=== PATIENT | female | born 1940 | race Caucasian/White ===

== ENCOUNTER 2024-01-09 08:17 | Outpatient (CLI) | payer MEDICARE, SELFPAY ==
--- NOTE | ~2024-01-09 | MR_ITS ---
EXAMINATION: MR lumbar spine wo con DATE: 01/09/2024 08:43 INDICATION: Low back pain TECHNIQUE: Magnetic resonance imaging (MRI) of the lumbar spine was performed without intravenous con trast. Sequences included sagittal T2-weighted FSE, sagittal T2-weighted FS FSE, sagittal T1-weighted FSE, and axial T2-weighted FSE. COMPARISON: None FINDINGS: Minimal lumbar dextrocurvature. 3 mm anterolisthesis L4 on L5 and 1.5 mm anterolisthesis L3 on L4. Ve rtebral body heights are normal. Osteoarthritis related in subarticular edema-like signal change at a few of the lower lumbar facet joints. Otherwise normal marrow signal. Mild disc height loss at L2-L4 L5. Annular fissures at L3-L4 and L4-L5. The conus medullaris terminates at L1-L2. There is normal s ignal in the caudal spinal cord. Paravertebral soft tissues are unremarkable. The following disc leve ls are specifically discussed: T12-L1: Negligible central disc protrusion. There is moderate left and severe right facet joint osteo arthritis. There is no neural foraminal stenosis. There is no central canal stenosis. L1-L2: Disc is bulging. There is moderate bilateral facet joint osteoarthritis. There is mild bilater al neural foraminal stenosis. There is mild central canal stenosis. L2-L3: Disc is bulging. There is hypertrophy of the ligamentum flavum. There is moderate left and se kaur right facet joint osteoarthritis. There is old right and mild to moderate left neural foraminal stenosis. There is moderate central canal stenosis. L3-L4: Disc is bulging, more prominently on the left. There is hypertrophy of the ligamentum flavum. There is severe bilateral facet joint osteoarthritis. There is moderate bilateral, left greater than right neural foraminal stenosis. There is severe central canal stenosis measuring 6 mm AP in the mid sagittal plane and with effacement of the CSF signal surrounding the centrally clustered nerve roots. L4-L5: Disc is mildly bulging. There is severe bilateral facet joint osteoarthritis. There is mild to moderate bilateral neural foraminal stenosis. There is mild central canal stenosis including narrowi ng of the left and right lateral recesses. L5-S1: Disc is mildly bulging. There is severe bilateral facet joint osteoarthritis. There is bilater al neural foraminal stenosis. There is minimal central canal stenosis with mild narrowing of the left lateral recess. IMPRESSION: 1. Mild lumbar spondylosis with multilevel moderate to severe facet osteoarthritis is notable for sev ere central canal stenosis at L3-L4. Reviewed, dictated and finalized at location B. IMPRESSION: 1. Mild lumbar spondylosis with multilevel moderate to severe facet osteoarthri tis is notable for severe central canal stenosis at L3-L4.
== END 2024-01-09 08:18 | disposition home or self-care (01) ==
LOC: ANHIMG 08:20
PROVIDERS: PCP Internal Medicine; Visit Provider Orthopaedic Surgery
DX: M43.06 Spondylolysis, lumbar region (principal); M48.061 Spinal stenosis, lumbar region without neurogenic claudication
CPT/HCPCS: 72148

== ENCOUNTER 2024-03-04 10:14 | Outpatient (CLI) | payer MEDICARE, SELFPAY ==
--- NOTE | 2024-03-04 10:24 | ECG_ITS ---
Test Date: 2024-03-04 10:29:30 Measurements Intervals [place] Rate: 85 P: 55 [place]: 166 QRS: -32 QRSD: 135 T: 75 QT: 364 QTc: 434 Interpretive Statements SINUS RHYTHM LEFT AXIS DEVIATION LEFT BUNDLE BRANCH BLOCK BASELINE ARTIFACT- I, II, III, AVR, AVL, AVF ABNORMAL ECG No previous ECG available for comparison Electronically Signed On 03-04-2024 10:36:46 [employer] WORK[employer] by Mark Mendoza D.O.
[2024-03-04 10:50] LABS: Hematocrit 35.9 % (37.0-47.0); Hemoglobin 11.2 g/dL (12.0-15.0); Mean Corpuscular HGB Conc 31.2 g/dl (32-36); Mean Corpuscular Hemoglobin 32.4 pg (26-34); Mean Corpuscular Volume 103.8 fl (80-100); Mean Platelet Volume 9.5 fl (7.4-10.4); Platelet Count Result 224 k/mm3 (150-375); Red Blood Count 3.46 M/mm3 (4.2-5.4); Red Cell Distribution Width 12.9 % (11.5-14.5); White Blood Count 5.9 K/mm3 (4.5-10.0)
[2024-03-04 10:58] LABS: INR 0.9; Prothrombin Time 12.3 Seconds (11.1-14.7)
[2024-03-04 10:59] LABS: Partial Thromboplastin Time 36.9 Seconds (22.3-36.8)
[2024-03-04 11:10] LABS: Anion Gap 10 mmol/L (4-12); Blood Urea Nitrogen 21 mg/dL (7-17); Calcium 9.8 mg/dL (8.4-10.2); Carbon Dioxide 26 mmol/L (22-30); Chloride 105 mmol/L (98-107); Estimated Glomerular Filt Rate 39; Glucose 92 mg/dL (65-110); Potassium 4.5 mmol/L (3.4-5.0); Sodium 141 mmol/L (137-145)
[2024-03-04 11:19] LABS: Add Urine Microscopic? NO; Appearance Urine Clear (Clear); Bacteria Urine None Seen /hpf; Bilirubin Urine Negative (Negative); Blood Urine Non-Hemolyzed Trace (Negative); Color Urine Yellow (Yellow); Glucose Urine UA Negative (Negative); Hyaline Casts Urine Present /lpf; Ketones Urine Trace mg/dL (Negative); Leukocyte Esterase Ur Negative LEU/UL (Negative); Need Manual Microscopic Reviewed; Nitrate Urine Negative (Negative); Protein Urine Negative (Negative); Specific Grav Ur 1.033 (1.001-1.035); Squamous Epithelial Cell Urine None Seen /hpf (Few); Urobilinogen Urine 0.2 mg/dL (<2.0); WBC Urine 0-5 /hpf (0-3)
== END 2024-03-04 10:15 | disposition home or self-care (01) ==
LOC: ANHSURGERY 10:19
PROVIDERS: PCP Internal Medicine; Visit Provider Neurological Surgery
DX: Z01.818 Encounter for other preprocedural examination (principal); R94.31 Abnormal electrocardiogram [ECG] [EKG]; M48.062 Spinal stenosis, lumbar region with neurogenic claudication; I10 Essential (primary) hypertension
CPT/HCPCS: 36415; 80048; 81003; 85027; 85610; 85730; 93005

== ENCOUNTER 2024-05-28 11:52 | Outpatient (CLI) | payer MEDICARE, SELFPAY ==
--- OUTSIDE RECORDS SUMMARY | 2024-05-28 03:01 | XMS_ITS ---
Author Organization [facility] Address [address] [place] [address] Care Team Providers Care House Calls Nurse Name Role Phone Rm Sinclair Unavailable [phone] MEDICATIONS Medication SIG (Take, Route, Frequency, Duration) Notes Start Date End Date Status Ergocalciferol 1.25 MG (87389 UT) 1 capsule Orally Once a week for 90 day(s) 11/06/2023 2024 Active Vitamin D (Ergocalciferol) 1.25 MG (97651 UT) TAKE 1 CAPSULE BY MOUTH 1 TIME A MONTH for 90 Active Omeprazole 40 MG 1 capsule 30 minutes before morning meal Orally Once a day Active Calcitriol 0.25 MCG TAKE 1 CASULE BY AYAZ TH EVERY OTHER DAY for 180 Active Lisinopril 10 MG 1 tablet Orally Once a day Active Citalopram Hydrobromide 20 MG 1 tablet Orally Once a day Active Atorvastatin Calcium 10 MG 1 tablet Oral ly Once a day Active Calcium 600 MG 1 tablet with meals Orally Twice a day Active Diclofenac Sodium 75 MG 1 tablet as need ed Orally Twice a day Active amLODIPine Besylate 10 MG 1 tablet Orall y Once a day Active Encounters Encounter Location Date Provider Diagnosis [facility] [address] [facility] [address] [place] [address] 12/14/2023 Rm Sinclair Chronic kidney disease, stage 3a N18.31 ; Essential hypertension I10 ; Anemia, unspecified D64.9 ; Anxiety disorder, unspecified F41.9 and Gastro-esophageal reflux disease with esophagitis, without bleeding K21.00 ASSESSMENTS Encounter Date Diagnosis Assessment Notes Treatment Notes Treatment Clinical Notes Section Notes 12/14/2023 Chronic kidney disease, stage 3a (ICD-10 - N18.31) 12/14/2023 Essential hypertension (ICD-10 - I10) 12/14/2023 Anemia, unspecified (ICD-10 - D64.9) 12/14/2023 Anxiety disorder, unspecified (ICD-10 - F41.9) 12/14/2023 Gastro-esophageal reflux disease with esophagitis, without bleeding (ICD-10 - K21.00) PLAN OF TREATMENT Next Appt Details Provider Name:Rm Sinclair , 06/11/2024 02:00:00 PM, [address], [facility] [address], [place], [address], Progress Notes * LUKAS CAPPSDOB: [birth year] (83 yo F)Acc No.[id number]:12/14/2023 Progress Notes Patient:??LUKAS CAPPS Provider:??MD ELIZABETH, F.A.C.P, F.A.S .N. :1940?Age:83 Y?Sex:Fe male Date:12/14/2023 Address:[facility] [place] [address] Subjective: * Chief Complaints: * ? * Medical History:?? * Medications:??Taking Calcium 600 MG Tablet 1 tablet with meals Orally Twice a day , Taking Citalopram Hydrobromide 20 MG Tablet 1 tablet Orally Once a day , Taking Atorvastatin Calcium 10 MG Tablet 1 tablet Orally Once a day , Taking Diclofenac Sodium 75 MG Tablet Delayed Release 1 tablet as needed Orally Twice a day , Taking amLODIPine Besylate 10 MG Tablet 1 tablet Orally Once a day , Taking Lisinopril 10 MG Tablet 1 tablet Orally Once a day , Taking Omeprazole 40 MG Capsule Delayed Release 1 capsule 30 minutes before morning meal Orally Once a day , Taking Calcitriol 0.25 MCG Capsule TAKE 1 CASULE BY MOUTH EVERY OTHER DAY , Taking Ergocalciferol 1.25 MG (68960 UT) Capsule 1 capsule Orally Once a week , stop date 2024, Taking Vitamin D (Ergocalciferol) 1.25 MG (89510 UT) Capsule TAKE 1 CAPSULE BY MOUTH 1 TIME A MONTH Objective: Assessment: * Assessment: 1.??Chronic kidney disease, stage 3a - N18.31 (Primary)??2.??Essential hypertension - I10??3.??Anemia, unspecified - D64.9??4.??Anxiety disorder, unspecified - F41.9??5.??Gastro-esophageal reflux disease with esophagitis, without bleeding - K21.00?? Plan: * Treatment: * Billing Information: * Visit Code:?? [id number] Office Visit, Est Pt., Level 4. * Procedure Codes:?? * IC MAN Sign off status: Pending * Provider:??MD ELIZABETH, F.A.C.P, F.A.S .N. Date:??12/14/2023
--- OUTSIDE RECORDS SUMMARY | 2024-05-28 03:01 | XMS_ITS | Patient Health Summary ---
Author Organization [facility] Address [address] [place] [address] Care Team Providers Care Cattle Examiner Name Role Phone Rm Sinclair MD Unavailable [phone] Note from [facility],non-owned Affiliates and Associated Physician Practices is amultiple site organization consisting of ambulatory clinics and hospital sitesin [place], [place], [place] and [place]. This disclosure is being madepursuant to the Care Everywhere program and may not contain all information available regarding this patient. Last updated 18.[facility] Allergies No known active allergies Medications * Be aware that medications may not be up to date on this document. Alwaysverify current medications with the patient. * amLODIPine (Norvasc) 10 MG tablet Take 1 (one) tablet by mouth once daily * lisinopril (Prinivil; Zestril) 10 MG tablet Take 1 (one) tablet by mouth once daily * atorvastatin (Lipitor) 10 MG tablet Take 1 (one) tablet by mouth at bedtime * citalopram (CeleXA) 20 MG tablet Take 1 (one) tablet by mouth at bedtime * calcitriol (Rocaltrol) 0.25 MCG capsule Take 1 (one) capsule by mouth every 2 days * vitamin D, ergocalciferol, (Drisdol) 1.25 MG (19553 UT) capsule Take 1 (one) capsule by mouth every 30 days * acetaminophen (Tylenol) 500 MG tablet Take 1 (one) tablet by mouth every 4 hours as needed for Fever or Pain Maximum allowable Acetaminophen amount = 4 Grams (4000 mg) / 24 hours. * omeprazole (PriLOSEC) 40 MG capsule omeprazole 40 mg cpdr Social History Tobacco Use Types Packs/Day Years Used Date Smoking Tobacco: Never Smokeless Tobacco: Never Tobacco Cessation:Counseling Given: Not Answered Alcohol Use Standard Drinks/Week Comments Never 0 (1 standard drink = 0.6 oz pur e alcohol) Sex and Gender Information Value Date Recorded Sex Assigned at Not on file Gender Identity Not on file Sexual Orientation Not on file Last Filed Vital Signs Vital Sign Reading Time Taken Comments Blood Pressure 154/71 05/03/2022 1:25 PM MUSHROOM FARMER Pulse 80 05/03/2022 1:25 PM MUSHROOM FARMER Temperature 36.5 ??C (97.7 ??F) 05/03/2022 1:06 PM CS T Respiratory Rate 16 05/03/2022 1:25 PM MUSHROOM FARMER Oxygen Saturation 98% 05/03/2022 1:25 PM MUSHROOM FARMER Inhaled Oxygen Concentration - - Weight 54 kg (119 lb) 05/03/2022 9:55 AM MUSHROOM FARMER Height 157.5 cm (5' 2 ) 05/03/2022 9:55 AM MUSHROOM FARMER Body Mass Index 21.77 05/03/2022 9:55 AM MUSHROOM FARMER Medical Devices Explanted Type Area Trade Economist Device Identifier Shelf Expiration Date Model / Serial / Lot Stent Biliary 10fr 7cm Cntr Bnd [facility] Rap - [id number] Implanted:Qty: 1 on 03/01/2022 by Tam Moncada MD at [facility] Explanted:Qty: 1 on 05/03/2022 by Tam Moncada MD at [facility] N/A: Bile Duct [employer] 11/08/2023 [id number] / [id number] / [id number] Procedures * ENDOSCOPIC RETROGRADE CHOLANGIOPANCREATOGRAPHY (ERCP)(Performed 05/03/2022) Performed for Calculus of gallbladder without cholecystitis without obstruction * ENDOTRACHEAL TUBE NOTE(Performed 05/03/2022) * ERCP(Performed 05/03/2022) * ENDOSCOPIC RETROGRADE CHOLANGIOPANCREATOGRAPHY (ERCP)(Performed 03/01/2022) Performed for Gallstones * ERCP(Performed 03/01/2022) * DERMATOPATHOLOGY(Performed 01/01/2013) Results * ETT LINE PERFORMABLE (05/03/2022 11:40 AM MUSHROOM FARMER) Narrative Tamiko Gonzalez Anes Asst - 05/03/2022 11:40 AM MUSHROOM FARMER Tamiko Gonzalez Anes Asst ? 05/03/2022 11:50 AM Endotracheal Tube Placement: ? Patient Location: OR. Intubation Event Date/Time: ??05/03/2022 11:40 AM Procedure: intubation (91585). Procedure Section: ?? Sedation: under general anesthesia. Indications for Airway Management: ??anesthesia Procedure pretreatments used? ??No Induction: standard IV Patient Position: ??sniffing Mask Ventilation: easy. Blade Type: Xie Blade Size: 2 Laryngoscopy View: grade 1 (full cords) Intubation Adjuncts: stylet Tube: endotracheal tube Placement: oral Tube type: cuff - inflated Tube Size (MM): 7 Depth of Insertion (CM): 21 Measured From: lips Cuff Inflated With: air Number of Attempts: 1. Placement Verified By: direct visualization, bilateral breath sounds, chest auscultation and CO2 monitor CXR Findings: ETT in proper place. Tube secured with: ??adhesive tape. Dentition unchanged? ??Yes Difficult Airway? ??No. Procedure Start Time: 05/03/2022 11:40 AM. Staff Section ? Anesthesia Provider: Tamiko Gonzalez Anes Asst, Performed the procedure Lexi Rodgers MD GENERAL ANESTHESIA O RDERABLES * ERCP (05/03/2022 11:17 AM MUSHROOM FARMER) Report Endoscopy POC Endoscopy Department Report _ Patient Name: Ashley Chaidez ?Procedure Date: 05/03/2022 11:17 AM ?Date of : 1940 Classification: Outpatient ?Gender: Female Ethnicity: Not or ? Race: White _ Providers: ?Tam Marx MD Referring : ? Maulik Tubbs MD Procedure: ?ERCP Indications: ?Biliary stent removal Medications: ?See the Anesthesia note for documentation of the ?administered medications ?IVFs w/ LR, Indomethacin not given due to renal ?function Patient Profile: ?81F presents for repeat ERCP for stone removal and ?stent removal / revision. ERCP 02/2022: ?Choledocholithiasis treated via biliary ?sphincterotomy and balloon extraction of debris and ?stone fragments with incomplete clearance. One 10 ?Fr by 7 cm transpapillary plastic stent was placed ?into the? ? ?main bile duct. Description of Procedure: After obtaining informed consent, the scope was ?passed under direct vision. Throughout the ?procedure, the patient's blood pressure, pulse, and ?oxygen saturations were monitored continuously. The ?Duodenoscope was introduced through the mouth, and ?advanced to the duodenum and used to inject ?contrast into the bile duct. The ERCP was ?accomplished without difficulty. The patient ?tolerated the procedure well. ? Findings: ? A pre-existing plastic biliary stent was visible on the digital sales director film. The ? esophagus was successfully intubated under direct vision without ? detailed examination of the upper GI tract given the use of a ? sideviewing duodenoscope. A biliary sphincterotomy had been performed. ? The sphincterotomy appeared open. One plastic stent originating in the ? biliary tree was seen emerging from the major papilla. The stent was ? visibly patent. The stent was removed from the biliary tree using a ? snare. A short 0.035 inch soft Jagwire was easily passed into the ? biliary tree on first attempt. An adjustable biliary extraction balloon ? cannula was passed over the guidewire and the bile duct was then deeply ? cannulated. Contrast was injected. I personally interpreted the bile ? duct images. Ductal flow of contrast was adequate. Image quality was ? adequate. Contrast extended to the hepatic ducts. There were multiple ? small filling defects in the common bile duct consistent with stones. ? The biliary tree was swept with an adjustable biliary extraction balloon ? starting at the bifurcation. Many stones / stone fragments were removed ? till complete clearance. Preparations were made for cholangiography ? using the balloon occlusion technique. The balloon-tipped catheter was ? advanced to the hepatic duct bifurcation. The balloon was inflated to 15 ? mm in size. Contrast was then injected into the biliary tree and ? opacified the intrahepatic ducts. No residual filling defects were ? present. There was no indication for biliary stent replacement. ? Estimated Blood Loss: ? Estimated blood loss was minimal. Complications: ?No immediate complications. Impression: ? - Patent pre-existing biliary sphincterotomy with ?one transpapillary plastic biliary stent in place. ?The stent was removed. ?- Cholangiogram with residual stones in the main ?bile duct, completely removed via balloon ?extraction with complete ductal clearance. Moderate Sedation: ? GA Recommendation: ? - Monitor for fevers, bleeding, abdominal pain, ?jaundice. ?- Resume previous diet and medications. ?- Follow-up with Primary Care has been discussed ?with the patient/caregiver. ?- The potential complications and concerning ?symptoms/findings, including but not limited to ?early or delayed fevers, infection, pain, bleeding, ?pancreatitis and perforation, were discussed with ?the patient/caregiver. Emergency contact ?information was provided. ? Attending Participation: ??I personally performed the entire procedure. ? Procedure Code(s): ? --- Professional --- ? 05020, Endoscopic retrograde cholangiopancreatography (ERCP); with ? removal of foreign body(s) or stent(s) from biliary/pancreatic duct(s) ? 24550, Endoscopic retrograde cholangiopancreatography (ERCP); with ? removal of calculi/debris from biliary/pancreatic duct(s) ? 42417, Endoscopic catheterization of the biliary ductal system, ? radiological supervision and interpretation Diagnosis Code(s): ?--- Professional --- ?Z96.89, Presence of other specified functional ?implants ?K80.50, Calculus of bile duct without cholangitis ?or cholecystitis without obstruction ?Z46.59, Encounter for fitting and adjustment of ?other gastrointestinal appliance and device CPT copyright 2019 [employer]. All rights reserved. The codes documented in this report are preliminary and upon spindle tester review may be revised to meet current compliance requirements. Tam Marx MD 05/03/2022 12:17:03 PM Note Initiated On: 05/03/2022 11:17 AM Number of Addenda: 0 ? [address] [place] [address] [facility] 05/03/2022 11:1 7 AM MUSHROOM FARMER Tam Marx MD GI PROCEDURE ORDERABLES [facility] * ERCP (03/01/2022 8:23 AM CDT) Report Endoscopy POC Endoscopy Department Report _ Patient Name: Ashley Chaidez ?Procedure Date: 03/01/2022 8:23 AM ?Date of : 1940 Classification: Outpatient ?Gender: Female Ethnicity: Not or ? Race: White _ Providers: ?Tam Marx MD Referring MD: ? Maulik Tubbs MD Procedure: ?ERCP Indications: ?Common bile duct stone(s) Medications: ?See the Anesthesia note for documentation of the ?administered medications ?IVFs w/ LR, Indomethacin not given due to renal ?function Patient Profile: ?81F presents as direct referral for ERCP in the ?setting of abdominal pain w/ recent MRI/MRCP ?demonstrating cholelithiasis and ?choledocholithiasis. Description of Procedure: After obtaining informed consent, the scope was ?passed under direct vision. Throughout the ?procedure, the patient's blood pressure, pulse, and ?oxygen saturations were monitored continuously. The ?duodenoscope was introduced through the mouth, and ?advanced to the duodenum and used to inject ?contrast into the bile duct. The ERCP was ?accomplished without difficulty. The patient ?tolerated the procedure well. ? Findings: ? The digital sales director film was normal. The esophagus was successfully intubated ? under direct vision. The scope was advanced to a normal major papilla in ? the descending duodenum without detailed examination of the upper GI ? tract given the use of a sideviwing duodenoscope. A short 0.035 inch ? soft Jagwire was easily passed into the biliary tree on first attempt. A ? short-nosed traction sphincterotome cannula was passed over the ? guidewire and the bile duct was then deeply cannulated. Contrast was ? injected. I personally interpreted the bile duct images. Ductal flow of ? contrast was adequate. Image quality was adequate. Contrast extended to ? the hepatic ducts. The main extrahepatic bile duct was diffusely ? dilated, measuring approximately 14 mm in diameter. A filling defect ? thought to represent a stone, measuring approximately 10 mm in size was ? found in the common bile duct. The cystic duct was patent. A biliary ? sphincterotomy was made with a traction (standard) sphincterotome using ? ERBE electrocautery. There was no post-sphincterotomy bleeding. The ? biliary tree was swept with a 9-12 mm adjustable biliary extraction ? balloon starting at the bifurcation. Debris and stone fragments were ? swept from the duct with incomplete clearance. One 10 Fr by 7 cm ? transpapillary plastic stent with a single external flap and a single ? internal flap was placed into the main bile duct. Bile flowed through ? the stent. The stent was in good position. ? Estimated Blood Loss: ? Estimated blood loss was minimal. Complications: ?No immediate complications. Impression: ? - Choledocholithiasis treated via biliary ?sphincterotomy and balloon extraction of debris and ?stone fragments with incomplete clearance. ?- One 10 Fr by 7 cm transpapillary plastic stent ?was placed into the main bile duct. Moderate Sedation: ? MAC Recommendation: ? - Monitor for fevers, bleeding, abdominal pain, ?jaundice. ?- If pain free, start clear liquid diet today, then ?advance to low fat diet as tolerated tomorrow. ?- Hold any anticoagulant medications (blood ?thinners) for 2 days. Resume rest of home ?medications today. ?- Plan for repeat ERCP in 2 months. ?- Follow-up with General Surgery for expedited ?Cholecystectomy. ?- Follow-up with the referring providers has been ?discussed with the patient/caregiver. ?- The potential complications and concerning ?symptoms/findings, including but not limited to ?early or delayed fevers, infection, pain, bleeding, ?pancreatitis and perforation, were discussed with ?the patient/caregiver. Emergency contact ?information was provided. ? Attending Participation: ??I personally performed the entire procedure. ? Procedure Code(s): ? --- Professional --- ? 06678, Endoscopic retrograde cholangiopancreatography (ERCP); with ? placement of endoscopic stent into biliary or pancreatic duct, including ? pre- and post-dilation and guide wire passage, when performed, including ? sphincterotomy, when performed, each stent ? 38197, Endoscopic retrograde cholangiopancreatography (ERCP); with ? removal of calculi/debris from biliary/pancreatic duct(s) ? 17815, Endoscopic catheterization of the biliary ductal system, ? radiological supervision and interpretation Diagnosis Code(s): ?--- Professional --- ?K80.50, Calculus of bile duct without cholangitis ?or cholecystitis without obstruction CPT copyright 2019 [employer]. All rights reserved. The codes documented in this report are preliminary and upon spindle tester review may be revised to meet current compliance requirements. Tam Marx MD 03/01/2022 11:31:40 AM Note Initiated On: 03/01/2022 8:23 AM Number of Addenda: 0 ? [address] [id number] [facility] 03/01/2022 8:23 AM CDT Tam Marx MD GI PROCEDURE ORDERABLES [facility] * PATHOLOGY TISSUE FOR DERMATOLOGY (01/01/2013 12:00 AM CDT) Result CASE: [id number] PATIENT: ASHLEY CHAIDEZ PATHOLOGIC DIAGNOSIS: A. ??Right forearm distal: BLUE NEVUS, SCLEROTIC TYPE B. ??Right forearm proximal: SEBORRHEIC KERATOSIS, MACULAR C. ??Right wrist: SEBORRHEIC KERATOSIS, MACULAR CLINICAL DATA: A: ??Blue nevus. B: ??SK. C: ??SK. GROSS DESCRIPTION: A: ??Received is one formalin filled container labeled with the patient's name and designated right forearm distal. The specimen consists of a shave biopsy measuring 5x3x1 mm. Jar 0. B: ??Received is one formalin filled container labeled with the patient's name and designated right forearm proximal. The specimen consists of a shave biopsy measuring 7x6x1 mm. Jar 0. C: ??Received is one formalin filled container labeled with the patient's name and designated right wrist. The specimen consists of a shave biopsy measuring 6x4x1 mm. Jar 0. MICROSCOPIC DESCRIPTION: SPECIMEN ??A: Within the dermis there are is a relatively well circumscribed central nodule with thick collagen bundles arranged in a storiform pattern with prominent clefts. Oval, spindle-shaped and dendritic melanocytes are seen within the nodule. SPECIMEN ??B: Sections show a relatively broad, flat proliferation of small keratinocytes. The surface is gently papillated, and there is increased basilar pigmentation. SPECIMEN ??C: Sections show a relatively broad, flat proliferation of small keratinocytes. The surface is gently papillated, and there is increased basilar pigmentation. Electronically signed out by Fallon Monroe M.D., PhD. 01/03/2013 11:46:24AM [facility] Comment: Performed at: Dermatopathology Laboratory [facility] - Department of Dermatology [address] [place] [address] Phone number: [phone] Toll Free: [phone] FAX: [phone] 01/01/2013 01/02/2013 [facility] - PATHOLOGY/CYTO LOGY ORDERABLES Performing Organization Address City/State/ZIP [place] Phone Number [facility] [address] [facility] Lab [address] [phone] Care Teams Cattle Examiner Relationship Specialty [place] [address] [place] [address] PCP - [facility] 02/29/24
--- OUTSIDE RECORDS SUMMARY | 2024-05-28 03:01 | XMS_ITS | Clinical Summary ---
Author Organization [facility] Address [address] [place] [address] Care Team Providers Care Retail Coverage Merchandiser Name Role Phone Rm Sinclair MD Unavailable [phone] Source Comments [facility],non-owned Affiliates and Associated Physician Practices is amultiple site organization consisting of ambulatory clinics and hospital sitesin [place], [place], [place] and [place]. This disclosure is being madepursuant to the Care Everywhere program and may not contain all information available regarding this patient. Last updated 18.[facility] Allergies No known active allergies Medications * Be aware that medications may not be up to date on this document. Alwaysverify current medications with the patient. Medication Sig Dispensed Refills Start Date End Date Status amLODIPine (Norvasc) 10 MG tablet Take 1 (one) tablet by mouth once daily Active lisinopril (Prinivil; Zestril) 10 MG tablet Take 1 (one) tablet by mouth once daily Active atorvastatin (Lipitor) 10 MG tablet Take 1 (one) tablet by mouth at bedtime Active citalopram (CeleXA) 20 MG tablet Take 1 (one) tablet by mouth at bedtime Active calcitriol (Rocaltrol) 0.25 MCG capsule Take 1 (one) capsule by mouth every 2 days Active vitamin D, ergocalciferol, (Drisdol) 1.25 MG (92747 UT) capsule Take 1 (one) capsule by mouth every 30 days Active acetaminophen (Tylenol) 500 MG tablet Take 1 (one) tablet by mouth every 4 hours as needed for Fever or Pain Maximum allowable Acetaminophen amount = 4 Grams (4000 mg) / 24 hours. Active omeprazole (PriLOSEC) 40 MG capsule omeprazole 40 mg cpdr Act michelle Social History Tobacco Use Types Packs/Day Years [...] Comments Blood Pressure 154/71 05/03/2022 1:25 PM RETAIL PRICING COORDINATOR Pulse 80 05/03/2022 1:25 PM RETAIL PRICING COORDINATOR Temperature 36.5 ??C (97.7 ??F) 05/03/2022 1:06 PM CS T Respiratory Rate 16 05/03/2022 1:25 PM RETAIL PRICING COORDINATOR Oxygen Saturation 98% 05/03/2022 1:25 PM RETAIL PRICING COORDINATOR Inhaled Oxygen Concentration - - Weight 54 kg (119 lb) 05/03/2022 9:55 AM RETAIL PRICING COORDINATOR Height 157.5 cm (5' 2 ) 05/03/2022 9:55 AM RETAIL PRICING COORDINATOR Body Mass Index 21.77 05/03/2022 9:55 AM RETAIL PRICING COORDINATOR Plan of Treatment Health Maintenance Due Date Last Done Comments BONE DENSITY TESTING 1940 MEDICARE AWV ? 12 MONTHS 1940 DTAP/TDAP/TD VACCINES (1 - Tdap) 1961 PNEUMOCOCCAL VACCINE 50+ (1 of 1 - PCV) 1992 ZOSTER VACCINE (1 of 2) 1992 Respiratory Syncytial Virus (RSV) Vaccine Pt: or over 60 yrs (1 - 1-dose 75+ series) 2017 COVID-19 VACCINE (2 - season) 2023 02/21/2021 INFLUENZA VACCINE (#1) 2023 , 01/08/2019, 01/11/2017, Additional history exists DEPRESSION SCREENING 04/30/2024 HEPATITIS B VACCINE Aged Out No longe r eligible based on patient's age to complete this topic HIB VACCINE Aged Out No longer eligi ble based on patient's age to complete this topic HPV VACCINE Aged Out No longer eligi ble based on patient's age to complete this topic MENINGOCOCCAL (Group B) VACCINE Aged Out No longer eligible based on patient's age to complete this topic MENINGOCOCCAL VACCINE Aged Out No deana hussein eligible based on patient's age to complete this topic Medical Devices Explanted Type Area Catheterization Laboratory Technician Device Identifier Shelf Expiration Date Model / Serial / Lot Stent Biliary 10fr 7cm Cntr Bnd Temp [facility] - [id number] Implanted:Qty: 1 on 03/01/2022 by Tam Moncada MD at [facility] Explanted:Qty: 1 on 05/03/2022 by Tam Moncada MD at [facility] N/A: Bile Duct [employer] Micro[employer] 11/08/2023 [id number] / [id number] / [id number] Care Teams Retail Coverage Merchandiser Relationship Specialty [place] [address] [place] [address] PCP - [facility] 02/29/24
--- OUTSIDE RECORDS SUMMARY | 2024-05-28 03:01 | XMS_ITS | Patient Health Record ---
Author Organization [facility] [facility] Address [address] [facility] [address] [facility] [address] [place] [address] Care Team Providers Care Java Analyst Name Role Phone Rm Sinclair Unavailable [phone] REASON FOR REFERRAL No Information MEDICATIONS Medication SIG (Take, Route, Frequency, Duration) Notes Start Date End Date Status Atorvastatin Calcium 10 MG 1 tablet Oral ly Once a day Active Diclofenac Sodium 75 MG 1 tablet as need ed Orally Twice a day Active amLODIPine Besylate 10 MG 1 tablet Orall y Once a day Active Lisinopril 10 MG 1 tablet Orally Once a day Active Omeprazole 40 MG 1 capsule 30 minutes before morning meal Orally Once a day Active Calcitriol 0.25 MCG TAKE 1 CASULE BY AYAZ TH EVERY OTHER DAY for 180 Active Ergocalciferol 1.25 MG (53049 UT) 1 capsule Orally Once a week for 90 day(s) 11/06/2023 2024 Active Vitamin D (Ergocalciferol) 1.25 MG (21790 UT) TAKE 1 CAPSULE BY MOUTH 1 TIME A MONTH for 90 Active Calcium 600 MG 1 tablet with meals Orally Twice a day Active Citalopram Hydrobromide 20 MG 1 tablet Orally Once a day Active PROBLEMS Problem Type ICD Code Onset Dates Problem Status W/U Status Risk SNOMED Code Notes Problem Anxiety disorder, unspecified (F41.9) Active confirmed Anxiety disorde r (847290841) Problem Essential hypertension (I10) Active confirmed Essential hypertension (08894858) Problem Gastro-esophage al reflux disease with esophagitis, without bleeding (K21.00) Active confirmed Gastroesophagea l reflux disease with esophagitis (disorder) (992933078) Problem Chronic kidney disease, stage 3a (N18.31) Active confirmed Chronic kidney disease stage 3A (disorder) (895372760) Encounters Encounter Location Date Provider Diagnosis [place] [facility] [address] [facility] [address] [place] [address] 06/06/2023 Rm Sinclair Chronic kidney disease, stage 3a N18.31 ; Essential hypertension I10 ; Anxiety disorder, unspecified F41.9 and Gastro-esophageal reflux disease with esophagitis, without bleeding K21.00 [facility] [address] [place] [address] 09/14/2023 Rm Sinclair Chronic kidney disease, stage 3a N18.31 ; Essential hypertension I10 ; Anxiety disorder, unspecified F41.9 and Gastro-esophageal reflux disease with esophagitis, without bleeding K21.00 [facility] [address] [place] [address] 12/14/2023 Rm Sinclair Chronic kidney disease, stage 3a N18.31 ; Essential hypertension I10 ; Anemia, unspecified D64.9 ; Anxiety disorder, unspecified F41.9 and Gastro-esophageal reflux disease with esophagitis, without bleeding K21.00 [facility] [address] [place] [address] 03/14/2024 Rmpati Sinclair Chronic kidney disease, stage 3a N18.31 ; Essential hypertension I10 ; Anxiety disorder, unspecified F41.9 and Gastro-esophageal reflux disease with esophagitis, without bleeding K21.00 [facility] [address] [place] [address] 11/06/2023 Rmpati Sinclair ASSESSMENTS Encounter Date Diagnosis Assessment Notes Treatment Notes Treatment Clinical Notes Section Notes 06/06/2023 Chronic kidney disease, stage 3a (ICD-10 - N18.31) 09/14/2023 Chronic kidney disease, stage 3a (ICD-10 - N18.31) 12/14/2023 Essential hypertension (ICD-10 - I10) 12/14/2023 Chronic kidney disease, stage 3a (ICD-10 - N18.31) 03/14/2024 Chronic kidney disease, stage 3a (ICD-10 - N18.31) 03/14/2024 Essential hypertension (ICD-10 - I10) 12/14/2023 Anemia, unspecified (ICD-10 - D64.9) 09/14/2023 Essential hypertension (ICD-10 - I10) 06/06/2023 Essential hypertension (ICD-10 - I10) 06/06/2023 Anxiety disorder, unspecified (ICD-10 - F41.9) 09/14/2023 Anxiety disorder, unspecified (ICD-10 - F41.9) 12/14/2023 Anxiety disorder, unspecified (ICD-10 - F41.9) 03/14/2024 Anxiety disorder, unspecified (ICD-10 - F41.9) 12/14/2023 Gastro-esophageal reflux disease with esophagitis, without bleeding (ICD-10 - K21.00) 09/14/2023 Gastro-esophageal reflux disease with esophagitis, without bleeding (ICD-10 - K21.00) 06/06/2023 Gastro-esophageal reflux disease with esophagitis, without bleeding (ICD-10 - K21.00) 03/14/2024 Gastro-esophageal reflux disease with esophagitis, without bleeding (ICD-10 - K21.00) PLAN OF TREATMENT Next Appt Details Provider Name:Rm Sinclair , 06/11/2024 02:00:00 PM, [address] [facility], [facility] [address] [place], [address],
--- OUTSIDE RECORDS SUMMARY | 2024-05-28 03:01 | XMS_ITS | Referral Summary ---
Author Organization [facility] Address [address] [facility] [place] [address] Care Team Providers Care Hydrocrane Operator Name Role Phone Rm Sinclair MD Unavailable [phone] Source Comments [facility],non-owned Affiliates and Associated Physician Practices is amultiple site organization consisting of ambulatory clinics and hospital sitesin [place], [place], [place] and [place]. This disclosure is being madepursuant to the Care Everywhere program and may not contain all information available regarding this patient. Last updated 18.[facility] Allergies No known active allergies Medications * [...] Active vitamin D, ergocalciferol, (Drisdol) 1.25 MG (11180 UT) capsule Take 1 (one) capsule by [...] Comments Blood Pressure 154/71 05/03/2022 1:25 PM BREAKER UNIT ASSEMBLER Pulse 80 05/03/2022 1:25 PM BREAKER UNIT ASSEMBLER Temperature 36.5 ??C (97.7 ??F) 05/03/2022 1:06 PM CS T Respiratory Rate 16 05/03/2022 1:25 PM BREAKER UNIT ASSEMBLER Oxygen Saturation 98% 05/03/2022 1:25 PM BREAKER UNIT ASSEMBLER Inhaled Oxygen Concentration - - Weight 54 kg (119 lb) 05/03/2022 9:55 AM BREAKER UNIT ASSEMBLER Height 157.5 cm (5' 2 ) 05/03/2022 9:55 AM BREAKER UNIT ASSEMBLER Body Mass Index 21.77 05/03/2022 9:55 AM BREAKER UNIT ASSEMBLER Functional Status Functional Status Response Date of Assess ment Is person deaf or have serious hearing difficult y? No 05/03/2022 Is person blind or have serious difficulty seein g? No 05/03/2022 Does person have serious dif ficulty walking/climbing stairs? No 05/03/2022 Does person have difficulty dressing/bathing? No 05/03/2022 Does person have difficulty doing errands alone? No 05/03/2022 Cognitive Status Response Date of Assessm ent Does person have difficulty concentrating/remembering/making decisions? No 05/03/2022 Plan of Treatment Not on file Medical Devices Explanted Type Area Mental Health Clinician Device Identifier Shelf Expiration Date Model / Serial / Lot Stent Biliary 10fr 7cm Cntr Bnd Temp Rap - [id number] Implanted:Qty: 1 on 03/01/2022 by Tam Moncada MD at [facility] Explanted:Qty: 1 on 05/03/2022 by Tam Moncada MD at [facility] N/A: Bile Duct [employer] 11/08/2023 [id number] / [id number] / [id number] Care Teams Hydrocrane Operator Relationship Specialty [place] [address] [place] [address] PCP - [facility] 02/29/24
--- OUTSIDE RECORDS SUMMARY | 2024-05-28 03:01 | XMS_ITS | CONTINUITY OF CARE DOCUMENT ---
Author Name rolanda, rolanda Address Unknown Organization [facility] Address [address] [facility] [place] [address] Phone [phone] Care Team Providers Care Program Associate Name Role Phone Sammy Sinclair MD Unavailable [phone] Charlie Leblanc MD Unavailable Charlie Leblanc MD Unavailable PROBLEMS Condition Status Date Provider Notes CKD active Jose Elias Ahmedzai Hypertension active Jose Elias Ahmedzai Hyperlipidemia active Jose Elias Ahmedzai Abnormal EKG completed - Jose Elias Ahjeremiahzai LBBB active Jose Elias Ahmedzai Preoperative cardiovascular evaluation active Jose Elias Polanco Family hx of heart disease active Jose Elias mccurdy Dyspnea on exertion--echo ef nl, mild TR, pasp 32. stress nuc nl, 02/2024 active Jose Elias Barryi ENCOUNTERS Date Type Provider Location Encounter Diag nosis - In-person encounter Office Visit Sammy Sinclair MD [facility] Dyspnea on exertion--echo ef nl, mild TR, pasp 32. stress nuc nl, 02/2024 - In-person encounter Office Visit Sammy Sinclair MD [facility] Abnormal EKGLBBBPreoperative cardiovascular evaluationFamily hx of heart diseaseDyspnea on exertion--echo ef nl, mild TR, pasp 32. stress nuc nl, 02/2024 VITAL SIGNS Date Observation Value Provider Body Mass Index (Ratio) 24.87 kg/m2 Jagdeep Sinclair MD blood pressure, diastolic 77 mm[Hg] Ka yla Ruple blood pressure, systolic 141 mm[Hg] Vickie la Ruple blood pressure, cuff size regular Ka yla Ruple oxygen saturation, oximetry 98 % [facility] pulse rate 80 /min [facility] weight E&M 136 [lb_av] [facility] height E&M 62 [in_i] [facility] Body Mass Index (Ratio) 24.87 kg/m2 Jagdeep Sinclair MD blood pressure, diastolic 81 mm[Hg] Li nkLogic blood pressure, systolic 146 mm[Hg] Radha kLogic blood pressure, diastolic 81 mm[Hg] Ka yla Ruple blood pressure, systolic 146 mm[Hg] Vickie la Ruple blood pressure, cuff size regular Ka yla Ruple oxygen saturation, oximetry 98 % [facility] pulse rate 79 /min [facility] weight E&M 136 [lb_av] Claudia Ruple height E&M 62 [in_i] Claudia Ruple HISTORY OF MEDICATION USE Medication Status Instructions Dates Provider Indications Com ments calcitriol 0.25 mcg capsule active Sammy Sinclair MD trazodone 50 mg tablet active Sammy Sinclair MD montelukast 10 mg tablet active Sammy Sinclair MD omeprazole 40 mg capsule,delayed release(DR/EC) active Sammy Sinclair MD lisinopril 10 mg tablet active Sammy Sinclair MD amlodipine 10 mg tablet active Sammy Sinclair MD citalopram 20 mg tablet active Sammy Sinclair MD alendronate 70 mg tablet active Sammy Sinclair MD atorvastatin 10 mg tablet active Sammy Sinclair MD INSURANCE PROVIDERS Payer name Policy type / Coverage type [place] red democrat ID [employer] SENIOR [employer]LEMENTAL INS Commercial insuran ce company [id number] [place] [employer] Medicare [id number] TREATMENT PLAN Date Name Performer Cardiology:This visi t has been a part of the consistent, comprehensive, and ongoing management of the chronic medical condition(s) listed above for the patient. BP today: 141/77 P rior BP: 146/81 (03/11/2024) Her updated medication list for this problem includes: Lisinopril 10 Mg Tablet (Lisinopril) Amlodipine 10 Mg Tablet (Amlodipine) Sammy Sinclair MD Cardiology: B P today: 141/77 P rior BP: 146/81 (03/11/2024) Her updated medication list for this problem includes: Lisinopril 10 Mg Tablet (Lisinopril) Amlodipine 10 Mg Tablet (Amlodipine) [facility]: H er updated medication list for this problem includes: Atorvastatin 10 Mg Tablet (Atorvastatin) [facility]: H er updated medication list for this problem includes: Lisinopril 10 Mg Tablet (Lisinopril) Amlodipine 10 Mg Tablet (Amlodipine) [facility] H er updated medication list for this problem includes: Atorvastatin 10 Mg Tablet (Atorvastatin) Orders: C omplete Echo ([id number]) S tress Regadenoson ([id number]) [facility]: O rders: C omplete Echo ([id number]) S tress Regadenoson ([id number]) [facility]: H er updated medication list for this problem includes: Lisinopril 10 Mg Tablet (Lisinopril) Amlodipine 10 Mg Tablet (Amlodipine) Orders: C omplete Echo ([id number]) S tress Regadenoson ([id number]) [facility]: H er updated medication list for this problem includes: Lisinopril 10 Mg Tablet (Lisinopril) Amlodipine 10 Mg Tablet (Amlodipine) Orders: C omplete Echo ([id number]) S tress Regadenoson ([id number]) [facility]: H er updated medication list for this problem includes: Lisinopril 10 Mg Tablet (Lisinopril) Amlodipine 10 Mg Tablet (Amlodipine) Orders: C omplete Echo ([id number]) S tress Regadenoson ([id number]) Jose Elias [facility]ashutosh Date Name Stress Regadenoson Complete Echo HISTORY OF PROCEDURES Procedure Date Procedure Name Provider Procedure Notes S tatus Complex e/m visit add on Sammy Sinclair MD completed EKG Sammy Sinclair MD completed
--- OUTSIDE RECORDS SUMMARY | 2024-05-28 03:02 | XMS_ITS | Data Portability ---
Author Organization MD - [facility] [employer], Main Office Address [address] [place] [address] Care Team Providers Care Box Worker Name Role Phone JENNY LEBLANC Primary Care Provider [phone] JENNY LEBLANC Referring Provider Assessment Encounter Date Assessment Date Assessment LastModified by Organization Details LastModified Time 06/28/2023 06/28/2023 HPI: 82 real female, who is here for evaluation of her right wrist pain. We treated her last year for a rightists radius fracture, it was treated nonsurgically per her request. She did heal with dorsal angulation of the distal radius, as well as mild moderate shortening. It was discussed with the patient about surgical options but she declined. Patient complains of pain in the wrist particularly on the ulnar side of the wrist. It is worse, but she uses it more. She noticed soreness and some swelling in this area. She is a very active individual and does almost all of her work at her home, and her yard on her own. Patient also notices that she will get numbness in the right hand when she is driving a car or if she holds the hand higher in the air. This quickly goes away once she puts the arm down. She has had carpal tunnel release done a long time ago. numbness happens two or three times a week. Physical exam: patient has a mild deformity to the right wrist. She does have relatively good range of motion of the wrist. There is some prominence at the Mcgowan aspect of the ulna head. This area is tender. No redness or warm noted. There's no numbers or tingling in the fingers today. She does have full range of motion of her fingers. She has full pronation and supination. She has mild pain with volar and dorsal motion of the wrist. 2+ radial pulse. Impression: patient has pain in the right wrist due to multiple factors. She developed ulnar plus following her distal radius fracture. 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 This is a difficult situation as there is not necessarily a good option that is going to help her dramatically I think. She is unable to take anti-inflammatori es due to chronic kidney disease. We talked about the use of Tylenol, which may be beneficial. I also recommended that she use the wrist brace that we gave her when she was recovering from the wrist fracture and use it on a very regular basis. This will take stress off the rest joint in the carpal articulations and hopefully will help improve her symptoms. if she feels that these measures do not help enough, we would refer her to a hand surgeon for possible surgical options. 20 minutes, we spent in discussion with the patient with more than half of this and [id number] conversation. [email or web address] Not available 06/28/2023 14:01:07 Plan of Treatment Reminders Order Date Submit Date Provider Last Modified By Organization Details Last Modified Time Details Appointments Any 15 2024 10:15A Alfonzo Leblanc MD Not available Not available Not available Medicare Wellness 15 2024 08:30A Alfonzo Leblanc MD Not available Not available Not available Lab lipid panel, serum [address] (Lab), [address] [place], [address], 02/13/2024 08:24:44 vitamin B12, serum [address] (Lab), [address] [place], [address], 02/13/2024 08:24:44 Referral None recorded. Procedures None recorded. Surgeries None recorded. Imaging XR, wrist, 3 or more view 2023 024 [email or web address] s[facility], [facility], [place], [address], 06/29/2023 08:48:12 Medication Orders omeprazol e 40 mg capsule,d elayed release 2023 024 [id number] [place] [address] [facility]40591, [address], [place], [place], [id number], 03/11/2024 07:19:41 citalopra m 20 mg tablet 2023 024 [id number] [place] [address] [facility] #78190, [address], [place], [place], [id number], 03/11/2024 07:19:39 atorvasta tin 10 mg tablet 2023 024 [id number] [place] [address] [facility] #52497, [address], [place], [place], [id number], 03/11/2024 07:19:[address] 10 mg tablet [address] [facility] #27933, [address], [place], [place], [id number], 09/12/2023 12:28:47 trazodone 50 mg tablet 2023 024 [facility] #61504, [address], [place], [place], [id number], 09/12/2023 11:50:13 alendrona te 70 mg tablet 2023 024 [id number] [place] [address] [facility] #17135, [address], [id number], 03/11/2024 07:19:41 lisinopri l 10 mg tablet [address] [facility] #51591, [address], [id number], 09/12/2023 12:28:47 amlodipin e 10 mg tablet 2023 024 [facility] #42475, [address], [place], [place], [id number], 09/12/2023 12:28:47 trazodone 50 mg tablet 2024 025 [facility] #82936, [address], [place], [place], [id number], 05/13/2024 11:27:51 alendrona te 70 mg tablet 2024 025 [facility] #45942, [address], [place], [place], [id number], 05/13/2024 13:04:15 Patient TargetsNo targets recorded. Patient Instructions Encounter Date Encounter Id Patient Instructions Last Modified By Organization Details Last Modified Time 09/12/2023 [id number] dementia rating scale-2* Not available 09/12/2023 11:50:06 alcohol misuse* Not available 09/12/2023 11:50:06 depression screening* [facility] Not available 09/12/2023 11:50:06 multi-dimensiona l health assessment questionnaire* [facility] Not available 09/12/2023 11:50:06 Personalized a [facility] Plan and Screening Recommendations Advance Directives - Do you have one? Yes Advance Directives - Do we have your advance directive on file in your health record? Yes Primary Prevention/Interven tion (prevents or decreases the chance of common diseases from occurring) Smoking Risk: Non Smoker Alcohol Misuse Screening: Negative Weight: Appropriate Physical activity: Nutrition: Good Fall Risk (screened today): Low Vaccines Pneumococcal: Ordered Recommended today Recommended today, but you have declined No further needed Influenza: Chronic Disease Risks Stroke: Low Risk Intermediate Risk I have no recommendations Act michelle diagnosis, Continue current treatment plan Heart Attack: Low risk Intermediate Risk I have no recommendations Act michelle diagnosis, Continue current treatment plan Clogging of the Arteries: Low risk Intermediate Risk I have no recommendations Act michelle diagnosis, Continue current treatment plan Diabetes: Low Risk I have no recommendations Secondary Prevention/Interven tion (detects treatable diseases before they may cause symptoms, disability, or ) Breast Cancer Screening with mammogram: Cervical/Uterine/Ov arley Cancer Screening: Osteoporosis Screening: Date Screening Last Performed: Colon Cancer Screening: Colonoscopy Date Screening Last Performed: __2013___ Eye Disease Screening: Dementia Risk: Low I have no recommendations Depression Screening: Negative [email or web address] Not available 09/12/2023 12:03:33 Reason for Referral None Reported. Results Created Date Observation Date Name Description Value Unit Range Abnormal Flag Note LastModifiedBy Organization Detail LastModifiedTime 03/05/2003/05/2024 LIPID PANEL cholesterol 202 mg/dL 140-19 9 high NIH WILLI NSUS RECOM MENDA TION FOR LEVI STERO L: ADULT CHILD LOW RISK: <200 <170 BORDE RLINE : <200- 239 ----- HIGH RISK: >240 >200 Not Available [facility] (Lab) [address] [place], [address], 03/05/2024 12:54:39 03/05/2003/05/2024 LIPID PANEL triglyceride s 174 mg/dL 0-150 high NIH WILLI NSUS REPOR T RECOM MENDA TION FOR TRIGL YCERI FATUMA: ADULT CHILD LOW RISK: <150 ----- BODER LINE: 150-1 99 ----- HIGH RISK: >200 ----- Not Available [facility] (Lab) [address] [place], [address], 03/05/2024 12:54:39 03/05/2003/05/2024 LIPID PANEL HDL cholesterol 50 mg/dL 40- Not Available [facility] (Lab) [address] [place], [address], 03/05/2024 12:54:39 03/05/20 24 03/05/2024 LIPID PANEL LDL cholesterol, calculated 117 mg/dL 0-130 NIH WILLI NSUS REPOR T RECOM MENDA TIONS FOR LDL: ADULT CHILD LOW RISK <130 <110 (OPTI MAL LDL) <100 ----- BORDE RLINE : 130-1 59 ----- HIGH RISK: >160 >130 A TRIGL YCERI DE RESUL T >400 INVAL IDATE S THE CALCU LATIO N FOR LDL FRACT IONAT ION - THE LDL RESUL T WILL NOT BE REPOR ROBERT. Not Available [facility] (Lab) [address] [place], [address], 03/05/2024 12:54:39 03/05/2003/05/2024 VITAM IN B12 (TELLY MELODY ) vb12 206 pg/mL 239-93 1 low Not Available [facility] (Lab) [address] [place], [address], 03/05/2024 13:22:18 03/05/20 24 03/05/2024 FOLAT E, SERUM /PLAS MA folate 15.9 NG/mL 2.76-2 0.0 Not Available [facility] (Lab) [address] [place], [address], 03/05/2024 13:22:24 03/05/20 24 03/06/2024 TSH thyroid-stim ulating hormone 0.771 uIU/m L 0.465- 4.680 Not Available [facility] (Lab) [address] [place], [address], 03/06/2024 14:26:27 06/28/19 24 XR, wrist , 3 or more view No observ ation record ed. [email or web address] [facility] [address] [facility], [place], [address], 06/28/2023 13:55:25 01/09/20 24 01/09/2024 MRI, lumba r spine , w/o contr ast No observ ation record ed. [facility] Not Available 2023 18:00:51 03/04/20 24 03/04/2024 elect josé luis diogr am No observ ation record ed. [facility] Not Available 2023 16:22:00 03/13/20 24 03/12/2024 US, echoc ardio gram, trans thora cic, compl ete, w/ color flow No observ ation record ed. Not Available 2023 08:59:28 03/13/20 24 03/12/2024 myoca rdial perfu anusha study w/ eject ion fract ion (PROC ) No observ ation record ed. [facility] Not Available 2023 18:03:58 04/16/20 24 04/16/2024 MAMMO , scree zoraida, digit al, bilat eral [facility] [address] [address] Patien t Name: KELBY CHAIDEZ IA Access ion #: [id number] Sex: F : 1940 0 Dictat ed By: Nolvia Guzmán Attend ing Physic mohan: LATONYA LEBLANC ER Orderi ng Physic mohan: LATONAY LEBLANC ER Exam Date: 2023 10:47 AM Exam Name: MG SCRN BREAST BOB BILAT Admitt ing Diagno sis(es ): PROCED URE: SCREEN ING MAMMOG FRANCHESKA WITH TOMOSY NTHESI S REASON FOR EXAM: screen ing mammog francheska COMPAR NORMAN: MG SCRN BREAST BOB BILAT on DOS: , MG SCRN BREAST BOB BILAT 3D on DOS: 2, MG SCRN BREAST BOB BILAT 3D on DOS: , SCREEN ING BREAST BOB, BILAT 3D on DOS: 0, SCREEN ING BREAST BOB, BILAT 3D on DOS: 9 TECHNI QUE: Bilate ral CC and MLO views obtain ed. Images were obtain ed using a Digita l Tomosy nthesi s Unit. Standa rd 2D and 3D Tomosy nthesi s images were review ed. This examin ation was analyz ed using Lunit Insigh t DBT/MM G, an AI softwa re develo ped to enhanc e the effect ivenes s of breast cancer screen ing with mammog jaison. FINDIN GS: BREAST COMPOS ITION: C - The breast s are hetero geneou sly dense, which may obscur e small masses . In the right breast , no asymme trical parenc hymal patter n, fariba ectura l distor tion, pleomo rphic microc alcifi cation s or masses . In the left breast , no asymme trical parenc hymal patter n, fariba ectura l distor tion, pleomo rphic microc alcifi cation s or masses . IMPRES ANUSHA: No findin gs of malign remy. Page [address] [facility] [address] [place] [address] Patien t Name: KELBY CHAIDEZ Access ion #: [id number] Sex: F : 1940 0 Dictat ed By: Nolvia Guzmán Attend ing Physic mohan: GISELA GUTIERREZ Physic mohan: LATONYA LEBLANC ER Exam Date: 2023 10:47 AM Exam Name: MG BURGER BREAST BOB BILAT Admitt ing Diagno sis(es ): RECOMM ENDATI ON: Recomm end annual mammog francheska. ASSESS MENT: BIRADS : 1 - Negati ve Electr onical ly Signed by: Nolvia Guzmán at 2023 13:05: 51 PM Page 2 [email or web address] [facility] (Imaging) [address] [place], [address], 05/08/2024 10:38:14 Result Notes None recorded. Problems Name Problem SNOMED Code Status Onset Date Resolution Date Notes Provider Name and Address Organization Details Recorded Time Pain of right wrist 17389362370 9100 Active 2022 Not Available [facility] 4 18:27:45 Closed fracture of distal end of radius 78425134 Active 2022 Not Available [facility] 4 18:27:45 Pain of right knee joint 24421155183 4100 Active 2022 Not Available [facility] 4 18:27:45 Rhinitis 75124033 Active 2022 Not Available [facility] 4 18:27:45 Acid reflux 329385570 Active 2023 Not Available [facility] 4 18:27:45 Depressiv e disorder 11429904 Active 2023 Not Available [facility] 4 18:27:45 Osteoporo sis 79884858 Active 2023 Not Available [facility] 4 18:27:45 Insomnia 610636303 Active 2023 Jenny Leblanc MD [address] [place] [address], [phone] , [facility] 4 11:49:26 Electroca rdiogram abnormal 918781003 Active 2023 Kailey Mcelroy MA null, [facility] 4 17:20:57 Vitamin B12 deficienc y (non anemic) 42964413 Active 2023 Kailey Mcelroy MA null, [facility] 4 14:34:57 Disorder of shoulder 389529461 Completed 08/28/2022 Crissy lang RMPolina null, [facility] 3 10:56:21 Gallbladd er mass 85888032844 9104 Active 2021 Not Available [facility] 4 18:27:45 Liver function tests outside reference range 272378298 Active 2019 Not Available [facility] 4 18:27:45 Mammograp hy abnormal 604747533 Active Not Available [facility] 4 18:27:45 Excessive thirst 44269410 Active Not Available [facility] 4 18:27:45 Cobalamin deficienc y 263300422 Active 2021 Not Available [facility] 4 18:27:45 Abdominal pain 11945872 Completed 202108/28/2022 Crissy Jonespolina lang, RMA null, [facility] 3 10:56:37 Gastroeso phageal reflux disease 260451068 Active Not Available [facility] 4 18:27:45 Anemia 862148479 Active 2020 Not Available [facility] 4 18:27:45 Osteopeni a 773181666 Active 2020 Not Available [facility] 4 18:27:45 Blood in urine 21544531 Completed 201908/28/2022 Crissy Luimichael lang, RMA null, [facility] 3 10:56:31 Vitamin D deficienc y 89732022 Active 2021 Not Available [facility] 4 18:27:45 Sinusitis 72774789 Active Not Available [facility] 4 18:27:45 Osteoarth ritis 622529436 Active Not Available [facility] 4 18:27:45 Anxiety 93088340 Active 2021 Not Available [facility] 4 18:27:45 Hyperlipi demia 66414211 Active Not Available [facility] 4 18:27:45 Essential hypertens ion 37820793 Active Not Available [facility] 4 18:27:45 Osteoporo sis 55176066 Completed Jenny Leblanc MD [address] [place] [address], [phone] , [facility] 4 11:26:29 Chronic kidney disease 080816706 Active 2021 Not Available [facility] 4 18:27:45 Overactiv e urinary bladder 182076068 Active 2020 Not Available [facility] 4 18:27:45 Perniciou s anemia 62698115 Active Not Available [facility] 4 18:27:45 Hiatal hernia 58865649 Active 2021 Not Available [facility] 4 18:27:45 Psoriasis 6923646 Active Not Available [facility] 4 18:27:45 Kidney disease 85114612 Active 2021 Not Available [facility] 4 18:27:45 Kidney stone 06064499 Active 2021 Not Available [facility] 4 18:27:45 Problem Notes None recorded. Procedures Surgical History Date Name Laterality Status Provider Name and Address Organization Details Recorded Time 09/12/19 24 Medicare Wellness CPT Code, subsequent completed Anabel Johnson RN [place] 09/12/2023 11:40:50 03/27/20 22 Cholecystectomy completed Not Available [facility] 06/28/2022 03:20:17 02/16/20 21 Most Recent Bone Density completed Not Available [facility] 06/28/2022 03:20:15 05/14/19 14 Date of Last Colonoscopy completed Not Available [facility] 06/28/2022 03:20:14 Carpal tunnel surgery completed Not Available [facility] 06/28/2022 03:20:17 appendectomy completed Not Available [facility] 06/28/2022 03:20:17 section completed Not Available [facility] 06/28/2022 03:20:17 Orthopedic Procedure completed Not Available [facility] 06/28/2022 03:20:17 Orthopedic Procedure completed NIRMAL Gomez [place] 01/09/2023 10:55:01 Imaging Results Imaging Date Name Status LastModified by Organization Details LastModified Time 06/28/2023 XR, wrist, 3 or more view completed [email or web address] [facility] [address], [place], [address], 06/28/2023 13:55:25 01/09/2024 MRI, lumbar spine, w/o contrast completed [facility] Information not available 01/09/2024 18:00:51 03/04/2024 electrocardiogram completed [facility] Informa tion not available 03/04/2024 16:22:00 03/12/2024 US, echocardiogram, transthoracic, complete, w/ color flow completed [facility] Information not available 03/19/2024 08:59:28 03/12/2024 myocardial perfusion study w/ ejection fraction (PROC) completed [facility] Information not available 03/13/2024 18:03:58 04/16/2024 MAMMO, screening, digital, bilateral completed [email or web address] [facility] (Imaging) [address] [place], [address], 05/08/2024 10:38:14 Procedure Notes None recorded. Medical Equipment None Reported. Allergies No known drug allergies Medications Name Sig Start Date Stop Date Status Note LastModified by Organization Details LastModified Time amoxicilli n 500 mg capsule 06/17 completed Not Available Not Available Not Available prednisone 10 mg tablet Take by oral route. take [id number], [id number], 3a4ytqf, 7i5trxw active Not Available Not Available No t Available clindamyci n HCl 300 mg capsule TAKE 1 CAPSULE BY MOUTH 4 TIMES DAILY FOR 7 DAYS active Not Available Not Available No t Available trazodone 50 mg tablet Take 1 tablet as needed by oral route at bedtime. active Not Available Not Available No t Available atorvastat in 10 mg tablet TAKE 1 TABLET BY MOUTH EVERY DAY active Not Available Not Available No t Available oxybutynin chloride ER 10 mg tablet,ext ended release 24 hr Take 1 tablet every day by oral route. active Not Available Not Available No t Available azithromyc in 250 mg tablet TAKE 2 TABLETS (500 MG) BY ORAL ROUTE ONCE DAILY FOR 1 DAY THEN 1 TABLET (250 MG) BY ORAL ROUTE ONCE DAILY FOR 4 DAYS 09/17 completed Not Available Not Available Not Available benzonatat e 200 mg capsule Take 1 capsule 3 times a day by oral route. active Not Available Not Available No t Available hydrocodon e 5 mg-acetami nophen 325 mg tablet TAKE 1 TABLET BY MOUTH EVERY 4 HOURS 11/30 completed Not Available Not Available Not Available Ceftin 250 mg tablet Take 1 tablet every 12 hours by oral route. 10/06 completed Not Available Not Available Not Available alendronat e 70 mg tablet Take 1 tablet every week by oral route. active Not Available Not Available No t Available ciprofloxa aren 250 mg tablet Take 1 tablet every 12 hours by oral route for 5 days. 07/21 completed Not Available Not Available Not Available ciprofloxa aren 500 mg tablet 04/11 completed Not Available Not Available Not Available sulfametho xazole 800 mg-trimeth oprim 160 mg tablet TAKE 1 TABLET BY MOUTH EVERY 12 HOURS 11/04 completed Not Available Not Available Not Available omeprazole 40 mg capsule,de layed release TAKE 1 CAPSULE BY MOUTH EVERY DAY active Not Available Not Available No t Available amoxicilli n 500 mg tablet Take 1 tablet 3 times a day by oral route. 06/17 completed Not Available Not Available Not Available meloxicam 7.5 mg tablet TAKE ONE TABLET BY MOUTH TWICE DAILY active Not Available Not Available No t Available oxycodone- acetaminop hen 5 mg-325 mg tablet TAKE 1 TABLET BY MOUTH EVERY 4 TO 6 HOURS NEEDED 11/02 completed Not Available Not Available Not Available citalopram 20 mg tablet TAKE 1 TABLET BY MOUTH EVERY DAY active Not Available Not Available No t Available Kenalog 10 mg/mL suspension for injection in office 05/15 completed [facility]: 0003-04 94-20 Not Available Not Available Not Available amlodipine 10 mg tablet TAKE 1 TABLET EVERY DAY active Not Available Not Available No t Available cephalexin 500 mg capsule TAKE 1 CAPSULE BY MOUTH EVERY 6 HOURS 11/30 completed Not Available Not Available Not Available cyanocobal ray (vit B-12) 1,000 mcg/mL injection solution Inject 1 mL every month by intramus cular route as directed for 30 days. 2023 active [facility] #[id number] ABN signed / ds #4 of 4 Not Available Not Available Not Available lisinopril 10 mg tablet TAKE 1 TABLET EVERY DAY (STOP LISINOPR IL/HCTZ) active Not Available Not Available No t Available diclofenac sodium 75 mg tablet,del ayed release TAKE 1 TABLET TWICE DAILY 12/06 completed Not Available Not Available Not Available cephalexin 500 mg tablet Take 1 tablet every 6 hours by oral route. 06/03 completed Not Available Not Available Not Available montelukas t 10 mg tablet TAKE 1 TABLET BY MOUTH EVERY DAY active Not Available Not Available No t Available desonide 0.05 % lotion APPLY SPARINGL Y AND RUB GENTLY INTO THE AFFECTED AREA(S) BY TOPICAL ROUTE 2 TIMES PER DAY 09/06 completed Not Available Not Available Not Available diclofenac sodium 50 mg tablet,del ayed release active Not Available Not Available Not Available ergocalcif wanda (vitamin D2) 1,250 mcg (50,000 unit) capsule TAKE 1 CAPSULE BY MOUTH ONCE EVERY MONTH active Not Available Not Available No t Available azelastine 137 mcg (0.1 %) nasal spray Stout 2 sprays twice a day by intranas al route. 09/06 completed Not Available Not Available Not Available lisinopril 10 mg-hydroch lorothiazi de 12.5 mg tablet TAKE 1 TABLET EVERY DAY 08/04 completed Not Available Not Available Not Available methylpred nisolone 4 mg tablets in a dose pack uud 05/13 completed Not Available Not Available Not Available fluticason e propionate 50 mcg/actuat ion nasal spray,susp ension Stout 2 sprays every day by intranas al route. active Not Available Not Available No t Available calcitriol 0.25 mcg capsule TAKE 1 CAPSULE BY MOUTH EVERY OTHER DAY active Not Available Not Available No t Available B-12 1,000 mcg tablet Take by oral route. 03/02 completed Not Available Not Available Not Available aspirin not every day 11/08 completed Not Available Not Available Not Available lidocaine (PF) 10 mg/mL (1 %) injection solution In office injectio n administ ered by the provider 08/03 completed [facility]: 0409-42 76-17 Not Available Not Available Not Available GaviLyte-N 420 gram oral solution active Not Available Not Available Not Available Prolia 60 mg/mL subcutaneo us syringe Inject 1 mL by subcutan eous route. 10/11 completed Not Available Not Available Not Available ropivacain e (PF) 5 mg/mL (0.5 %) injection solution in office 05/15 completed [facility] 54287-9 64-01 Not Available Not Available Not Available cyanocobal ray (vit B-12) 1,000 mcg/mL injection kit 1 ml monthly active Not Available Not Available No t Available Fluzone High-Dose 2019-20 (PF) 180 mcg/0.5 mL intramuscu lar syringe PHARMACI ST ADMINIST ERED IMMUNIZA TION ADMINIST ERED AT TIME OF DISPENSI NG 03/05 completed Not Available Not Available Not Available Fluzone High-Dose Quad 2020-21 (PF) 240 mcg/0.7 mL IM syringe PHARMACI ST ADMINIST ERED IMMUNIZA TION ADMINIST ERED AT TIME OF DISPENSI NG 03/02 completed Not Available Not Available Not Available BinaxNOW COVID-19 Ag Self Test kit Use as Directed on the Package 01/10 completed Not Available Not Available Not Available Vitals Date Recorded Body height Body mass index (BMI) Body weight Body temperature Heart rate Oxygen saturation Oxygen saturation in Arterial blood by Pulse oximetry Systolic blood pressure Diastolic blood pressure Provider Name and Address Organization Details Last Updated DateTime 4 158.12 cm 23.4 kg/m2 45820.4 2 g 97.4 [degF] 87 /min 96 % 96 % 130 mm[Hg] 70 mm[Hg] Crissy koo [facility] Guang Lian Shi Dai 4 11:08:44 Date Recorded Body height Provider Name an d Address Organization Details Last Updated DateTime 06/28/2023 158.12 cm Malena Dove [facility] [employer] [facility] 06/28/2023 12:29:57 Date Recorded Body height Body mass index (BMI) Body weight Body temperature Heart rate Oxygen saturation Oxygen saturation in Arterial blood by Pulse oximetry Systolic blood pressure Diastolic blood pressure Provider Name and Address Organization Details Last Updated DateTime 4 158.12 cm 24.5 kg/m2 86637.2 5 g 98.4 [degF] 74 /min 99 % 99 % 126 mm[Hg] 74 mm[Hg] Haritha Cortes [facility] [employer] [facility] 4 11:26:15 Date Recorded Body height Body mass index (BMI) Body weight Body temperature Heart rate Oxygen saturation Oxygen saturation in Arterial blood by Pulse oximetry Systolic blood pressure Diastolic blood pressure Provider Name and Address Organization Details Last Updated DateTime 4 158.12 cm 24.3 kg/m2 48951.3 g 99.4 [degF] 74 /min 98 % 98 % 122 mm[Hg] 72 mm[Hg] Christiana Sterling [facility] Guang Lian Shi Dai 4 10:43:23 Date Recorded Body weight Body mass index (BMI) Body height Body temperature Heart rate Oxygen saturation Oxygen saturation in Arterial blood by Pulse oximetry Systolic blood pressure Diastolic blood pressure Provider Name and Address Organization Details Last Updated DateTime 5 64512.1 5 g 24.9 kg/m2 158.12 cm 97.6 [degF] 92 /min 97 % 97 % 120 mm[Hg] 70 mm[Hg] NIRMAL Are[facility] Guang Lian Shi Dai 5 10:52:21 Social History Question Answer Notes LastModified by Organizat ion Details LastModified Time Tobacco Smoking Status Never Smoker Not Available [employer] 06/28/2022 03:06:34 Do You Have An Advance Directive? Yes MIGRATION.50404 75833 Information not available 06/28/2022 What Is Your Level Of Alcohol Consumption? None MIGRATION.54719 24019 Information not available 06/28/2022 Are You Blind Or Do You Have Difficulty Seeing? No MIGRATION.00409 75480 Information not available 06/28/2022 What Is Your Level Of Caffeine Consumption? Moderate MIGRATION.38387 57228 Information not available 06/28/2022 How Much Tobacco Do You Chew? None MIGRATION.27688 85518 Information not available 06/28/2022 In The 14 Days Before Symptom Onset, Have You Had Close Contact With A Laboratory-confir med COVID-19 While That Case Was Ill? No MIGRATION.94548 43691 Information not available 06/28/2022 In The 14 Days Before Symptom Onset, Have You Had Close Contact With A Person Who Is Under Investigation For COVID-19 While That Person Was Ill? No MIGRATION.18550 79395 Information not available 06/28/2022 Are You Deaf Or Do You Have Serious Difficulty Hearing? No MIGRATION.76697 46113 Information not available 06/28/2022 What Type Of Diet Are You Following? REGULAR MIGRATION.12276 19200 Information not available 06/28/2022 Which Illicit Or Recreational Drugs Have You Used? None MIGRATION.53939 81813 Information not available 06/28/2022 What Is The Highest Grade Or Level Of School You Have Completed Or The Highest Degree You Have Received? [id number] MIGRATION.21122 05122 Information not available 06/28/2022 What Is Your Occupation? Retired MIGRATION.04406 24302 Information not available 06/28/2022 Have There Been Any Changes To Your Family Or Social Situation? No MIGRATION.50215 35730 Information not available 06/28/2022 What Is The Fluoride Status Of Your Home? Unknown MIGRATION.38264 21428 Information not available 06/28/2022 Are There Any Guns Present In Your Home? Yes MIGRATION.71036 69014 Information not available 06/28/2022 Do You Use Insect Repellent Routinely? No MIGRATION.19093 06657 Information not available 06/28/2022 Where Do You Live? [place]LevelHouse MIGRATION.09702 21918 Information not available 06/28/2022 Guns Present In The Home? Yes [email or web address] Information not available 09/12/2023 Are You Able To Care For Yourself? Yes [email or web address] Information not available 09/12/2023 Are You Blind Or Do Yo Have Difficulty Seeing? No [email or web address] Information not available 09/12/2023 Are You Deaf Or Do You Have Serious Difficulty Hearing? No [email or web address] Information not available 09/12/2023 Live Alone Of With Others? Alone Information not available 09/12/2023 Do You Have A Medical Power Of Community Engagement Coordinator? Yes MIGRATION.61744 01255 Information not available 06/28/2022 What Was The Date Of Your Most Recent Tobacco Screening? 09/12/2023 [email or web address] Information not available 09/12/2023 Do You Have Any Pets? No MIGRATION.32563 30510 Information not available 06/28/2022 What Is Your Relationship Status? MIGRATION.77557 53034 Information not available 06/28/2022 Do You Use Your Seat Belt Or Car Seat Routinely? Yes MIGRATION.51730 28135 Information not available 06/28/2022 Do You Have Smoke And Carbon Monoxide Detectors In Your Home? Yes MIGRATION.82643 31696 Information not available 06/28/2022 Are You Passively Exposed To Smoke? No MIGRATION.83448 90196 Information not available 06/28/2022 Are There Any Smokers In Your House? No MIGRATION.85860 28768 Information not available 06/28/2022 Do You Feel Stressed (tense, Restless, Nervous, Or Anxious, Or Unable To Sleep At Night)? [id number] MIGRATION.20876 75585 Information not available 06/28/2022 Do You Use Any Illicit Or Recreational Drugs? No MIGRATION.18062 87315 Information not available 06/28/2022 Do You Use Sunscreen Routinely? No MIGRATION.77723 21662 Information not available 06/28/2022 Have You Recently Traveled Abroad? No MIGRATION.51864 89327 Information not available 06/28/2022 Do You Have Any Dietary Restrictions? No MIGRATION.99938 34263 Information not available 06/28/2022 Do You Or Have You Ever Used Any Other Forms Of Tobacco Or Nicotine? No MIGRATION.41777 56598 Information not available 06/28/2022 Sex: Female Functional Status Question Answer Note LastModified by Organizat ion Details LastModified Time Do you have difficulty walking or climbing stairs? No MIGRATION.2362318 026 Information not available 06/28/2022 Do you have transportation difficulties? No MIGRATION.7892880 026 Information not available 06/28/2022 Are you able to walk? YESWOREST MIGRATION.8541004 026 Information not available 06/28/2022 Do you have difficulty doing errands alone? No MIGRATION.5963477 026 Information not available 06/28/2022 Are you able to care for yourself? Yes MIGRATION.4014178 026 Information not available 06/28/2022 Do you have difficulty dressing or bathing? No MIGRATION.7340488 026 Information not available 06/28/2022 What is your exercise level? Moderate [email or web address] Information not available 09/12/2023 Mental Status Question Answer Note LastModified by Organizat ion Details LastModified Time Do you have difficulty concentrating, remembering or making decisions? No MIGRATION.052797035 6 Information not available 06/28/2022 Family History Relationship Description Onset Age of this Age Resolved Age Notes LastModified by Organization Details LastModified Time Father Heart disease MIGRATION.777 [id number] Not available 06/28/2022 03:20:19 Brother Heart disease MIGRATION.712 [id number] Not available 06/28/2022 03:20:20 Brother Essential hypertension MIGRATION.916 0001289 Not available 06/28/2022 03:20:20 Brother Diabetes mellitus MIGRATION.177 [id number] Not available 06/28/2022 03:20:20 Brother Malignant neoplastic disease Colon MIGRATION.300 [id number] Not available 06/28/2022 03:20:20 Brother Depressive disorder MIGRATION.197 [id number] Not available 06/28/2022 03:20:20 Mother Essential hypertension MIGRATION.643 [id number] Not available 06/28/2022 03:20:20 Mother Malignant neoplastic disease Colon MIGRATION.638 0200928 Not available 06/28/2022 03:20:20 Mother Depressive disorder MIGRATION.576 [id number] Not available 06/28/2022 03:20:20 Son Heart disease 39 MIGRATION.180 5072602 Not available 06/28/2022 03:20:20 Medical History No medical history recorded. Gynecological History Statement/Question Response Date of Last Mammogram 02/28/2022 Date of Last Colonoscopy 05/14/2013 Most Recent Bone Density 02/15/2021 Obstetrics History GPAL:G 0 P 0 0 0 0 Immunizations Vaccine Type Date Status Note Provider Nam e and Address Organization Details Recorded Time Influenza, split virus, trivalent, preservative 3 completed Not Available [facility] 06/18/2023 18:27:46 COVID-19, mRNA, LNP-S, PF, 100 mcg/0.5mL dose or 50 mcg/0.25mL dose 1 completed Not Available [facility] 06/18/2023 18:27:46 Influenza, split virus, quadrivalent, preservative 1 completed Not Available [facility] 06/18/2023 18:27:46 SARS-COV-2 (COVID-19) vaccine, UNSPECIFIED 1 completed Not Available [facility] 06/18/2023 18:27:46 SARS-COV-2 (COVID-19) vaccine, UNSPECIFIED 1 completed Not Available [facility] 06/18/2023 18:27:46 Influenza, high-dose, quadrivalent, PF 0 completed Not Available [facility] 06/18/2023 18:27:46 Influenza, split virus, quadrivalent, preservative 7 completed [facility] Available [facility] 06/18/[facility]23 18:27:46 Influenza, high-dose, trivalent, PF 6 completed Not Available [facility] 06/18/2023 18:27:46 Influenza, high-dose, trivalent, PF 5 completed Not Available [facility] 06/18/2023 18:27:46 Influenza, high-dose, trivalent, PF 9 completed Not Available [facility] 06/18/2023 18:27:46 Influenza, high-dose, trivalent, PF 4 completed Not Available [facility] 06/18/2023 18:27:46 pneumococcal polysaccharide PPV23 8 completed Not Available [facility] 06/18/2023 18:27:46 Pneumococcal conjugate PCV 13 6 completed Not Available [facility] 06/18/2023 18:27:46 Past Encounters Encounter ID Performer Location Encounter Start Date Encounter Closed Date Diagnosis/Indication Diagnosis SNOMED-CT Code Diagnosis ICD10 Code Diagnosis Note [id number] [facility] [address] [facility] [place] [address] 08/03/2020 00:00:00 08/03/2020 12:15:59 [id number] [facility] [address] [address] 11/04/2020 00:00:00 11/04/2020 11:01:45 [id number] [facility] [address] [place] [address] 11/08/2020 00:00:00 11/08/2020 10:24:07 [id number] [facility] [place] [address] [facility] [address] [place] [address] 11/26/2020 00:00:00 11/26/2020 11:55:47 [id number] [facility] [address] [place] [address] 11/30/2020 00:00:00 11/30/2020 14:11:11 [id number] [facility] [place] [address] [facility] [place] [address] 04/05/2021 00:00:00 04/05/2021 11:18:33 [id number] [facility] [place] [address] [facility] [place] [address] 08/04/2021 00:00:00 08/04/2021 12:35:40 [id number] [facility] [place] [address] [facility] [place] [address] 12/06/2021 00:00:00 12/06/2021 10:37:02 [id number] [facility] [place] [address] [facility] [place] [address] 01/10/2022 00:00:00 01/10/2022 15:53:52 [id number] [facility] [address] [address] 01/26/2022 00:00:00 01/26/2022 15:44:57 [id number] [facility] [address] [address] 03/07/2022 00:00:00 03/07/2022 15:08:30 [id number] [facility] [address] [address] 04/04/2022 00:00:00 04/04/2022 12:40:24 [id number] [facility] [address] [place] [address] 04/10/2022 00:00:00 04/10/2022 13:15:23 [id number] Jenyn Leblanc MD [facility] [place] [address] [facility] [place] [address] 08/28/2022 10:48:06 08/28/2022 11:44:03 Essential hypertension 21711157 I10 under control Anemia 478896809 D64.9 mild and stable Gastroesop hageal reflux disease 903349989 K21.9 better with meds Hyperlipidemia 09449074 E78.5 under control Osteoarthritis 137314226 M19.90 avoid NSAIDS Overactive urinary bladder 924519738 N32.81 meds did not help Psoriasis 5230675 L40.9 meds PRN Kidney disease 63038370 N08 seeing nephrology , GFR improving, drinking water Cobalamin deficiency 190 645282 E53.8 Not on shots Vitamin D deficiency 347 32068 E55.9 on otc Kidney stone 11438121 N2 0.0 Osteopenia 667069023 M85 .80 on ca/vit d Adult heal th examination 842972230 Z00.00 Colonoscop y- 05/14/2013 , polyp, due but does not want any moreMammog francheska- 03/21, no moreDEXA- ne umovax- 04/09/2018 Prevnar 13- 04/11/2016 FLU- 12/2021 Anxiety 42401373 F41.9 better with meds [id number] Iggy Donohue MD [place] [address] 08/31/2022 15:20:37 08/31/2022 16:46:22 Pain of right wrist 3069666741 43618 M25.531 [id number] Iggy Donohue MD [place] [address] 09/07/2022 12:19:51 09/07/2022 13:35:42 Closed fracture of distal end of radius 82239286 S52.501D [id number] CRISTINA Flores [facility] [address] [facility] [address] [place] [address] 10/09/2022 14:35:07 10/09/2022 16:10:04 Closed fracture of distal end of radius 08478605 S52.501D [id number] Iggy Donohue MD [address] [address] 11/02/2022 09:53:22 11/02/2022 10:50:26 Pain of right wrist 4451513752 20068 M25.531 [id number] Iggy Donohue MD [address] [address] 11/09/2022 09:43:19 11/13/2022 09:46:20 Pain of right knee joint 4148045213 95465 M25.219 [id number] Jenny Leblanc MD [facility] [address] [place] [address] 01/09/2023 10:48:27 01/09/2023 11:30:06 Essential hypertension 34962606 I10 under control Anemia 707886255 D64.9 stable Gastroesop hageal reflux disease 036614549 K21.9 better with meds Hyperlipidemia 69050392 E78.5 under control Osteoarthritis 045868639 M19.90 avoid NSAIDS Osteopenia 509204060 M85 .80 on ca/vit d, start meds Overactive urinary bladder 540347092 N32.81 meds did not help Psoriasis 8021216 L40.9 meds PRN Kidney stone 68359741 N2 0.0 no recurrence Anxiety 24792319 F41.9 better with meds Cobalamin deficiency 190 494358 E53.8 Not on shots Vitamin D deficiency 347 43561 E55.9 on otc Kidney disease 08389354 N08 seeing nephrology , GFR improving, Adult heal th examination 550069079 Z00.00 Colonoscop y- 05/14/2013 , polyp, due but does not want any moreMammog francheska- 03/21, no moreDEXA- ne umovax- 04/09/2018 Prevnar 13- 04/11/2016 FLU- 12/2021 Postmenopausal state 764 86378 Z78.0 Rhinitis 35123087 J00 zyrtec [id number] Jenny Leblanc MD [facility] Internal Med [facility] [address] [facility] [place] [address] 05/15/2023 10:45:39 05/15/2023 11:30:01 Essential hypertension 33955095 I10 under control Anemia 307299925 D64.9 stable Gastroesop hageal reflux disease 855806248 K21.9 better with meds Hyperlipidemia 85758061 E78.5 under control Osteoarthritis 920665344 M19.90 avoid NSAIDS, tylenol Overactive urinary bladder 131332233 N32.81 meds did not help Psoriasis 5237077 L40.9 meds PRN Kidney stone 77208710 N2 0.0 no recurrence Anxiety 88763148 F41.9 better with meds Cobalamin deficiency 190 264149 E53.8 Not on shots, labs next time Vitamin D deficiency 347 45990 E55.9 on otc Kidney disease 60750548 N08 seeing nephrology , GFR stable Adult heal th examination 639291538 Z00.00 Colonoscop y- 05/14/2013 , polyp, due but does not want any moreMammog francheska- 03/20/23DE XA- 02/19/23Pn eumovax- 04/09/2018 Prevnar 13- 04/11/2016 FLU- [facility]- up to date Rhinitis 29463822 J00 zyrtec Depressive disorder 3548 9007 F32.A under control Acid reflux 453423866 K2 1.9 better with meds Osteoporosis 63440544 M8 1.0 on meds [id number] CRISTINA Flores [facility] [address] [address] 06/28/2023 12:19:38 06/28/2023 14:06:53 Pain of right wrist 2105105912 76165 M25.334 [id number] Jenny Leblanc MD [facility] [address] [place] [address] 09/12/2023 11:19:32 09/12/2023 11:53:38 Essential hypertension 70230855 I10 under control Anemia 315187523 D64.9 stable Gastroesop hageal reflux disease 262513679 K21.9 better with meds Hyperlipidemia 71333882 E78.5 under control with meds Osteoarthritis 636467268 M19.90 avoid NSAIDS, tylenol arthritis Overactive urinary bladder 539760352 N32.81 meds did not help Psoriasis 6106479 L40.9 meds PRN Kidney stone 75000291 N2 0.0 no recurrence Anxiety 32788155 F41.9 better with meds Cobalamin deficiency 190 150293 E53.8 Not on shots, labs next time Vitamin D deficiency 347 03016 E55.9 on otc Kidney disease 16926661 N08 GFR stable Adult heal th examination 977278884 Z00.00 Colonoscop y- 05/14/2013 , polyp, due but does not want any moreMammog francheska- 03/20/23DE XA- 02/19/23Pn eumovax- 04/09/2018 Prevnar 04/11/201602/2023 [facility]- up to date Rhinitis 00825377 J00 zyrtec Depressive disorder 3548 9007 F32.A under control Acid reflux 230004216 K2 1.9 better with meds Osteoporosis 92043432 M8 1.0 on meds Osteopenia 758703989 M85 .80 on ca/vit d, start meds Screening for disorder 962518528 Z13.9 Insomnia 862699639 G47.0 0 start Trazodone [id number] Jenny Leblanc MD [facility] [address] [place] [address] 01/14/2024 10:33:22 01/14/2024 11:07:27 Essential hypertension 60264367 I10 under control Anemia 267536571 D64.9 stable Gastroesop hageal reflux disease 974077616 K21.9 better with meds Hyperlipidemia 76965618 E78.5 under control Osteoarthritis 463782638 M19.90 avoid NSAIDS, tylenol Overactive urinary bladder 533692182 N32.81 meds did not help Psoriasis 9211296 L40.9 meds PRN Kidney stone 88991336 N2 0.0 no recurrence Anxiety 83163881 F41.9 better with meds Cobalamin deficiency 190 099298 E53.8 Not on shots, Vitamin D deficiency 347 05731 E55.9 on otc Kidney disease 97672949 N08 GFR stable Adult heal th examination 122226518 Z00.00 Colonoscop y- 05/14/2013 , polyp, due but does not want any moreMammog francheska- 03/20/23DE XA- 02/19/23Pn eumovax- 04/09/2018 Prevnar 04/11/201602/2023 [facility] up to date Rhinitis 13771305 J00 zyrtec Depressive disorder 3548 9007 F32.A under control Osteoporosis 85442548 M8 1.0 on meds Insomnia 278472883 G47.0 0 Trazodone helps [id number] Jenny Leblanc MD [facility] [address] [place] [address] 05/13/2024 10:44:19 05/13/2024 11:29:27 Essential hypertension 56846342 I10 under control Anemia 531680039 D64.9 MILD Gastroesop hageal reflux disease 453943184 K21.9 better with meds Hyperlipidemia 94257813 E78.5 under control Osteoarthritis 076019617 M19.90 avoid NSAIDS, tylenol Overactive urinary bladder 952591986 N32.81 meds did not help Psoriasis 7455988 L40.9 meds PRN Kidney stone 64685523 N2 0.0 no recurrence Anxiety 92666013 F41.9 better with meds Cobalamin deficiency 190 463440 E53.8 on shots, Vitamin D deficiency 347 94694 E55.9 on otc Kidney disease 44428302 N08 GFR improving Adult heal th examination 847047315 Z00.00 Colonoscop y- 05/14/2013 , polyp, due but does not want any moreMammog francheska- 04/16/2024 DEXA- 02/19/23Pn eumovax- 04/09/2018 Prevnar 13- 04/11/2016 [facility] Rhinitis 28071686 J00 zyrtec Depressive disorder 3548 9007 F32.A under control Osteoporosis 73258106 M8 1.0 on meds Insomnia 250813300 G47.0 0 Trazodone helps Osteopenia 912590269 M85 .80 on ca/vit d, Health Concerns Section Related Observation LastModified by Organization Detai ls LastModified Time None Recorded Concern Status LastModified by Organization Details LastModified Time None Recorded Advance Directives Directive Y: Payers Encounter Date Sequence Insurance Name Policy Number Policy De Leon Covered Member ID De Leon Member ID Guarantor Name 05/15/2023 1 [place] Ashley S Dm [id number] Ashley S Dm 05/15/2023 2 [employer] (MEDICARE SUPPLEMENT) Ashley S Dm [id number] Ashley S Dm 06/28/2023 1 [place] Ashley S Dm [id number] Ashley S Dm 06/28/2023 2 [employer] (MEDICARE SUPPLEMENT) Ashley S Dm [id number] Ashley S Dm 09/12/2023 1 [place] Ashley S Dm [id number] Ashley S Dm 09/12/2023 2 [employer] (MEDICARE SUPPLEMENT) Ashley S Dm [id number] Ashley S Dm 01/14/2024 1 [place] Ashley S Dm [id number] Ashley S Dm 01/14/2024 2 [employer] (MEDICARE SUPPLEMENT) Ashley S Dm [id number] Ashley S Dm 05/13/2024 1 [place] Ashley S Dm [id number] Ashley S Dm 05/13/2024 2 [employer] (MEDICARE SUPPLEMENT) Ashley S Dm [id number] Ashley S Dm Notes Date Note Type Note Provider Name and Address Organization Details Recorded Time 05/15/2023 text/html Pt is here today for her routine follow up, compliant with her medications. Anxiety- mood and anxiety under control, sleeps fineMeds- Citalopram 20 mg daily Hypertension- on meds, under control ,Meds- Lisinopril 10 mg , Amlodipine 10mg daily Hyperlipidemia- stable, labs 11/19Meds- Atorvastatin 10 mg daily Osteoarthritis- not on NSAIDS due to kidney disease, try tylenolKidneys disease- GFR improving , now 47 (01/2023), Dr manciniOveractive bladder- tried meds without help, has nocturia and has to wake up many times at night, Pernicious anemia- not on shots any more, high B12 levels, NO need to take otc, GERD- meds helpMeds- Omeprazole 40 mg dailyOsteoporosis- dexa 02/19, on ca with vit d , had wrist fx ,Meds- AlendronateKidney stone- no more latelycholecystitis/GB stone- s/p lap levi, has CBD STENT, removed 02/2022 Psoriasis- no flare Jenyn Leblanc MD [address] [facility], [place], [address], [place] [employer] 05/15/2023 11:30:07 09/12/2023 text/html Pt is here today for her routine follow up, compliant with her medications. Also has been having a lot of Bilateral hip and lower back pain, Has been taking OTC Tylenol but some time that does not helpAnxiety- mood and anxiety under control, Has not been sleeping very goodMeds- Citalopram 20 mg daily Hypertension- on meds, under control ,Meds- Lisinopril 10 mg , Amlodipine 10mg daily Hyperlipidemia- stable,Meds- Atorvastatin 10 mg daily Osteoarthritis- not on NSAIDS due to kidney disease, try tylenolKidneys disease- GFR improving , Dr mancini, GFR 46Overactive bladder- tried meds without help, has nocturia Pernicious anemia- not on shots any more, high B12 levels, NO need to take otc, GERD- meds helpMeds- Omeprazole 40 mg dailyOsteoporosis- dexa 02/19, on ca with vit d , had wrist fx in the pastMeds- Alendronate once a weekKidney stone- no more latelycholecystitis/GB stone- s/p lap levi, has CBD STENT, removed 02/2022 Psoriasis- no flare Jenny Leblanc MD [address] [facility], [place], [address], [employer] [facility] [employer] 09/12/2023 12:51:22 01/14/2024 text/html Pt is here today for her routine follow up, compliant with her medications. Anxiety- mood and anxiety under control, sleeps fineMeds- Citalopram 20 mg daily Hypertension- on meds, under control ,Meds- Lisinopril 10 mg , Amlodipine 10mg daily Hyperlipidemia- stable, labs dueMeds- Atorvastatin 10 mg daily Osteoarthritis- not on NSAIDS due to kidney disease, on tylenolKidneys disease- GFR improving , now 49Overactive bladder- tried meds without help, has nocturia and has to wake up many times at night, Pernicious anemia- not on shots any more, high B12 levels, NO need to take otc, GERD- meds helpMeds- Omeprazole 40 mg dailyOsteoporosis- dexa 02/19, on ca with vit d , had wrist fx ,Meds- AlendronateKidney stone- no more latelycholecystitis/GB stone- s/p lap levi, has CBD STENT, removed 02/2022 Psoriasis- no flare Jenny Leblanc MD [address], [place], [address], [place] 01/14/2024 11:07:03 05/13/2024 text/html Pt is here today for her routine follow up, compliant with her medications. BACK PAIN, GETTING SPINE SURGERY NEXT MONTH, CLEARED BY CARDIOLOGY, HAD ECH AND STRESS TEST Anxiety- mood and anxiety under control, sleeps fineMeds- Citalopram 20 mg daily Hypertension- on meds, under control ,Meds- Lisinopril 10 mg , Amlodipine 10mg daily Hyperlipidemia- stable, labs goodMeds- Atorvastatin 10 mg daily Osteoarthritis- not on NSAIDS due to kidney disease, on tylenolKidneys disease- GFR improving , now 46 (12/06/23), seeing nephrology dr manciniOveractive bladder- tried meds without help, has nocturia and has to wake up many times at night, Pernicious anemia- on shots again, Hb 11.3 GERD- meds helpMeds- Omeprazole 40 mg daily Insomnia- Takes Trazodone but does not always help.Osteoporosis- dexa 02/19, on ca with vit d , had wrist fx ,Meds- AlendronateKidney stone- no more latelycholecystitis/GB stone- s/p lap levi, has CBD STENT, removed 02/2022 Psoriasis- no flare Jenny Leblanc MD [address], [place], [address], [place] 05/13/2024 11:28:15 OBGyn Episode No OBEpisode recorded.
--- OUTSIDE RECORDS SUMMARY | 2024-05-28 03:02 | XMS_ITS ---
Author Organization [facility] Address [address] [place] [address] Care Team Providers Care Manager Desktop Name Role Phone Rm Sinclair Unavailable [phone] MEDICATIONS Medication SIG (Take, Route, Frequency, Duration) Notes Start Date End Date Status Calcitriol 0.25 MCG TAKE 1 CASULE BY AYAZ TH EVERY OTHER DAY for 180 Active Ergocalciferol 1.25 MG (98799 UT) 1 capsule Orally Once a week for 90 day(s) 11/06/2023 2024 Active Encounters Encounter Location Date Provider Diagnosis Pete Barreto [address] [place] [address] 11/06/2023 Vale Sinclair PLAN OF TREATMENT Medication Medication Name Sig Start Date Stop Date Notes Calcitriol 0.25 MCG TAKE 1 CASULE BY AYAZ TH EVERY OTHER DAY for 180 Ergocalciferol 1.25 MG (5000 0 UT) 1 capsule Orally Once a week for 90 day(s) 11/06/2023 2024 Next Appt Details Provider Name:Rm Yahir , 06/11/2024 02:00:00 PM, [address] [facility] [address], [place], [address], Progress Notes * LUKAS CAPPSDOB: 3 (83 yo F)Acc No.[id number]:11/06/2023 Patient:??LUKAS CAPPS :1940?Age:83 Y?Sex:Fe male Address:[address] [place] [address] * Refills?? Refill Calcitriol Capsule, 0.25 MCG, 90 Capsule, TAKE 1 CASULE BY MOUTH EVERY OTHER DAY, 180, Refills=0 Start Ergocalciferol Capsule, 1.25 MG (67537 UT), Orally, 13, 1 capsule, Once a week, 90 day(s), Refills=2 * true * Date:??
--- OUTSIDE RECORDS SUMMARY | 2024-05-28 03:02 | XMS_ITS ---
Author Organization [facility] Address [address] [place] [address] Care Team Providers Care Intraoperative Neuro Tech Name Role Phone Rm Sinclair Unavailable [phone] MEDICATIONS Medication SIG (Take, Route, Frequency, Duration) Notes Start Date End Date Status Diclofenac Sodium 75 MG 1 tablet as [...] TH EVERY OTHER DAY for 180 Active Atorvastatin Calcium 10 MG 1 tablet Oral ly Once a day Active Ergocalciferol 1.25 MG (14310 UT) 1 capsule Orally Once a week for 90 day(s) 11/06/2023 2024 Active Vitamin D (Ergocalciferol) 1.25 MG (56433 UT) TAKE 1 CAPSULE BY MOUTH 1 TIME A MONTH for 90 Active Calcium 600 MG 1 tablet with meals Orally Twice a day Active Citalopram Hydrobromide 20 MG 1 tablet Orally Once a day Active Encounters Encounter Location Date Provider Diagnosis [facility] [address] [facility] [address] [place] [address] 03/14/2024 Rm Sinclair Chronic kidney disease, stage 3a N18.31 ; Essential hypertension I10 ; Anxiety disorder, unspecified F41.9 and Gastro-esophageal reflux disease with esophagitis, without bleeding K21.00 ASSESSMENTS Encounter Date Diagnosis Assessment Notes Treatment Notes Treatment Clinical Notes Section Notes 03/14/2024 Chronic kidney disease, stage 3a (ICD-10 - N18.31) 03/14/2024 Essential hypertension (ICD-10 - I10) 03/14/2024 Anxiety disorder, unspecified (ICD-10 - F41.9) 03/14/2024 Gastro-esophageal reflux disease with esophagitis, without bleeding (ICD-10 - K21.00) PLAN OF TREATMENT Next Appt Details Provider Name:Rm Sinclair , 06/11/2024 02:00:00 PM, [address] [facility] [address], [address], Progress Notes * LUKAS CAPPSDOB: 3 (83 yo F)Acc No.[id number]:03/14/2024 Progress Notes Patient:??LUKAS CAPPS Provider:??MD ELIZABETH, F.A.C.P, F.A.S .N. :1940?Age:83 Y?Sex:Fe male Date:03/14/2024 Address:[address] [place] [address] Subjective: * Chief Complaints: * ? * [...] OTHER DAY , Taking Ergocalciferol 1.25 MG (92486 UT) Capsule 1 capsule Orally Once a week , stop date 2024, Taking Vitamin D (Ergocalciferol) 1.25 MG (58596 UT) Capsule TAKE 1 CAPSULE BY MOUTH 1 TIME A MONTH Objective: Assessment: * Assessment: 1.??Chronic kidney disease, stage 3a - N18.31 (Primary)??2.??Essential hypertension - I10??3.??Anxiety disorder, unspecified - F41.9??4.??Gastro-esophageal reflux disease with esophagitis, without bleeding - K21.00?? Plan: * Treatment: * Billing Information: * Visit Code:?? 51040 Office Visit, Est Pt., Level 4. * Procedure Codes:?? * SPORTATION MAINTENANCE SUPERVISOR Sign off status: Pending * Provider:??MD ELIZABETH, F.A.C.P, F.A.S .N. Date:??03/14/2024
[2024-05-28 12:36] LABS: Hematocrit 35.4 % (37.0-47.0); Hemoglobin 11.4 g/dL (12.0-15.0); Mean Corpuscular HGB Conc 32.2 g/dl (32-36); Mean Corpuscular Volume 102.6 fl (80-100); Mean Platelet Volume 9.3 fl (7.4-10.4); Platelet Count Result 241 k/mm3 (150-375); Red Blood Count 3.45 M/mm3 (4.2-5.4); Red Cell Distribution Width 12.9 % (11.5-14.5); White Blood Count 7.9 K/mm3 (4.5-10.0)
[2024-05-28 12:43] LABS: Add Urine Microscopic? YES; Appearance Urine Clear (Clear); Bacteria Urine None Seen /hpf; Bilirubin Urine Negative (Negative); Blood Urine Trace (Negative); Color Urine Yellow (Yellow); Glucose Urine UA Negative (Negative); Ketones Urine Negative (Negative); Leukocyte Esterase Ur Trace LEU/UL (Negative); Nitrate Urine Negative (Negative); Non Pathogenic Casts 0-2; Protein Urine Negative (Negative); RBC Urine 0-2 /hpf (0-2); Squamous Epithelial Cell Urine None Seen /hpf (Few); Urobilinogen Urine 0.2 mg/dL (<2.0); WBC Urine 0-5 /hpf (0-3); pH Urine 5.5 (5.0-9.0)
[2024-05-28 12:48] LABS: INR 0.9; Prothrombin Time 12.7 Seconds (11.1-14.7)
[2024-05-28 12:49] LABS: Anion Gap 13 mmol/L (4-12); Blood Urea Nitrogen 28 mg/dL (7-17); Calcium 9.4 mg/dL (8.4-10.2); Carbon Dioxide 22 mmol/L (22-30); Chloride 104 mmol/L (98-107); Estimated Glomerular Filt Rate 46; Glucose 99 mg/dL (65-110); Partial Thromboplastin Time 36.6 Seconds (22.3-36.8); Potassium 4.2 mmol/L (3.4-5.0); Sodium 139 mmol/L (137-145)
--- OUTSIDE RECORDS SUMMARY | 2024-05-28 13:03 | XMS_ITS | CONTINUITY OF CARE DOCUMENT ---
Author Name rolanda, rolanda Address Unknown Organization [facility] Address [address] [facility] [address] [place] [address] Phone [phone] Care Team Providers Care Game Attendant Name Role Phone Sammy Sinclair MD Unavailable Charlie Leblanc MD Unavailable Charlie Leblanc MD Unavailable PROBLEMS Condition Status Date Provider Notes CKD active Jose Elias Ahmedzai Hypertension active Jose Elias Ahmedzai Hyperlipidemia active Jose Elias Ahmedzai Dyspnea on exertion--echo ef nl, mild TR, pasp 32. stress nuc nl, 02/2024 active Jose Elias Polanco Family hx of heart disease active Jose Elias mccurdy Preoperative cardiovascular evaluation active Jose Eliasmichael Barryi LBBB active Jose Elias Ahsachii Abnormal EKG completed - Jose Elias Ahmedzai ENCOUNTERS Date Type Provider Location Encounter Diag nosis - In-person encounter Office Visit Sammy Sinclair MD [facility] Dyspnea on exertion--echo ef nl, mild TR, pasp 32. stress nuc nl, 02/2024 - In-person encounter Office Visit Sammy Sinclair MD [facility] Abnormal EKGLBBBPreoperative cardiovascular evaluationFamily hx of [...] Ruple oxygen saturation, oximetry 98 % [facility] pulse rate 80 /min [facility] weight E&M 136 [lb_av] [facility] height E&M 62 [in_i] Claudia [facility] Body Mass Index (Ratio) 24.87 kg/m2 Jagdeep Sinclair MD blood pressure, diastolic 81 mm[Hg] Li nkLogic blood pressure, systolic 146 mm[Hg] Radha kLogic blood pressure, diastolic 81 mm[Hg] Ka yla Ruple blood pressure, systolic 146 mm[Hg] Vickie la Ruple blood pressure, cuff size regular Ka yla Ruple oxygen saturation, oximetry 98 % [facility] pulse rate 79 /min [facility] weight E&M 136 [lb_av] Claudia Ruple height [...] Payer name Policy type / Coverage type [place] red republican ID [employer] SENIOR SUPPLEMENTAL INS Commercial insuran ce company [id number] [place] Medicare [id number] TREATMENT PLAN Date Name Performer Cardiology:This visi [...] Tablet (Lisinopril) Amlodipine 10 Mg Tablet (Amlodipine) [facility]: H er updated medication list for this problem includes: Atorvastatin 10 Mg Tablet (Atorvastatin) [facility] Cardiology: H er updated medication list for this problem includes: Lisinopril 10 Mg Tablet (Lisinopril) Amlodipine 10 Mg Tablet (Amlodipine) [facility]: H er updated medication list for this problem includes: Atorvastatin 10 Mg Tablet (Atorvastatin) Orders: C omplete Echo (74883) S tress Regadenoson (CPT-09665) [facility]: O rders: C omplete Echo (61130) S tress Regadenoson (CPT-43617) [facility]: H er updated medication list for this problem includes: Lisinopril 10 Mg Tablet (Lisinopril) Amlodipine 10 Mg Tablet (Amlodipine) Orders: C omplete Echo (90719) S tress Regadenoson (CPT-82498) [facility]: H er updated medication list for this problem includes: Lisinopril 10 Mg Tablet (Lisinopril) Amlodipine 10 Mg Tablet (Amlodipine) Orders: C omplete Echo (21962) S tress Regadenoson (CPT-76538) Jose Elias [facility]: H er updated medication list for this problem includes: Lisinopril 10 Mg Tablet (Lisinopril) Amlodipine 10 Mg Tablet (Amlodipine) Orders: C omplete Echo (66377) S tress Regadenoson (CPT-37125) Jose Elias Barryashutosh Date Name Stress Regadenoson Complete Echo HISTORY OF PROCEDURES Procedure Date Procedure Name Provider Procedure Notes S tatus Complex e/m visit add on Sammy Sinclair MD completed EKG Sammy Sinclair MD completed
--- OUTSIDE RECORDS SUMMARY | 2024-05-28 13:03 | XMS_ITS | Clinical Summary ---
Author Organization [facility] Address [address] [facility] [place] [address] Care Team Providers Care Deputy County Counsel Name Role Phone Rm Sinclair MD Unavailable [phone] Source Comments [facility],non-owned Affiliates and Associated Physician Practices is amultiple site organization consisting of ambulatory clinics and hospital sitesin [place], [place], [place] and [place]. This disclosure is being madepursuant to the Care Everywhere program and may not contain all information available regarding this patient. Last updated 18.[facility] [employer] Allergies No known active allergies Medications * [...] Active vitamin D, ergocalciferol, (Drisdol) 1.25 MG (36869 UT) capsule Take 1 (one) capsule by [...] Comments Blood Pressure 154/71 05/03/2022 1:25 PM DISTRIBUTOR SALES MANAGER Pulse 80 05/03/2022 1:25 PM DISTRIBUTOR SALES MANAGER Temperature 36.5 ??C (97.7 ??F) 05/03/2022 1:06 PM CS T Respiratory Rate 16 05/03/2022 1:25 PM DISTRIBUTOR SALES MANAGER Oxygen Saturation 98% 05/03/2022 1:25 PM DISTRIBUTOR SALES MANAGER Inhaled Oxygen Concentration - - Weight 54 kg (119 lb) 05/03/2022 9:55 AM DISTRIBUTOR SALES MANAGER Height 157.5 cm (5' 2 ) 05/03/2022 9:55 AM DISTRIBUTOR SALES MANAGER Body Mass Index 21.77 05/03/2022 9:55 AM DISTRIBUTOR SALES MANAGER Plan of Treatment Health Maintenance Due Date [...] this topic Medical Devices Explanted Type Area First Coat Operator Device Identifier Shelf Expiration Date Model / Serial / Lot Stent Biliary 10fr 7cm Cntr Bnd Temp [facility] - [id number] Implanted:Qty: 1 on 03/01/2022 by Tam Moncada MD at [facility] Explanted:Qty: 1 on 05/03/2022 by Tam Moncdaa MD at [facility] N/A: Bile Duct Home Team Therapy Micro[employer] 11/08/2023 [id number] / [id number] / [id number] Care Teams Deputy County Counsel Relationship Specialty [place] [address] [place] [address] PCP - Laith [facility] 02/29/24
--- OUTSIDE RECORDS SUMMARY | 2024-05-28 13:03 | XMS_ITS | Patient Health Summary ---
Author Organization [facility] Address [address] [place] [address] Care Team Providers Care Inspector Ball Points Name Role Phone Rm Sinclair MD Unavailable [phone] Note from [facility],non-owned Affiliates and Associated Physician Practices is amultiple site organization consisting of ambulatory clinics and hospital sitesin [place], [place], [place] and [place]. This disclosure is being madepursuant to the Care Everywhere program and may not contain all information available regarding this patient. Last updated 18.[facility] Allergies No known active allergies Medications * [...] * vitamin D, ergocalciferol, (Drisdol) 1.25 MG (63342 UT) capsule Take 1 (one) capsule by [...] Comments Blood Pressure 154/71 05/03/2022 1:25 PM DIRECTOR OF PATIENT CARE Pulse 80 05/03/2022 1:25 PM DIRECTOR OF PATIENT CARE Temperature 36.5 ??C (97.7 ??F) 05/03/2022 1:06 PM CS T Respiratory Rate 16 05/03/2022 1:25 PM DIRECTOR OF PATIENT CARE Oxygen Saturation 98% 05/03/2022 1:25 PM DIRECTOR OF PATIENT CARE Inhaled Oxygen Concentration - - Weight 54 kg (119 lb) 05/03/2022 9:55 AM DIRECTOR OF PATIENT CARE Height 157.5 cm (5' 2 ) 05/03/2022 9:55 AM DIRECTOR OF PATIENT CARE Body Mass Index 21.77 05/03/2022 9:55 AM DIRECTOR OF PATIENT CARE Medical Devices Explanted Type Area Instrument Engineer Device Identifier Shelf Expiration Date Model / Serial / Lot Stent Biliary 10fr 7cm Cntr Bnd [facility] Rap - [id number] Implanted:Qty: 1 on 03/01/2022 by Tam Moncada MD at [facility] Explanted:Qty: 1 on 05/03/2022 by Tam Moncada MD at [facility] N/A: Bile Duct mii [employer] 11/08/2023 [id number] / [id number] / [id number] Procedures * ENDOSCOPIC RETROGRADE CHOLANGIOPANCREATOGRAPHY (ERCP)(Performed 05/03/2022) Performed for Calculus of gallbladder without cholecystitis without obstruction * ENDOTRACHEAL TUBE NOTE(Performed 05/03/2022) * ERCP(Performed 05/03/2022) * ENDOSCOPIC RETROGRADE CHOLANGIOPANCREATOGRAPHY (ERCP)(Performed 03/01/2022) Performed for Gallstones * ERCP(Performed 03/01/2022) * DERMATOPATHOLOGY(Performed 01/01/2013) Results * ETT LINE PERFORMABLE (05/03/2022 11:40 AM DIRECTOR OF PATIENT CARE) Narrative Tamiko Gonzalez Anes Asst - 05/03/2022 11:40 AM DIRECTOR OF PATIENT CARE Tamiko Gonzalez Anes Asst ? 05/03/2022 11:50 AM Endotracheal Tube Placement: ? Patient Location: OR. Intubation Event Date/Time: ??05/03/2022 11:40 AM Procedure: intubation (86464). Procedure Section: ?? Sedation: under general anesthesia. [...] O RDERABLES * ERCP (05/03/2022 11:17 AM DIRECTOR OF PATIENT CARE) Report Endoscopy POC Endoscopy Department Report _ [...] plastic biliary stent was visible on the instant printer operator film. The ? esophagus was successfully intubated [...] Procedure Code(s): ? --- Professional --- ? 58932, Endoscopic retrograde cholangiopancreatography (ERCP); with ? removal of foreign body(s) or stent(s) from biliary/pancreatic duct(s) ? 67195, Endoscopic retrograde cholangiopancreatography (ERCP); with ? removal of calculi/debris from biliary/pancreatic duct(s) ? 06660, Endoscopic catheterization of the biliary ductal system, ? radiological supervision and interpretation Diagnosis Code(s): ?--- Professional --- ?Z96.89, Presence of other specified functional ?implants ?K80.50, Calculus of bile duct without cholangitis ?or cholecystitis without obstruction ?Z46.59, Encounter for fitting and adjustment of ?other gastrointestinal appliance and device CPT copyright 2019 [employer]. All rights reserved. The codes documented in this report are preliminary and upon die cutter operator review may be revised to meet current compliance requirements. Tam Marx MD 05/03/2022 12:17:03 PM Note Initiated On: 05/03/2022 11:17 AM Number of Addenda: 0 ? [facility] ? [address] [place] [address] [facility] 05/03/2022 11:1 7 AM DIRECTOR OF PATIENT CARE Tam Marx MD GI PROCEDURE ORDERABLES [facility] * ERCP (03/01/2022 8:23 AM CDT) [...] the procedure well. ? Findings: ? The instant printer operator film was normal. The esophagus was successfully [...] Procedure Code(s): ? --- Professional --- ? 04223, Endoscopic retrograde cholangiopancreatography (ERCP); with ? placement of endoscopic stent into biliary or pancreatic duct, including ? pre- and post-dilation and guide wire passage, when performed, including ? sphincterotomy, when performed, each stent ? 75753, Endoscopic retrograde cholangiopancreatography (ERCP); with ? removal of calculi/debris from biliary/pancreatic duct(s) ? 37042, Endoscopic catheterization of the biliary ductal system, ? radiological supervision and interpretation Diagnosis Code(s): ?--- Professional --- ?K80.50, Calculus of bile duct without cholangitis ?or cholecystitis without obstruction CPT copyright 2019 [employer]. All rights reserved. The codes documented in this report are preliminary and upon die cutter operator review may be revised to meet current compliance requirements. Tam Marx MD 03/01/2022 11:31:40 AM Note Initiated On: 03/01/2022 8:23 AM Number of Addenda: 0 ? [facility] ? [address] [id number] [facility] 03/01/2022 8:23 AM CDT Tam Marx MD GI PROCEDURE ORDERABLES [facility] * PATHOLOGY TISSUE FOR DERMATOLOGY (01/01/2013 12:00 AM CDT) Result CASE: [id number] PATIENT: ASHLEY CHAIDEZ PATHOLOGIC DIAGNOSIS: A. ??Right [...] by Fallon Monroe M.D., PhD. 01/03/2013 11:46:24AM [facility] D[facility] Comment: Performed at: Dermatopathology Laboratory [facility] - Department of Dermatology [address] [place] [address] Phone number: [phone] Toll Free: [phone] FAX: [phone] 01/01/2013 01/02/2013 [facility] - PATHOLOGY/CYTO LOGY ORDERABLES Performing Organization Address City/State/ZIP Co sd Phone Number [facility] [address] [facility] Lab [address] [phone] Care Teams Inspector Ball Points Relationship Specialty [place] [address] [place] [address] PCP - [facility] 02/29/24
--- OUTSIDE RECORDS SUMMARY | 2024-05-28 13:04 | XMS_ITS | Referral Summary ---
Author Organization [facility] Address [address] [place] [address] Care Team Providers Care High Density Press Laborer Name Role Phone Rm Sinclair MD Unavailable [phone] Source Comments [facility],non-owned Affiliates and Associated Physician Practices is amultiple site organization consisting of ambulatory clinics and hospital sitesin [place], [place], [place] and [place]. This disclosure is being madepursuant to the Care Everywhere program and may not contain all information available regarding this patient. Last updated 18.[facility] Allergies No known active allergies Medications * [...] Active vitamin D, ergocalciferol, (Drisdol) 1.25 MG (07128 UT) capsule Take 1 (one) capsule by [...] Comments Blood Pressure 154/71 05/03/2022 1:25 PM OPEN HEARTH DOOR LINER Pulse 80 05/03/2022 1:25 PM OPEN HEARTH DOOR LINER Temperature 36.5 ??C (97.7 ??F) 05/03/2022 1:06 PM CS T Respiratory Rate 16 05/03/2022 1:25 PM OPEN HEARTH DOOR LINER Oxygen Saturation 98% 05/03/2022 1:25 PM OPEN HEARTH DOOR LINER Inhaled Oxygen Concentration - - Weight 54 kg (119 lb) 05/03/2022 9:55 AM OPEN HEARTH DOOR LINER Height 157.5 cm (5' 2 ) 05/03/2022 9:55 AM OPEN HEARTH DOOR LINER Body Mass Index 21.77 05/03/2022 9:55 AM OPEN HEARTH DOOR LINER Functional Status Functional Status Response Date of [...] on file Medical Devices Explanted Type Area Requirements Manager Device Identifier Shelf Expiration Date Model / Serial / Lot Stent Biliary 10fr 7cm Cntr Bnd Temp Rap - [id number] Implanted:Qty: 1 on 03/01/2022 by Tam Moncada MD at [facility] Explanted:Qty: 1 on 05/03/2022 by Tam Moncada MD at [facility] N/A: Bile Duct [employer] 11/08/2023 [id number] / [id number] / [id number] Care Teams High Density Press Laborer Relationship Specialty [place] [address] [place] [address] PCP - [facility] 02/29/24
== END 2024-05-28 11:53 | disposition home or self-care (01) ==
PROVIDERS: PCP Internal Medicine; Visit Provider Neurological Surgery
DX: Z01.812 Encounter for preprocedural laboratory examination (principal); M48.062 Spinal stenosis, lumbar region with neurogenic claudication
CPT/HCPCS: 36415; 80048; 81001; 85027; 85610; 85730

== ENCOUNTER 2024-06-13 00:08 | Day surgery (SDC) | payer MEDICARE, SELFPAY ==
[2024-02-28 12:44] VITALS: BMI 24.2
--- NOTE | 2024-02-28 12:58 | PC.NURSE ---
Addendum entered by Kassie Preston RN 05/28/24 12:15: Pt presents today with Cardiac clearance letter and wants to proceed with surgery as previously set up New date and time and instructions as below, VSS and pt has no med changes or change in status from last interview. Report to the Outpatient Waiting Room, entrance under the green pavilion located off [facility], at time __0600am___ on date _06/13/24 . Planned Procedure Time: ___30am .? take only the following medications with a SIP of water on the morning of surgery: __Amlodipine and Citalopram, Tylenol as needed DO NOT STOP ANY OF YOUR OTHER PRESCRIPTION MEDICATIONS PRIOR TO SURGERY EXCEPT THE FOLLOWING Medications to discontinue per physician Hold all vitamins & supplements for 3 days prior per Anesthesia Date to take last dose 06/09/24 Rest of below instructions reviewed again w pt and she voices understanding. MAGGIE Original Note: Report to the Outpatient Waiting Room, entrance under the green pavilion located off [facility], at time __0600am___ on date _03/07/24 . Planned Procedure Time: ___30am .? Time changes happen often and if your time is changed the preop area will call you the afternoon before. - You and your visitor will be asked to self-screen and do not enter if you have any COVID symptoms. Please call surgeon if you need to reschedule. - A mask is optional within the hospital at this time. Patients may have clear liquids (water, carbonated beverages, clear teas, apple juice) until 3 hours prior to surgery with a maximum of 20 ounces. - No food from midnight until time of surgery and no smoking Take only the following medications with a SIP of water on the morning of surgery: __Amlodipine and Citalopram, Tylenol as needed DO NOT STOP ANY OF YOUR OTHER PRESCRIPTION MEDICATIONS PRIOR TO SURGERY EXCEPT THE FOLLOWING Medications to discontinue per physician Hold all vitamins & supplements for 3 days prior per Anesthesia Date to take last dose 03/03/24 Please no make-up, nail chinese, hairspray, perfume, deodorant, or body powder the day of surgery.? No jewelry (including any body piercings) or valuables the day of surgery, leave them at home.? Please take a shower or bath the night before, or the morning of, surgery with an antibacterial soap.? Wear comfortable, loose fitting clothing.? - Jewelry must be removed prior to entering the operating room.? Rings and piercings that are not removed may be cut off. - The hospital will not accept responsibility for valuables.? - Please leave all valuables, including medications, at home the day of surgery. If you are going home after surgery, a licensed regional company hazmat tanker driver must drive you home.? - NO public transportation without another adult if you receive anesthesia. - We recommend that an adult stay with you for 24 hours following discharge. - We also recommend that you do not drive, make important decision, drink alcoholic beverages, or take any drugs that were not prescribed by your health care provider for at least 24 hours after your discharge time. Follow any additional instructions given to you from your surgeon. Telephone instructions given to ___patient and asked if any additional questions and then verbalized understanding. Patient advised to call surgeon office or pre surgery nurse liaison [phone] if any additional questions.
[2024-05-28 12:08] VITALS: BP 151/75; PULSE 98; RESP 16; TEMP 36.6; O2SAT 98
[2024-05-28 12:10] VITALS: BMI 25.4
[2024-06-13] VITALS (7 sets, daily range): BP systolic 138–152; BP diastolic 52–72; PULSE 80–87; RESP 13–18; TEMP 36.2–36.8; O2SAT 96–100
--- NOTE | ~2024-06-13 | XR_ITS ---
EXAMINATION: XR fluoroscopy no charge DATE: 06/13/2024 08:37 INDICATION: L3-L4 bilateral lumbar laminectomies and medial facet likely TECHNIQUE: 3 fluoroscopic images of the lumbar spine were obtained during procedure performed by Dr. Gómez. Radiologist was not present for the imaging or procedure. The amount of fluoroscopy time used d uring this procedure was 0.2 minutes. Total DAP was 2.099 Gycm^2. COMPARISON: 11/21/2023 FINDINGS: Again seen is grade 1 anterolisthesis L4 on L5. Tissue retractors and a metallic probe projects over the posterior elements of L4. IMPRESSION: 1. Fluoroscopy was utilized during a lumbar neurosurgical procedure. See procedure note for further d etail. Reviewed, dictated and finalized at location A. SING MACHINE OPERATOR IMPRESSION: 1. Fluoroscopy was utilized during a lumbar neurosurgical procedure. See proced ure note for further detail.
--- OUTSIDE RECORDS SUMMARY | 2024-06-13 00:14 | XMS_ITS ---
Author Organization [facility] Address [address] [place] [address] Care Team Providers Care Name Plate Stamping Machine Operator Name Role Phone Sinclair Rm Unavailable [phone] MEDICATIONS Medication SIG (Take, Route, Fr equency, Duration) Notes Start Date End Date Status Calcitriol 0.25 MCG TAKE 1 CASULE BY AYAZ TH EVERY OTHER DAY for 180 Active Encounters Encounter Location Date Provider Diagnosis [place] [address] [facility] [address] [place] [address] 06/11/2024 Rm Sinclair PLAN OF TREATMENT Medication Medication Name Sig Start Date Stop Date Notes Calcitriol 0.25 MCG TAKE 1 CASULE BY AYAZ TH EVERY OTHER DAY for 180 Next Appt Details Provider Name:Rm Sinclair , 09/03/2024 02:30:00 PM, [address] [facility] [address], [place], [address], Progress Notes * LUKAS CAPPSDOB: 3 (83 yo F)Acc No.[id number]:06/11/2024 Patient: LUKAS CAPPS :1940 Age:83 Y Sex:Female Address:[address] [place] [address] * Refills Refill Calcitriol Capsule, 0.25 MCG, 90 Capsule, TAKE 1 CASULE BY MOUTH EVERY OTHER DAY, 180, Refills=0 * * Date:
--- OUTSIDE RECORDS SUMMARY | 2024-06-13 00:14 | XMS_ITS | Clinical Summary ---
Author Organization [facility] [employer] Address [address] [place] [address] Care Team Providers Care Associate Research Scientist Name Role Phone Rm Sinclair MD Unavailable [phone] Source Comments [facility],non-owned Affiliates and Associated Physician Practices is amultiple site organization consisting of ambulatory clinics and hospital sitesin [place], [place] and [place]. This disclosure is being madepursuant to the Care Everywhere program and may not contain all information available regarding this patient. Last updated 18.[facility] [employer] Allergies No known active allergies Medications * [...] Active vitamin D, ergocalciferol, (Drisdol) 1.25 MG (13477 UT) capsule Take 1 (one) capsule by [...] Comments Blood Pressure 154/71 05/03/2022 1:25 PM SUPERVISING AIRPLANE PILOT Pulse 80 05/03/2022 1:25 PM SUPERVISING AIRPLANE PILOT Temperature 36.5 C (97.7 F) 05/03/2022 1:06 PM SUPERVISING AIRPLANE PILOT Respiratory Rate 16 05/03/2022 1:25 PM SUPERVISING AIRPLANE PILOT Oxygen Saturation 98% 05/03/2022 1:25 PM SUPERVISING AIRPLANE PILOT Inhaled Oxygen Concentration - - Weight 54 kg (119 lb) 05/03/2022 9:55 AM SUPERVISING AIRPLANE PILOT Height 157.5 cm (5' 2 ) 05/03/2022 9:55 AM SUPERVISING AIRPLANE PILOT Body Mass Index 21.77 05/03/2022 9:55 AM SUPERVISING AIRPLANE PILOT Plan of Treatment Health Maintenance Due Date Last Done Comments BONE DENSITY TESTING 1940 MEDICARE AWV 12 MONTHS 1940 DTAP/TDAP/TD VACCINES (1 - [...] this topic Medical Devices Explanted Type Area Family And Consumer Sciences Professor Device Identifier Shelf Expiration Date Model / Serial / Lot Stent Biliary 10fr 7cm Cntr Bnd [facility] - [id number] Implanted:Qty: 1 on 03/01/2022 by Tam Moncada MD at [facility] Explanted:Qty: 1 on 05/03/2022 by Tam Moncada MD at [facility] N/A: Bile Duct [employer] 11/08/2023 [id number] / [id number] / [id number] Care Teams Associate Research Scientist Relationship Specialty [place] [address] [place] [address] MEGAN Ozuna [facility] 02/29/24
--- OUTSIDE RECORDS SUMMARY | 2024-06-13 00:14 | XMS_ITS | Patient Health Summary ---
Author Organization [facility] Address [address] [place] [address] Care Team Providers Care Staff Veterinarian Name Role Phone Rm Sinclair MD Unavailable [phone] Note from [facility],non-owned Affiliates and Associated Physician Practices is amultiple site organization consisting of ambulatory clinics and hospital sitesin [place], [place], [place] and [place]. This disclosure is being madepursuant to the Care Everywhere program and may not contain all information available regarding this patient. Last updated 18.[facility] Allergies No known active allergies Medications * [...] * vitamin D, ergocalciferol, (Drisdol) 1.25 MG (65365 UT) capsule Take 1 (one) capsule by [...] Comments Blood Pressure 154/71 05/03/2022 1:25 PM COMMODITY MANAGEMENT SPECIALIST Pulse 80 05/03/2022 1:25 PM COMMODITY MANAGEMENT SPECIALIST Temperature 36.5 C (97.7 F) 05/03/2022 1:06 PM COMMODITY MANAGEMENT SPECIALIST Respiratory Rate 16 05/03/2022 1:25 PM COMMODITY MANAGEMENT SPECIALIST Oxygen Saturation 98% 05/03/2022 1:25 PM COMMODITY MANAGEMENT SPECIALIST Inhaled Oxygen Concentration - - Weight 54 kg (119 lb) 05/03/2022 9:55 AM COMMODITY MANAGEMENT SPECIALIST Height 157.5 cm (5' 2 ) 05/03/2022 9:55 AM COMMODITY MANAGEMENT SPECIALIST Body Mass Index 21.77 05/03/2022 9:55 AM COMMODITY MANAGEMENT SPECIALIST Medical Devices Explanted Type Area Parts Counter Specialist Device Identifier Shelf Expiration Date Model / Serial / Lot Stent Biliary 10fr 7cm Cntr Bnd Temp Rap - [id number] Implanted:Qty: 1 on 03/01/2022 by Tam Moncada MD at [facility] Explanted:Qty: 1 on 05/03/2022 by Tam Moncada MD at [facility] N/A: Bile Duct [employer] 11/08/2023 [id number] / [id number] / [id number] Procedures * ENDOSCOPIC RETROGRADE CHOLANGIOPANCREATOGRAPHY (ERCP)(Performed 05/03/2022) Performed for Calculus of gallbladder without cholecystitis without obstruction * ENDOTRACHEAL TUBE NOTE(Performed 05/03/2022) * ERCP(Performed 05/03/2022) * ENDOSCOPIC RETROGRADE CHOLANGIOPANCREATOGRAPHY (ERCP)(Performed 03/01/2022) Performed for Gallstones * ERCP(Performed 03/01/2022) * DERMATOPATHOLOGY(Performed 01/01/2013) Results * ETT LINE PERFORMABLE (05/03/2022 11:40 AM COMMODITY MANAGEMENT SPECIALIST) Narrative Tamiko Gonzalez Anes Asst - 05/03/2022 11:40 AM COMMODITY MANAGEMENT SPECIALIST Tamiko Gonzalez Anes Asst 05/03/2022 11:50 AM Endotracheal Tube Placement: Patient Location: OR. Intubation Event Date/Time: 05/03/2022 11:40 AM Procedure: intubation (77442). Procedure Section: Sedation: under general anesthesia. Indications for Airway Management: anesthesia Procedure pretreatments used? No Induction: standard IV Patient Position: sniffing Mask Ventilation: easy. Blade Type: Xie Blade [...] ETT in proper place. Tube secured with: adhesive tape. Dentition unchanged? Yes Difficult Airway? No. Procedure Start Time: 05/03/2022 11:40 AM. Staff Section Anesthesia Provider: Tamiko Gonzalez Anes Asst, Performed the procedure Lexi Rodgers MD GENERAL ANESTHESIA O RDERABLES * ERCP (05/03/2022 11:17 AM COMMODITY MANAGEMENT SPECIALIST) Report Endoscopy POC Endoscopy Department Report _ Patient Name: Ashley Chaidez Procedure Date: 05/03/2022 11:17 AM Date of : 1940 Classification: Outpatient Gender: Female Ethnicity: Not or Race: White _ Providers: Tam Marx MD Referring MD: Maulik Tubbs MD Procedure: ERCP Indications: Biliary stent removal Medications: See the Anesthesia note for documentation of the administered medications IVFs w/ LR, Indomethacin not given due to renal function Patient Profile: 81F presents for repeat ERCP for stone removal and stent removal / revision. ERCP 02/2022: Choledocholithiasis treated via biliary sphincterotomy and balloon extraction of debris and stone fragments with incomplete clearance. One 10 Fr by 7 cm transpapillary plastic stent was placed into the main bile duct. Description of Procedure: After obtaining informed consent, the scope was passed under direct vision. Throughout the procedure, the patient's blood pressure, pulse, and oxygen saturations were monitored continuously. The Duodenoscope was introduced through the mouth, and advanced to the duodenum and used to inject contrast into the bile duct. The ERCP was accomplished without difficulty. The patient tolerated the procedure well. Findings: A pre-existing plastic biliary stent was visible on the child nurse film. The esophagus was successfully intubated under direct vision without detailed examination of the upper GI tract given the use of a sideviewing duodenoscope. A biliary sphincterotomy had been performed. The sphincterotomy appeared open. One plastic stent originating in the biliary tree was seen emerging from the major papilla. The stent was visibly patent. The stent was removed from the biliary tree using a snare. A short 0.035 inch soft Jagwire was easily passed into the biliary tree on first attempt. An adjustable biliary extraction balloon cannula was passed over the guidewire and the bile duct was then deeply cannulated. Contrast was injected. I personally interpreted the bile duct images. Ductal flow of contrast was adequate. Image quality was adequate. Contrast extended to the hepatic ducts. There were multiple small filling defects in the common bile duct consistent with stones. The biliary tree was swept with an adjustable biliary extraction balloon starting at the bifurcation. Many stones / stone fragments were removed till complete clearance. Preparations were made for cholangiography using the balloon occlusion technique. The balloon-tipped catheter was advanced to the hepatic duct bifurcation. The balloon was inflated to 15 mm in size. Contrast was then injected into the biliary tree and opacified the intrahepatic ducts. No residual filling defects were present. There was no indication for biliary stent replacement. Estimated Blood Loss: Estimated blood loss was minimal. Complications: No immediate complications. Impression: - Patent pre-existing biliary sphincterotomy with one transpapillary plastic biliary stent in place. The stent was removed. - Cholangiogram with residual stones in the main bile duct, completely removed via balloon extraction with complete ductal clearance. Moderate Sedation: GA Recommendation: - Monitor for fevers, bleeding, abdominal pain, jaundice. - Resume previous diet and medications. - Follow-up with Primary Care has been discussed with the patient/caregiver. - The potential complications and concerning symptoms/findings, including but not limited to early or delayed fevers, infection, pain, bleeding, pancreatitis and perforation, were discussed with the patient/caregiver. Emergency contact information was provided. Attending Participation: I personally performed the entire procedure. Procedure Code(s): --- Professional --- 55171, Endoscopic retrograde cholangiopancreatography (ERCP); with removal of foreign body(s) or stent(s) from biliary/pancreatic duct(s) 41097, Endoscopic retrograde cholangiopancreatography (ERCP); with removal of calculi/debris from biliary/pancreatic duct(s) 97694, Endoscopic catheterization of the biliary ductal system, radiological supervision and interpretation Diagnosis Code(s): --- Professional --- Z96.89, Presence of other specified functional implants K80.50, Calculus of bile duct without cholangitis or cholecystitis without obstruction Z46.59, Encounter for fitting and adjustment of other gastrointestinal appliance and device CPT copyright 2019 [employer]. All rights reserved. The codes documented in this report are preliminary and upon protein specialist review may be revised to meet current compliance requirements. Tam Marx MD 05/03/2022 12:17:03 PM Note Initiated On: 05/03/2022 11:17 AM Number of Addenda: [id number] [place] [address] PROVATION 05/03/2022 11:1 7 AM COMMODITY MANAGEMENT SPECIALIST Tam Marx MD GI PROCEDURE ORDERABLES [facility] * ERCP (03/01/2022 8:23 AM CDT) Report Endoscopy POC Endoscopy Department Report _ Patient Name: Ashley Chaidez Procedure Date: 03/01/2022 8:23 AM Date of : 1940 Classification: Outpatient Gender: Female Ethnicity: Not or Race: White _ Providers: Tam Marx MD Referring MD: Maulik Tubbs MD Procedure: ERCP Indications: Common bile duct stone(s) Medications: See the Anesthesia note for documentation of the administered medications IVFs w/ LR, Indomethacin not given due to renal function Patient Profile: 81F presents as direct referral for ERCP in the setting of abdominal pain w/ recent MRI/MRCP demonstrating cholelithiasis and choledocholithiasis. Description of Procedure: After obtaining informed consent, the scope was passed under direct vision. Throughout the procedure, the patient's blood pressure, pulse, and oxygen saturations were monitored continuously. The duodenoscope was introduced through the mouth, and advanced to the duodenum and used to inject contrast into the bile duct. The ERCP was accomplished without difficulty. The patient tolerated the procedure well. Findings: The child nurse film was normal. The esophagus was successfully intubated under direct vision. The scope was advanced to a normal major papilla in the descending duodenum without detailed examination of the upper GI tract given the use of a sideviwing duodenoscope. A short 0.035 inch soft Jagwire was easily passed into the biliary tree on first attempt. A short-nosed traction sphincterotome cannula was passed over the guidewire and the bile duct was then deeply cannulated. Contrast was injected. I personally interpreted the bile duct images. Ductal flow of contrast was adequate. Image quality was adequate. Contrast extended to the hepatic ducts. The main extrahepatic bile duct was diffusely dilated, measuring approximately 14 mm in diameter. A filling defect thought to represent a stone, measuring approximately 10 mm in size was found in the common bile duct. The cystic duct was patent. A biliary sphincterotomy was made with a traction (standard) sphincterotome using ERBE electrocautery. There was no post-sphincterotomy bleeding. The biliary tree was swept with a 9-12 mm adjustable biliary extraction balloon starting at the bifurcation. Debris and stone fragments were swept from the duct with incomplete clearance. One 10 Fr by 7 cm transpapillary plastic stent with a single external flap and a single internal flap was placed into the main bile duct. Bile flowed through the stent. The stent was in good position. Estimated Blood Loss: Estimated blood loss was minimal. Complications: No immediate complications. Impression: - Choledocholithiasis treated via biliary sphincterotomy and balloon extraction of debris and stone fragments with incomplete clearance. - One 10 Fr by 7 cm transpapillary plastic stent was placed into the main bile duct. Moderate Sedation: MAC Recommendation: - Monitor for fevers, bleeding, abdominal pain, jaundice. - If pain free, start clear liquid diet today, then advance to low fat diet as tolerated tomorrow. - Hold any anticoagulant medications (blood thinners) for 2 days. Resume rest of home medications today. - Plan for repeat ERCP in 2 months. - Follow-up with General Surgery for expedited Cholecystectomy. - Follow-up with the referring providers has been discussed with the patient/caregiver. - The potential complications and concerning symptoms/findings, including but not limited to early or delayed fevers, infection, pain, bleeding, pancreatitis and perforation, were discussed with the patient/caregiver. Emergency contact information was provided. Attending Participation: I personally performed the entire procedure. Procedure Code(s): --- Professional --- 94415, Endoscopic retrograde cholangiopancreatography (ERCP); with placement of endoscopic stent into biliary or pancreatic duct, including pre- and post-dilation and guide wire passage, when performed, including sphincterotomy, when performed, each stent 78441, Endoscopic retrograde cholangiopancreatography (ERCP); with removal of calculi/debris from biliary/pancreatic duct(s) 53569, Endoscopic catheterization of the biliary ductal system, radiological supervision and interpretation Diagnosis Code(s): --- Professional --- K80.50, Calculus of bile duct without cholangitis or cholecystitis without obstruction CPT copyright 2019 [employer]. All rights reserved. The codes documented in this report are preliminary and upon protein specialist review may be revised to meet current compliance requirements. Tam Marx MD 03/01/2022 11:31:40 AM Note Initiated On: 03/01/2022 8:23 AM Number of Addenda: [address] PROVATION 03/01/2022 8:23 AM CDT Tam Marx MD GI PROCEDURE ORDERABLES Performing Organization Address City/State/[facility] Co de Phone Number [facility] * PATHOLOGY TISSUE FOR DERMATOLOGY (01/01/2013 12:00 AM CDT) Result CASE: [id number] PATIENT: ASHLEY CHAIDEZ PATHOLOGIC DIAGNOSIS: A. Right forearm distal: BLUE NEVUS, SCLEROTIC TYPE B. Right forearm proximal: SEBORRHEIC KERATOSIS, MACULAR C. Right wrist: SEBORRHEIC KERATOSIS, MACULAR CLINICAL DATA: A: Blue nevus. B: SK. C: SK. GROSS DESCRIPTION: A: Received is one formalin filled container labeled with the patient's name and designated right forearm distal. The specimen consists of a shave biopsy measuring 5x3x1 mm. Jar 0. B: Received is one formalin filled container labeled with the patient's name and designated right forearm proximal. The specimen consists of a shave biopsy measuring 7x6x1 mm. Jar 0. C: Received is one formalin filled container labeled with the patient's name and designated right wrist. The specimen consists of a shave biopsy measuring 6x4x1 mm. Jar 0. MICROSCOPIC DESCRIPTION: SPECIMEN A: Within the dermis there are is a relatively well circumscribed central nodule with thick collagen bundles arranged in a storiform pattern with prominent clefts. Oval, spindle-shaped and dendritic melanocytes are seen within the nodule. SPECIMEN B: Sections show a relatively broad, flat proliferation of small keratinocytes. The surface is gently papillated, and there is increased basilar pigmentation. SPECIMEN C: Sections show a relatively broad, flat proliferation of small keratinocytes. The surface is gently papillated, and there is increased basilar pigmentation. Electronically signed out by Fallon Monroe M.D., PhD. 01/03/2013 11:46:24AM [facility] Comment: Performed at: Dermatopathology Laboratory [facility] - Department of Dermatology [address] [place] [address], [address] [place] [address] Phone number: [phone] Toll Free: [phone] FAX: [phone] 01/01/2013 01/02/2013 [facility] - PATHOLOGY/CYTO LOGY ORDERABLES [facility] [address] [place] [address]. [address] Floor Lab [address] [phone] Care Teams Staff Veterinarian Relationship Specialty [place] [address] [place] [address] PCP - [facility] 02/29/24
--- OUTSIDE RECORDS SUMMARY | 2024-06-13 00:14 | XMS_ITS | Patient Health Record ---
Author Organization [facility] Address [address] [place] [address] Care Team Providers Care Inspector Elevators Name Role Phone Rm Sinclair Unavailable [phone] REASON FOR REFERRAL No Information MEDICATIONS Medication [...] 1 tablet Orally Once a day Active Calcitriol 0.25 MCG TAKE 1 CASULE BY AYAZ TH EVERY OTHER DAY for 180 Active Omeprazole 40 MG 1 capsule 30 minutes before morning meal Orally Once a day Active Ergocalciferol 1.25 MG (06670 UT) 1 capsule Orally Once a week for 90 day(s) 11/06/2023 2024 Active Vitamin D (Ergocalciferol) 1.25 MG (09264 UT) TAKE 1 CAPSULE BY MOUTH 1 TIME A MONTH for 90 Active Calcium 600 MG 1 tablet with meals Orally Twice a day Active Citalopram Hydrobromide 20 MG 1 tablet Orally Once a day Active PROBLEMS Problem Type ICD Code Onset Dates Problem Status W/U Status Risk SNOMED Code Notes Problem Type 2 diabetes mellitus with diabetic chronic kidney disease (E11.22) Active confirmed Diabetic renal disease (816505804) Problem Anxiety disorder, unspecified (F41.9) Active confirmed Anxiety disorde r (356827986) Problem Essential hypertension (I10) Active confirmed Essential hypertension (47951067) Problem Gastro-esophage al reflux disease with esophagitis, without bleeding (K21.00) Active confirmed Gastroesophagea l reflux disease with esophagitis (disorder) (858550795) Problem Chronic kidney disease, stage 3a (N18.31) Active confirmed Chronic kidney disease stage 3A (disorder) (165690134) Encounters Encounter Location Date Provider Diagnosis [facility] [address] [place] [address] 09/14/2023 Rm Sinclair Chronic kidney disease, stage 3a N18.31 ; Essential hypertension I10 ; Anxiety disorder, unspecified F41.9 and Gastro-esophageal reflux disease with esophagitis, without bleeding K21.00 [facility] [address] [place] [address] 12/14/2023 Rm Sinclair Chronic kidney disease, stage 3a N18.31 ; Essential hypertension I10 ; Anemia, unspecified D64.9 ; Anxiety disorder, unspecified F41.9 and Gastro-esophageal reflux disease with esophagitis, without bleeding K21.00 [facility] [address] [place] [address] 03/14/2024 Rm Sinclair Chronic kidney disease, stage 3a N18.31 ; Essential hypertension I10 ; Anxiety disorder, unspecified F41.9 and Gastro-esophageal reflux disease with esophagitis, without bleeding K21.00 [facility] [address] [place] [address] 06/11/2024 Rm Sinclair Chronic kidney disease, stage 3a N18.31 ; Anxiety disorder, unspecified F41.9 ; Essential hypertension I10 ; Type 2 diabetes mellitus with diabetic chronic kidney disease E11.22 and Hyperkalemia E87.5 [facility] [address] [place] [address] 06/11/2024 Rm Barreto [address] [place] [address] 11/06/2023 Rm Sinclair ASSESSMENTS Encounter Date Diagnosis Assessment Notes Treatment Notes Treatment Clinical Notes Section Notes 09/14/2023 Chronic kidney disease, stage 3a (ICD-10 - N18.31) 12/14/2023 Essential hypertension (ICD-10 - I10) 12/14/2023 Chronic kidney disease, stage 3a (ICD-10 - N18.31) 03/14/2024 Chronic kidney disease, stage 3a (ICD-10 - N18.31) 06/11/2024 Anxiety disorder, unspecified (ICD-10 - F41.9) 06/11/2024 Chronic kidney disease, stage 3a (ICD-10 - N18.31) 06/11/2024 Essential hypertension (ICD-10 - I10) 03/14/2024 Essential hypertension (ICD-10 - I10) 12/14/2023 Anemia, unspecified (ICD-10 - D64.9) 09/14/2023 Essential hypertension (ICD-10 - I10) 09/14/2023 Anxiety disorder, unspecified (ICD-10 - F41.9) 12/14/2023 Anxiety disorder, unspecified (ICD-10 - F41.9) 03/14/2024 Anxiety disorder, unspecified (ICD-10 - F41.9) 06/11/2024 Type 2 diabetes mellitus with diabetic chronic kidney disease (ICD-10 - E11.22) 06/11/2024 Hyperkalemia (ICD-10 - E87.5) 03/14/2024 Gastro-esophageal reflux disease with esophagitis, without bleeding (ICD-10 - K21.00) 12/14/2023 Gastro-esophageal reflux disease with esophagitis, without bleeding (ICD-10 - K21.00) 09/14/2023 Gastro-esophageal reflux disease with esophagitis, without bleeding (ICD-10 - K21.00) PLAN OF TREATMENT Next Appt Details Provider Name:Rm Sinclair , 09/03/2024 02:30:00 PM, [address] [facility], [address], [address],
--- OUTSIDE RECORDS SUMMARY | 2024-06-13 00:14 | XMS_ITS | Data Portability ---
Author Organization [place] [facility] [email or web address], Main Office Address [address] [place] [address] Care Team Providers Care Insurance Claim Representative Name Role Phone JENNY LEBLANC Primary Care Provider [phone] JENNY LEBLANC Referring Provider Assessment Encounter Date [...] with more than half of this and [id number]-[id number] conversation. [email or web address] Not available 06/28/2023 14:01:07 Plan of Treatment Reminders Order Date Submit Date Provider Last Modified By Organization Details Last Modified Time Details Appointments Any 15 2024 10:15A Alfonzo Leblanc MD Not available Not available Not available Medicare Wellness 15 2024 08:30A Alfonzo Leblanc MD Not available Not available Not available Lab lipid panel, serum [address] (Lab), [address] [place], [address], 02/13/2024 08:24:44 vitamin B12, serum [address] (Lab), [address] [place], [address], 02/13/2024 08:24:44 Referral None recorded. Procedures None recorded. Surgeries None recorded. Imaging XR, wrist, 3 or more view 2023 024 [email or web address] s_[facility], [facility], [place], [address], 06/29/2023 08:48:12 Medication Orders trazodone 50 mg tablet 2024 025 [facility] #77784, [address], [place], [place], [id number], 05/13/2024 11:27:51 alendrona te 70 mg tablet [address] [facility] #12427, [address], [place], [place], [id number], 05/13/2024 13:04:[address] 10 mg tablet [address] [facility] #90749, [address], [place], [place], [id number], 09/12/2023 12:28:47 trazodone 50 mg tablet 2023 024 [facility] #38646, [address], [place], [place], [id number], 09/12/2023 11:50:13 alendrona te 70 mg tablet 2023 024 [facility] [place] [address] [facility] Store #75251, [address], [place], [place], [id number], 03/11/2024 07:19:41 lisinopri l 10 mg tablet [address] [facility] [place]64567, [address] [place], [id number], 09/12/2023 12:28:47 amlodipin e 10 mg tablet [address] [facility]75664, [address] [place] [place], [id number], 09/12/2023 12:28:47 omeprazol e 40 mg capsule,d elayed release 2023 024 [facility] [place] [address] Drug Store #66663, [address], [place], [place], [id number], 03/11/2024 07:19:41 citalopra m 20 mg tablet 2023 024 [facility] [place] [address] Drug Store #48230, [address], [place], [place], [id number], 03/11/2024 07:19:39 atorvasta tin 10 mg tablet 2023 024 [facility] [place] [address] [facility] #33080, [address], [place], [place], [id number], 03/11/2024 07:19:40 Patient TargetsNo targets recorded. Patient Instructions Encounter Date Encounter Id Patient Instructions Last Modified By Organization Details Last Modified Time 09/12/2023 [id number] dementia rating scale-2* Not available 09/12/2023 11:50:06 alcohol misuse* Not available 09/12/2023 11:50:06 depression screening* critical access Not available 09/12/2023 11:50:06 multi-dimensiona l health assessment questionnaire* critical access Not available 09/12/2023 11:50:06 Personalized a [facility] Plan and Screening Recommendations Advance Directives - Do you have one? Yes Advance Directives - Do we have your advance directive on file in your health record? Yes Primary Prevention/Interven tion (prevents or decreases the chance of common diseases from occurring) Smoking Risk: Non Smoker Alcohol Misuse Screening: Negative Weight: Appropriate Physical activity: Need more exercise/physical activity Nutrition: Good Fall Risk (screened today): Low Vaccines Pneumococcal: Ordered Recommended today Recommended today, but you have declined No further needed Influenza: Your next one in the fall of this year Chronic Disease Risks Stroke: Low Risk Intermediate [...] or ) Breast Cancer Screening with mammogram: No screening necessary Cervical/Uterine/Ov arley Cancer Screening: No screening necessary Osteoporosis Screening: No screening necessary Date Screening Last Performed: Colon Cancer Screening: Colonoscopy No screening necessary Date Screening Last Performed: __2013___ Eye Disease Screening: Dementia Risk: Low I have no recommendations Depression Screening: Negative Active diagnosis, Continue current treatment plan [email or web address] Not available 09/12/2023 12:03:33 Reason for Referral None Reported. Results Created Date Observation Date Name Description Value Unit Range Abnormal Flag Note LastModifiedBy Organization Detail LastModifiedTime 03/05/2003/05/2024 LIPID PANEL cholesterol 202 mg/dL 140-19 9 high NIH WILLI NSUS RECOM MENDA TION FOR LEVI STERO L: ADULT CHILD LOW RISK: <200 <170 BORDE RLINE : <200- 239 ----- HIGH RISK: >240 >200 Not Available [facility] (Lab) [address] [place], [address], 03/05/2024 12:54:39 03/05/20 24 03/05/2024 LIPID PANEL triglyceride s 174 mg/dL 0-150 high NIH WILLI NSUS REPOR T RECOM MENDA TION FOR TRIGL YCERI FATUMA: ADULT CHILD LOW RISK: <150 ----- BODER LINE: 150-1 99 ----- HIGH RISK: >200 ----- Not Available [facility] (Lab) [address] [place], [address], 03/05/2024 12:54:39 03/05/20 24 03/05/2024 LIPID PANEL HDL cholesterol 50 mg/dL 40- Not Available [facility] (Lab) [address] [place], [address], 03/05/2024 12:54:39 03/05/20 24 03/05/2024 LIPID PANEL [...] WILL NOT BE REPOR ROBERT. Not Available [facility] (Lab) [address] [place], [address], 03/05/2024 12:54:39 03/05/20 24 03/05/2024 VITAM IN B12 (TELLY MELODY ) vb12 206 pg/mL 239-93 1 low Not Available [facility] (Lab) [address] [place], [address], 03/05/2024 13:22:18 03/05/20 24 03/05/2024 FOLAT E, SERUM /PLAS MA folate 15.9 NG/mL 2.76-2 0.0 Not Available [facility] (Lab) [address] [place], [address], 03/05/2024 13:22:24 03/05/20 24 03/06/2024 TSH thyroid-stim ulating hormone 0.771 uIU/m L 0.465- 4.680 Not Available [facility] (Lab) [address] [place], [address], 03/06/2024 14:26:27 06/28/19 24 XR, wrist , 3 or more view No observ ation record ed. [email or web address] s_gmg [facility] [address] [facility], [place], [address], 06/28/2023 13:55:25 01/09/20 24 01/09/2024 MRI, lumba r spine , w/o contr ast No observ ation record ed. [facility] Not Available 2023 18:00:51 03/04/20 24 03/04/2024 andreina warnergr am No observ ation record ed. BARCODE [...] bilat eral [facility] [place] [id number] Patien t Name: KELBY CHAIDEZ IA Access ion #: [id number] Sex: F : 1940 0 Dictat ed By: Nolvia Guzmán Attend ing Physic mohan: LATONYA LEBLANC ER Orderi Physic mohan: LATONYA LEBLANC Exam Date: 2023 10:47 AM Exam Name: [...] findin gs of malign remy. Page [facility] [address] [place] [address] Patien t Name: KELBY CHAIDEZ Access ion #: [id number] Sex: F : 1940 0 Dictat [...] 2023 13:05: 51 PM Page 2 [email or web address] [facility] ([facility]) [address] [place], [address], 05/08/2024 10:38:14 Result Notes None recorded. Problems Name Problem SNOMED Code Status Onset Date Resolution Date Notes Provider Name and Address Organization Details Recorded Time Pain of right wrist 03794677163 9100 Active 2022 Not Available [facility] 4 18:27:45 Closed fracture of distal end of radius 23180676 Active 2022 Not Available [facility] 4 18:27:45 Pain of right knee joint 94325485776 4100 Active 2022 Not Available [facility] 4 18:27:45 Rhinitis 60789307 Active 2022 Not Available [facility] 4 18:27:45 Acid reflux 167901076 Active 2023 Not Available [facility] 4 18:27:45 Depressiv e disorder 93480151 Active 2023 Not Available [facility] 4 18:27:45 Osteoporo sis 67969132 Active 2023 Not Available [facility] 4 18:27:45 Insomnia 780311832 Active 2023 Jenny Leblanc MD [address] [place] [address], [facility] [address], [place], [address] , [facility] 4 11:49:26 Electroca rdiogram abnormal 723880501 Active 2023 Kailey Mcelroy MA null, [place] [facility] 4 17:20:57 Vitamin B12 deficienc y (non anemic) 27790055 Active 2023 Kailey Mcelroy MA null, [place] [facility] 4 14:34:57 Disorder of shoulder 150344417 Completed 08/28/2022 NIRMAL Delgado null, [place] [facility] 3 10:56:21 [place] 62616087136 9104 Active 2021 Not Available [facility] 4 18:27:45 Liver function tests outside reference range 271266656 Active 2019 Not Available [facility] 4 18:27:45 Mammograp hy abnormal 992188054 Active Not Available [facility] 4 18:27:45 Excessive thirst 26800662 Active Not Available [facility] 4 18:27:45 Cobalamin deficienc y 862254280 Active 2021 Not Available [facility] 4 18:27:45 Abdominal pain 62632157 Completed 202108/28/2022 Crissy Sin precious RMA null, [facility] 3 10:56:37 Gastroeso phageal reflux disease 947140881 Active Not Available [facility] 4 18:27:45 Anemia 513775346 Active 2020 Not Available [facility] 4 18:27:45 Osteopeni a 517938766 Active 2020 Not Available [facility] 4 18:27:45 Blood in urine 56067365 Completed 201908/28/2022 Crissy Jonespolina lang RMPolina null, [facility] 3 10:56:31 Vitamin D deficienc y 56903203 Active 2021 Not Available [facility] 4 18:27:45 Sinusitis 14139810 Active Not Available [facility] 4 18:27:45 Osteoarth ritis 695671310 Active Not Available [facility] 4 18:27:45 Anxiety 01966517 Active 2021 Not Available [facility] 4 18:27:45 Hyperlipi demia 38837668 Active Not Available [facility] 4 18:27:45 Essential hypertens ion 27810337 Active Not Available [facility] 4 18:27:45 Osteoporo sis 40614886 Completed Jenny Leblanc MD [address] [facility], [place] [address], [place], [address] , [facility] 4 11:26:29 Chronic kidney disease 313340735 Active 2021 Not Available [facility] 4 18:27:45 Overactiv e urinary bladder 607273283 Active 2020 Not Available [facility] 4 18:27:45 Perniciou s anemia 63941441 Active Not Available [facility] 4 18:27:45 Hiatal hernia 18670919 Active 2021 Not Available [facility] 4 18:27:45 Psoriasis 9130938 Active Not Available [facility] 4 18:27:45 Kidney disease 07058379 Active 2021 Not Available [facility] 4 18:27:45 Kidney stone 42524482 Active 2021 Not Available [facility] 4 18:27:45 Problem Notes None recorded. Procedures Surgical History Date Name Laterality Status Provider Name and Address Organization Details Recorded Time 09/12/19 24 Medicare Wellness CPT Code, subsequent completed Anabel Johnson RN [employer] 09/12/2023 11:40:50 03/27/20 22 Cholecystectomy completed Not Available [facility] 06/28/2022 03:20:17 02/16/20 21 Most Recent Bone Density completed Not Available [facility] 06/28/2022 03:20:15 05/14/19 14 Date of Last Colonoscopy completed Not Available [facility] 06/28/2022 03:20:14 Carpal tunnel surgery completed Not Available [facility] 06/28/2022 03:20:17 appendectomy completed Not Available [facility] 06/28/2022 03:20:17 section completed Not Available [facility] 06/28/2022 03:20:17 Orthopedic Procedure completed Not Available [facility] 06/28/2022 03:20:17 Orthopedic Procedure completed NIRMAL Gomez [place] [facility] 01/09/2023 10:55:01 Imaging Results Imaging Date Name Status LastModified by Organization Details LastModified Time 06/28/2023 XR, wrist, 3 or more view completed [email or web address] [facility] [address], [place], [address], 06/28/2023 13:55:25 01/09/2024 MRI, lumbar spine, w/o contrast completed [facility] Information not available 01/09/2024 18:00:51 03/04/2024 electrocardiogram completed [facility] Informa tion not available 03/04/2024 16:22:00 03/12/2024 US, echocardiogram, transthoracic, complete, w/ color flow completed Information not available 03/19/2024 08:59:28 03/12/2024 myocardial perfusion study w/ ejection fraction (PROC) completed [facility] Information not available 03/13/2024 18:03:58 04/16/2024 MAMMO, screening, digital, bilateral completed [email or web address] [facility] (Imaging) [address] [place], [address], 05/08/2024 10:38:14 Procedure Notes None recorded. Medical Equipment None Reported. Allergies No known drug allergies Medications Name Sig Start Date Stop Date Status Note LastModified by Organization Details LastModified Time amoxicilli n 500 mg capsule 06/17 completed Not Available Not Available Not Available prednisone 10 mg tablet Take by oral route. take 5h2bids, 5v1xpvc, 2e0andk, 7d3pfyc active Not Available Not Available No t [...] suspension for injection in office 05/15 completed [facility]: 0003-04 94-20 Not Available Not Available Not [...] as directed for 30 days. 2023 active [facility] #93092- 0044-00 ABN signed / ds #4 of [...] azelastine 137 mcg (0.1 %) nasal spray [place] 2 sprays twice a day by intranas [...] propionate 50 mcg/actuat ion nasal spray,susp ension [place] 2 sprays every day by intranas al [...] administ ered by the provider 08/03 completed [facility]: 0409-42 76-17 Not Available Not Available Not Available GaviLyte-N 420 gram oral solution active Not Available Not Available Not Available Prolia 60 mg/mL subcutaneo us syringe Inject 1 mL by subcutan eous route. 10/11 completed Not Available Not Available Not Available ropivacain e (PF) 5 mg/mL (0.5 %) injection solution in office 05/15 completed [facility] 19230-0 64-01 Not Available Not Available Not Available cyanocobal ray (vit B-12) 1,000 mcg/mL injection kit 1 ml monthly active Not Available Not Available No t Available Fluzone High-Dose 2019-20 (PF) 180 mcg/0.5 mL intramuscu lar syringe PHARMACI ST ADMINIST ERED IMMUNIZA TION ADMINIST ERED AT TIME OF DISPENSI NG 03/05 completed Not Available Not Available Not Available Fluzone High-Dose Quad (PF) 240 mcg/0.7 mL IM syringe PHARMACI [...] Updated DateTime 4 158.12 cm 23.4 kg/m2 56497.4 2 g 97.4 [degF] 87 /min 96 % 96 % 130 mm[Hg] 70 mm[Hg] Crissy koo [facility] [employer] 11:08:44 Date Recorded Body height Provider Name an d Address Organization Details Last Updated DateTime 06/28/2023 158.12 cm Malena Dove [facility] [employer] [facility] 06/28/2023 12:29:57 Date Recorded Body height Body mass index (BMI) Body weight Body temperature Heart rate Oxygen saturation Oxygen saturation in Arterial blood by Pulse oximetry Systolic blood pressure Diastolic blood pressure Provider Name and Address Organization Details Last Updated DateTime 4 158.12 cm 24.5 kg/m2 58658.2 5 g 98.4 [degF] 74 /min 99 % 99 % 126 mm[Hg] 74 mm[Hg] Haritha Cortes [facility] [employer] [facility] 4 11:26:15 Date Recorded Pain severity - 0-10 verbal numeric rating [Score] - Reported Provider Name and Address Organization Details Last Updated DateTime 09/12/2023 0 Anabel Johnson RN [facility] [employer] [facility] 09/12/2023 11:43:50 Date Recorded Body height Body mass index (BMI) Body weight Body temperature Heart rate Oxygen saturation Oxygen saturation in Arterial blood by Pulse oximetry Systolic blood pressure Diastolic blood pressure Provider Name and Address Organization Details Last Updated DateTime 4 158.12 cm 24.3 kg/m2 70086.3 g 99.4 [degF] 74 /min 98 % 98 % 122 mm[Hg] 72 mm[Hg] Christiana Sterling [place] [facility] [employer] 4 10:43:23 Date Recorded Body weight Body mass index (BMI) Body height Body temperature Heart rate Oxygen saturation Oxygen saturation in Arterial blood by Pulse oximetry Systolic blood pressure Diastolic blood pressure Provider Name and Address Organization Details Last Updated DateTime 5 33032.1 5 g 24.9 kg/m2 158.12 cm 97.6 [degF] 92 /min 97 % 97 % 120 mm[Hg] 70 mm[Hg] NIRMAL Arevalo [place] [facility] [employer] 5 10:52:21 Social History Question Answer Notes LastModified by Organizat ion Details LastModified Time Tobacco Smoking Status Never Smoker Not Available [facility] 06/28/2022 03:06:34 Do You Have An Advance Directive? Yes MIGRATION.89137 [id number] Information not available 06/28/2022 What Is Your Level Of Alcohol Consumption? None MIGRATION.53269 87993 Information not available 06/28/2022 Are You Blind Or Do You Have Difficulty Seeing? No MIGRATION.60304 01949 Information not available 06/28/2022 What Is Your Level Of Caffeine Consumption? Moderate MIGRATION.31422 95574 Information not available 06/28/2022 How Much Tobacco Do You Chew? None MIGRATION.42282 02969 Information not available 06/28/2022 In The 14 Days Before Symptom Onset, Have You Had Close Contact With A Laboratory-confir med COVID-19 While That Case Was Ill? No MIGRATION.12400 42498 Information not available 06/28/2022 In The 14 Days Before Symptom Onset, Have You Had Close Contact With A Person Who Is Under Investigation For COVID-19 While That Person Was Ill? No MIGRATION.13181 31954 Information not available 06/28/2022 Are You Deaf Or Do You Have Serious Difficulty Hearing? No MIGRATION.18138 72401 Information not available 06/28/2022 What Type Of Diet Are You Following? REGULAR MIGRATION.40926 91263 Information not available 06/28/2022 Which Illicit Or Recreational Drugs Have You Used? None MIGRATION.52791 70263 Information not available 06/28/2022 What Is The Highest Grade Or Level Of School You Have Completed Or The Highest Degree You Have Received? XL52312-5 MIGRATION.89360 81615 Information not available 06/28/2022 What Is Your Occupation? Retired MIGRATION.82132 12931 Information not available 06/28/2022 Have There Been Any Changes To Your Family Or Social Situation? No MIGRATION.91021 15702 Information not available 06/28/2022 What Is The Fluoride Status Of Your Home? Unknown MIGRATION.10195 91793 Information not available 06/28/2022 Are There Any Guns Present In Your Home? Yes MIGRATION.95822 83291 Information not available 06/28/2022 Do You Use Insect Repellent Routinely? No MIGRATION.39378 66355 Information not available 06/28/2022 Where Do You Live? SingleLevelHouse MIGRATION.39147 61027 Information not available 06/28/2022 Guns Present In The Home? Yes [email or web address] Information not available 09/12/2023 Are You Able To Care For Yourself? Yes Information not available 09/12/2023 Are You Blind Or Do Yo Have Difficulty Seeing? No [email or web address] Information not available 09/12/2023 Are You Deaf Or Do You Have Serious Difficulty Hearing? No [email or web address] Information not available 09/12/2023 Live Alone Of With Others? Alone [email or web address] Information not available 09/12/2023 Do You Have A Medical Power Of Dial Equipment Engineer? Yes MIGRATION.35261 62877 Information not available 06/28/2022 What Was The Date Of Your Most Recent Tobacco Screening? 09/12/2023 [email or web address] Information not available 09/12/2023 Do You Have Any Pets? No MIGRATION.15450 04926 Information not available 06/28/2022 What Is Your Relationship Status? MIGRATION.96351 42404 Information not available 06/28/2022 Do You Use Your Seat Belt Or Car Seat Routinely? Yes MIGRATION.67094 01351 Information not available 06/28/2022 Do You Have Smoke And Carbon Monoxide Detectors In Your Home? Yes MIGRATION.33061 88761 Information not available 06/28/2022 Are You Passively Exposed To Smoke? No MIGRATION.51318 00075 Information not available 06/28/2022 Are There Any Smokers In Your House? No MIGRATION.79807 63699 Information not available 06/28/2022 Do You Feel Stressed (tense, Restless, Nervous, Or Anxious, Or Unable To Sleep At Night)? [id number] MIGRATION.40142 61222 Information not available 06/28/2022 Do You Use Any Illicit Or Recreational Drugs? No MIGRATION.17467 06328 Information not available 06/28/2022 Do You Use Sunscreen Routinely? No MIGRATION.27090 08055 Information not available 06/28/2022 Have You Recently Traveled Abroad? No MIGRATION.41887 78753 Information not available 06/28/2022 Do You Have Any Dietary Restrictions? No MIGRATION.66161 12745 Information not available 06/28/2022 Do You Or Have You Ever Used Any Other Forms Of Tobacco Or Nicotine? No MIGRATION.82058 28131 Information not available 06/28/2022 Sex: Female Functional Status Question Answer Note LastModified by Organizat [employer] Details LastModified Time Do you have difficulty walking or climbing stairs? No MIGRATION.4662845 026 Information not available 06/28/2022 Do you have transportation difficulties? No MIGRATION.0803665 026 Information not available 06/28/2022 Are you able to walk? YESWOREST MIGRATION.4350186 026 Information not available 06/28/2022 Do you have difficulty doing errands alone? No MIGRATION.4873795 026 Information not available 06/28/2022 Are you able to care for yourself? Yes MIGRATION.4843567 026 Information not available 06/28/2022 Do you have difficulty dressing or bathing? No MIGRATION.6792510 026 Information not available 06/28/2022 What is your exercise level? Moderate [email or web address] Information not available 09/12/2023 Mental Status Question Answer Note LastModified by Organizat ion Details LastModified Time Do you have difficulty concentrating, remembering or making decisions? No MIGRATION.937618528 6 Information not available 06/28/2022 Family History Relationship Description Onset Age of this Age Resolved Age Notes LastModified by Organization Details LastModified Time Father Heart disease MIGRATION.653 [id number] Not available 06/28/2022 03:20:19 Brother Heart disease MIGRATION.093 [id number] Not available 06/28/2022 03:20:20 Brother Essential hypertension MIGRATION.187 6666461 Not available 06/28/2022 03:20:20 Brother Diabetes mellitus MIGRATION.036 8434420 Not available 06/28/2022 03:20:20 Brother Malignant neoplastic disease Colon MIGRATION.493 0371544 Not available 06/28/2022 03:20:20 Brother Depressive disorder MIGRATION.736 [id number] Not available 06/28/2022 03:20:20 Mother Essential hypertension MIGRATION.613 9406262 Not available 06/28/2022 03:20:20 Mother Malignant neoplastic disease Colon MIGRATION.297 3947845 Not available 06/28/2022 03:20:20 Mother Depressive disorder MIGRATION.519 1850949 Not available 06/28/2022 03:20:20 Son Heart disease 39 MIGRATION.117 4616531 Not available 06/28/2022 03:20:20 Medical History No [...] preservative 3 completed Not Available [facility] 06/18/2023 18:27:46 COVID-19, mRNA, LNP-S, PF, 100 mcg/0.5mL dose or 50 mcg/0.25mL dose 1 completed Not Available [facility] 06/18/2023 18:27:46 Influenza, split virus, quadrivalent, preservative 1 completed Not Available [facility] 06/18/2023 18:27:46 SARS-COV-2 (COVID-19) vaccine, UNSPECIFIED 1 completed Not Available [facility] 06/18/2023 18:27:46 SARS-COV-2 (COVID-19) vaccine, UNSPECIFIED 1 completed Not Available [facility] 06/18/2023 18:27:46 Influenza, high-dose, quadrivalent, PF 0 completed Not Available [facility] 06/18/2023 18:27:46 Influenza, split virus, quadrivalent, preservative 7 completed Not Available [facility] 06/18/2023 18:27:46 Influenza, high-dose, trivalent, PF 6 completed Not Available [facility] 06/18/2023 18:27:46 Influenza, high-dose, trivalent, PF 5 completed Not Available [facility] 06/18/2023 18:27:46 Influenza, high-dose, trivalent, PF 9 completed Not Available [facility] 06/18/2023 18:27:46 Influenza, high-dose, trivalent, PF 4 completed Not Available [facility] 06/18/2023 18:27:46 pneumococcal polysaccharide PPV23 8 completed Not Available [facility] 06/18/2023 18:27:46 Pneumococcal conjugate PCV 13 6 completed Not Available [facility] 06/18/2023 18:27:46 Past Encounters Encounter ID Performer Location Encounter Start Date Encounter Closed Date Diagnosis/Indication Diagnosis SNOMED-CT Code Diagnosis ICD10 Code Diagnosis Note [id number] [facility] [address] [address] 08/03/2020 00:00:00 08/03/2020 12:15:59 [id number] [facility] [address] [address] 11/04/2020 00:00:00 11/04/2020 11:01:45 [id number] [facility] [address] [address] 11/08/2020 00:00:00 11/08/2020 10:24:07 [id number] [facility] [address] [address] [place] [address] 11/26/2020 00:00:00 11/26/2020 11:55:47 [id number] [facility] [address] [place] [address] 11/30/2020 00:00:00 11/30/2020 14:11:11 [id number] [facility] [address] [place] [address] 04/05/2021 00:00:00 04/05/2021 11:18:33 [id number] [facility] [address] [place] [address] 08/04/2021 00:00:00 08/04/2021 12:35:40 [id number] [facility] [address] [facility] [place] [place] [address] 12/06/2021 00:00:00 12/06/2021 10:37:02 [id number] [facility] [place] [id number] [facility] [place] [place] [address] 01/10/2022 00:00:00 01/10/2022 15:53:52 [id number] [facility] General Surgery [address] [address] 01/26/2022 00:00:00 01/26/2022 15:44:57 [id number] [facility] General Surgery [address] [address] 03/07/2022 00:00:00 03/07/2022 15:08:30 [id number] [facility] Surgery [address] [address] 04/04/2022 00:00:00 04/04/2022 12:40:24 [id number] [facility] [address] [place] [address]. [place] [address] 04/10/2022 00:00:00 04/10/2022 13:15:23 [id number] Jenny Leblanc MD [facility] [address] [facility] [place] [address] 08/28/2022 10:48:06 08/28/2022 11:44:03 Essential hypertension 66458278 I10 under control Anemia 780436614 D64.9 mild and stable Gastroesop hageal reflux disease 394558088 K21.9 better with meds Hyperlipidemia 98959010 E78.5 under control Osteoarthritis 659642007 M19.90 avoid NSAIDS Overactive urinary bladder 777624900 N32.81 meds did not help Psoriasis 6147322 L40.9 meds PRN Kidney disease 63793164 N08 seeing nephrology , GFR improving, drinking water Cobalamin deficiency 190 538262 E53.8 Not on shots Vitamin D deficiency 347 75883 E55.9 on otc Kidney stone 62991012 N2 0.0 Osteopenia 580777921 M85 .80 on ca/vit d Adult heal th examination 942513810 Z00.00 Colonoscop y- 05/14/2013 , polyp, due but does not want any moreMammog francheska- 03/21, no moreDEXA- ne umovax- 04/09/2018 Prevnar 13- 04/11/2016 FLU- 12/2021 Anxiety 74957294 F41.9 better with meds [id number] Iggy Donohue MD [facility]_[address] [address] 08/31/2022 15:20:37 08/31/2022 16:46:22 Pain of right wrist 8571683558 91533 M25.531 [id number] Iggy Donohue MD [address] [address] 09/07/2022 12:19:51 09/07/2022 13:35:42 Closed fracture of distal end of radius 91677073 S52.501D [id number] CRISTINA Flores [facility] [address] [place] [address] 10/09/2022 14:35:07 10/09/2022 16:10:04 Closed fracture of distal end of radius 06077781 S52.501D [id number] Iggy Donohue MD [address] [address] 11/02/2022 09:53:22 11/02/2022 10:50:26 Pain of right wrist 6950716427 83155 M25.531 [id number] Iggy Donohue MD [facility]_[address] [address] 11/09/2022 09:43:19 11/13/2022 09:46:20 Pain of right knee joint 1510819096 16610 M25.343 [id number] Jenny Leblanc MD [facility] Internal Med [address] [place] [address] 01/09/2023 10:48:27 01/09/2023 11:30:06 Essential hypertension 21222160 I10 under control Anemia 864430801 D64.9 stable Gastroesop hageal reflux disease 887298502 K21.9 better with meds Hyperlipidemia 88184591 E78.5 under control Osteoarthritis 320009682 M19.90 avoid NSAIDS Osteopenia 941348939 M85 .80 on ca/vit d, start meds Overactive urinary bladder 146084560 N32.81 meds did not help Psoriasis 1508781 L40.9 meds PRN Kidney stone 77151216 N2 0.0 no recurrence Anxiety 28733187 F41.9 better with meds Cobalamin deficiency 190 596676 E53.8 Not on shots Vitamin D deficiency 347 20491 E55.9 on otc Kidney disease 50714243 N08 seeing nephrology , GFR improving, Adult heal th examination 642455384 Z00.00 Colonoscop y- 05/14/2013 , polyp, due but does not want any moreMammog francheska- 03/21, no moreDEXA- ne umovax- 04/09/2018 Prevnar - 04/11/2016 FLU- 12/2021 Postmenopausal state 764 98682 Z78.0 Rhinitis 51593774 J00 zyrte [id number] Jenny Leblanc MD [facility] Internal Med [address] [address] 05/15/2023 10:45:39 05/15/2023 11:30:01 Essential hypertension 21509678 I10 under control Anemia 563816880 D64.9 stable Gastroesop hageal reflux disease 567089074 K21.9 better with meds Hyperlipidemia 04852395 E78.5 under control Osteoarthritis 626785298 M19.90 avoid NSAIDS, tylenol Overactive urinary bladder 479652893 N32.81 meds did not help Psoriasis 8251233 L40.9 meds PRN Kidney stone 17237728 N2 0.0 no recurrence Anxiety 51514006 F41.9 better with meds Cobalamin deficiency 190 801615 E53.8 Not on shots, labs next time Vitamin D deficiency 347 97846 E55.9 on otc Kidney disease 16983836 N08 seeing nephrology , GFR stable Adult heal th examination 325375543 Z00.00 Colonoscop y- 05/14/2013 , polyp, due but does not want any moreMammog francheska- 03/20/23DE XA- 02/19/23Pn eumovax- 04/09/2018 Prevnar 13- 04/11/2016 FLU- [facility]- up to date Rhinitis 24854609 J00 zyrtec Depressive disorder 3548 9007 F32.A under control Acid reflux 777057430 K2 1.9 better with meds Osteoporosis 00872624 M8 1.0 on meds [id number] CRISTINA Flores [facility] [address] [address] 06/28/2023 12:19:38 06/28/2023 14:06:53 Pain of right wrist 7497185069 51203 M25.881 [id number] Jenny Leblanc MD [facility] [address] [place] [address] 09/12/2023 11:19:32 09/12/2023 11:53:38 Essential hypertension 74795141 I10 under control Anemia 914717207 D64.9 stable Gastroesop hageal reflux disease 189081762 K21.9 better with meds Hyperlipidemia 09669163 E78.5 under control with meds Osteoarthritis 512669444 M19.90 avoid NSAIDS, tylenol arthritis Overactive urinary bladder 566572256 N32.81 meds did not help Psoriasis 8249711 L40.9 meds PRN Kidney stone 57375412 N2 0.0 no recurrence Anxiety 07064769 F41.9 better with meds Cobalamin deficiency 190 308974 E53.8 Not on shots, labs next time Vitamin D deficiency 347 82068 E55.9 on otc Kidney disease 59004017 N08 GFR stable Adult [facility] examination 241981857 Z00.00 Colonoscop y- 05/14/2013 , polyp, due but does not want any moreMammog francheska- 03/20/23DE XA- 02/19/23Pn eumovax- 04/09/2018 Prevnar 13- 04/11/2016 FLU- 02/2023 [facility]- up to date Rhinitis 18243024 J00 zyrtec Depressive disorder 3548 9007 F32.A under control Acid reflux 630293905 K2 1.9 better with meds Osteoporosis 42017548 M8 1.0 on meds Osteopenia 849766773 M85 .80 on ca/vit d, start meds Screening for disorder 806193093 Z13.9 Insomnia 493818273 G47.0 0 start Trazodone [id number] Jenny Leblanc MD [facility] [address] [place] [address] 01/14/2024 10:33:22 01/14/2024 11:07:27 Essential hypertension 64261104 I10 under control Anemia 092778044 D64.9 stable Gastroesop hageal reflux disease 040077829 K21.9 better with meds Hyperlipidemia 29277682 E78.5 under control Osteoarthritis 945648024 M19.90 avoid NSAIDS, tylenol Overactive urinary bladder 480202600 N32.81 meds did not help Psoriasis 5752766 L40.9 meds PRN Kidney stone 52546291 N2 0.0 no recurrence Anxiety 60589313 F41.9 better with meds Cobalamin deficiency 190 013452 E53.8 Not on shots, Vitamin D deficiency 347 52739 E55.9 on otc Kidney disease 06175783 N08 GFR stable Adult [facility] examination 931549628 Z00.00 Colonoscop y- 05/14/2013 , polyp, due but does not want any moreMammog francheska- 03/20/23DE XA- 02/19/23Pn eumovax- 04/09/2018 Prevnar - 04/11/2016 FLU- 02/2023 [facility]- up to date Rhinitis 33521448 J00 zyrtec Depressive disorder 3548 9007 F32.A under control Osteoporosis 63908318 M8 1.0 on meds Insomnia 767902608 G47.0 0 Trazodone helps [id number] Jenny Leblanc MD [facility] [address] [place] [address] 05/13/2024 10:44:19 05/13/2024 11:29:27 Essential hypertension 90423956 I10 under control Anemia 247604106 D64.9 MILD Gastroesop hageal reflux disease 940930595 K21.9 better with meds Hyperlipidemia 83668384 E78.5 under control Osteoarthritis 590820197 M19.90 avoid NSAIDS, tylenol Overactive urinary bladder 991286296 N32.81 meds did not help Psoriasis 7127283 L40.9 meds PRN Kidney stone 82952297 N2 0.0 no recurrence Anxiety 14082530 F41.9 better with meds Cobalamin deficiency 190 896491 E53.8 on shots, Vitamin D deficiency 347 27930 E55.9 on otc Kidney disease 78052277 N08 GFR improving Adult heal th examination 478308854 Z00.00 Colonoscop y- 05/14/2013 , polyp, due but does not want any moreMammog francheska- 04/16/2024 DEXA- 02/19/23Pn eumovax- 04/09/2018 Prevnar - 04/11/2016- 2023 - [facility]- up to date Rhinitis 74488752 J00 zyrtec Depressive disorder 3548 9007 F32.A under control Osteoporosis 17696993 M8 1.0 on meds Insomnia 336304805 G47.0 0 Trazodone helps Osteopenia 299769953 M85 .80 on ca/vit d, Health Concerns Section Related Observation LastModified by Organization Detai ls LastModified Time None Recorded Concern Status LastModified by Organization Details LastModified Time None Recorded Advance Directives Directive Y: Payers Encounter Date Sequence Insurance Name Policy Number Policy De Leon Covered Member ID De Leon Member ID Guarantor Name 05/15/2023 1 [place] Ashley S Dm [id number] Ashley S Dm 05/15/2023 2 [employer] (MEDICARE SUPPLEMENT) Ashley S Dm [id number] Ashley S Dm 06/28/2023 1 [place] Ashley S Dm [id number] Ashley S Dm 06/28/2023 2 [employer] (MEDICARE SUPPLEMENT) Ashley S Dm [id number] Ashley S Dm 09/12/2023 1 [place] Ashley S Dm [id number] Ashley S Dm 09/12/2023 2 [employer] (MEDICARE SUPPLEMENT) Ashley S Dm [id number] Ashley S Dm 01/14/2024 1 [place] Ashley S Dm [id number] Ashley S Dm 01/14/2024 2 [employer] (MEDICARE SUPPLEMENT) Ashley S Dm [id number] Ashley S Dm 05/13/2024 1 [place] Ashley S Dm [id number] Ashley S Dm 05/13/2024 2 [employer] (MEDICARE SUPPLEMENT) Ashley S Dm [id number] Ashley S Dm Notes Date Note Type [...] no flare Jenny Leblanc MD [address], [place], [address], [employer] 05/15/2023 11:30:07 09/12/2023 text/html Pt is here [...] no flare Jenny Leblanc MD [address], [place], [address], [employer] 09/12/2023 12:51:22 01/14/2024 text/html Pt is here [...] Psoriasis- no flare Jenny Leblanc MD [address] [facility], [address], [place], [address], [facility] [email or web address] 01/14/2024 11:07:03 05/13/2024 text/html Pt is here [...] , now 48 (12/06/23), seeing nephrology dr Yipactive bladder- tried meds without help, has nocturia [...] Psoriasis- no flare Jenny Leblanc MD [address] [facility], [facility] [address], [place], [address], [facility] 05/13/2024 11:28:15 OBGyn Episode No OBEpisode recorded.
--- OUTSIDE RECORDS SUMMARY | 2024-06-13 00:14 | XMS_ITS | Referral Summary ---
Author Organization [facility] Address [address] [place] [address] Care Team Providers Care Wave Guide Assembler Name Role Phone Rm Sinclair MD Unavailable Source Comments [facility],non-owned Affiliates and Associated Physician Practices is amultiple site organization consisting of ambulatory clinics and hospital sitesin [place], [place], [place] and [place]. This disclosure is being madepursuant to the Care Everywhere program and may not contain all information available regarding this patient. Last updated 18.[facility] [employer] Allergies No known active allergies Medications * [...] Active vitamin D, ergocalciferol, (Drisdol) 1.25 MG (27106 UT) capsule Take 1 (one) capsule by [...] Comments Blood Pressure 154/71 05/03/2022 1:25 PM EARLY LEARNING TEACHER Pulse 80 05/03/2022 1:25 PM EARLY LEARNING TEACHER Temperature 36.5 C (97.7 F) 05/03/2022 1:06 PM EARLY LEARNING TEACHER Respiratory Rate 16 05/03/2022 1:25 PM EARLY LEARNING TEACHER Oxygen Saturation 98% 05/03/2022 1:25 PM EARLY LEARNING TEACHER Inhaled Oxygen Concentration - - Weight 54 kg (119 lb) 05/03/2022 9:55 AM EARLY LEARNING TEACHER Height 157.5 cm (5' 2 ) 05/03/2022 9:55 AM EARLY LEARNING TEACHER Body Mass Index 21.77 05/03/2022 9:55 AM EARLY LEARNING TEACHER Functional Status Functional Status Response Date of [...] on file Medical Devices Explanted Type Area Director Of Category Management Device Identifier Shelf Expiration Date Model / Serial / Lot Stent Biliary 10fr 7cm Cntr Bnd Temp Rap - [id number] Implanted:Qty: 1 on 03/01/2022 by Tam Moncada MD at [facility] Explanted:Qty: 1 on 05/03/2022 by Tam Moncada MD at [facility] N/A: Bile Duct [employer] 11/08/2023 [id number] / [id number] / [id number] Care Teams Wave Guide Assembler Relationship Specialty [place] [address] [place] [address] PCP - [facility] 02/29/24
--- OUTSIDE RECORDS SUMMARY | 2024-06-13 00:15 | XMS_ITS ---
Author Organization [facility] Address [address] [address] [place] [address] Care Team Providers Care Hand Painter Name Role Phone Rm Sinclair Unavailable [phone] MEDICATIONS Medication SIG (Take, Route, Frequency, Duration) [...] Once a day Active Ergocalciferol 1.25 MG (58101 UT) 1 capsule Orally Once a week for 90 day(s) 11/06/2023 2024 Active Vitamin D (Ergocalciferol) 1.25 MG (87949 UT) TAKE 1 CAPSULE BY MOUTH 1 TIME A MONTH for 90 Active Calcium 600 MG 1 tablet with meals Orally Twice a day Active Citalopram Hydrobromide 20 MG 1 tablet Orally Once a day Active Encounters Encounter Location Date Provider Diagnosis [place] [facility] [address] [facility] [address] [place] [address] 03/14/2024 Rm Sinclair Chronic kidney disease, stage [...] 09/03/2024 02:30:00 PM, [address] [facility], [facility] [address], [address], Progress Notes * LUKAS CAPPSDOB: [birth year] (83 yo F)Acc No.[id number]:03/14/2024 Progress Notes Patient: LUKAS CAPPS Provider: MD ELIZABETH, F.A.C.P, F.A.S.N. :1940 Age:83 Y Sex:Female Date:03/14/2024 Address:[address] [place] [address] Subjective: * Chief Complaints: * * Medical History: * Medications: Taking Calcium 600 MG Tablet 1 tablet with [...] OTHER DAY , Taking Ergocalciferol 1.25 MG (96723 UT) Capsule 1 capsule Orally Once a week , stop date 2024, Taking Vitamin D (Ergocalciferol) 1.25 MG (32311 UT) Capsule TAKE 1 CAPSULE BY MOUTH 1 TIME A MONTH Objective: Assessment: * Assessment: 1. Chronic kidney disease, stage 3a - N18.31 (Primary) 2. Essential hypertension - I10 3. Anxiety disorder, unspecified - F41.9 4. Gastro-esophageal reflux disease with esophagitis, without bleeding - K21.00 Plan: * Treatment: * Billing Information: * Visit Code: 58683 Office Visit, Est Pt., Level 4. * Procedure Codes: * CARDIOGRAPHER Sign off status: Pending * Provider: MD ELIZABETH, F.A.C.P, F.A.S.N. Date: 03/14/2024
--- OUTSIDE RECORDS SUMMARY | 2024-06-13 00:15 | XMS_ITS ---
Author Organization [facility] Address [address] [place] [address] Care Team Providers Care Bread Room Hand Name Role Phone Rm Sincalir Unavailable [phone] PROBLEMS Problem Type ICD Code Onset Dates Problem Status W/U Status Risk SNOMED Code Notes Problem Type 2 diabetes mellitus with diabetic chronic kidney disease (E11.22) Active confirmed Diabetic renal disease (902868980) Encounters Encounter Location Date Provider Diagnosis [place] [facility] [address] [facility] [address] [place] [address] 06/11/2024 Rm Sinclair Chronic kidney disease, stage 3a N18.31 ; Anxiety disorder, unspecified F41.9 ; Essential hypertension I10 ; Type 2 diabetes mellitus with diabetic chronic kidney disease E11.22 and Hyperkalemia E87.5 ASSESSMENTS Encounter Date Diagnosis Assessment Notes Treatment Notes Treatment Clinical Notes Section Notes 06/11/2024 Chronic kidney disease, stage 3a (ICD-10 - N18.31) 06/11/2024 Anxiety disorder, unspecified (ICD-10 - F41.9) 06/11/2024 Essential hypertension (ICD-10 - I10) 06/11/2024 Type 2 diabetes mellitus with diabetic chronic kidney disease (ICD-10 - E11.22) 06/11/2024 Hyperkalemia (ICD-10 - E87.5) PLAN OF TREATMENT Next Appt Details Provider Name:Rm Yahir , 09/03/2024 02:30:00 PM, [address] [facility], [facility] [address], [place], [address], Progress Notes * GÉNESISKELBY ONEALNASDOB: 3 (83 yo F)Acc No.[id number]:06/11/2024 Progress Notes Patient: LUKAS CAPPS Provider: MD ELIZABETH, F.A.C.P, F.A.S.N. :1940 Age:83 Y Sex:Female Date:06/11/2024 Address:[facility] [address] [address] Subjective: * Chief Complaints: * * Medical History: Objective: Assessment: * Assessment: 1. Chronic kidney disease, stage 3a - N18.31 (Primary) 2. Anxiety disorder, unspecified - F41.9 3. Essential hypertension - I10 4. 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 Hyperkalemia - E87.5 Plan: * Treatment: * Billing Information: * Visit Code: 47727 Office Visit, Est Pt., Level 4. * Procedure Codes: * F LIFESTYLE OFFICER Sign off status: Pending * Provider: MD ELIZABETH, Aleyda, F.A.S.N. Date: 06/11/2024
[2024-06-13] MEDS: LACTATED RINGERS 1,000 ML 30 ML IV CONT (06:30)
--- NOTE | 2024-06-13 06:37 | WPDANESEPPF ---
Anes - Initial Pre Proc Eval Procedure: Operation Date: 06/13/24 07:30 Proposed Procedures p L 3-4 Bilateral Lumbar Laminectomy and Medial Facetectomy - Jose Gómez MD Date/Time: 06/13/24 06:37 Surgeon: Jose Gómez MD Pre Op Diagnosis: Lumbar Stenosis with Neurogeneric Claudication Patient Data Age: 83 Gender: F Height: 1.57 m Weight: 63.2 kg Last Vital Signs Temp 36.6 C 05/28/24 12:08 Pulse 98 05/28/24 12:08 Resp 16 05/28/24 12:08 BP 151/75 H 05/28/24 12:08 Pulse Ox 98 05/28/24 12:08 O2 Del Method Room Air 05/28/24 12:08 Allergies Allergy/AdvReac Type Severity Reaction Status Date / Time No Known Allergies Allergy Verified 05/28/24 12:05 Home Medications ?Medication ?Instructions ?Recorded ?Confirmed ?Type alendronate 70 mg tablet 70 mg PO WEEKLY 10/17/23 02/28/24 History amlodipine 10 mg tablet 10 mg PO DAILY 10/17/23 02/28/24 History atorvastatin 10 mg tablet 10 mg PO DAILY 10/17/23 02/28/24 History calcitriol 0.25 mcg capsule 0.25 mcg PO EVERY OTHER DAY 10/17/23 02/28/24 History citalopram 20 mg tablet 20 mg PO DAILY 10/17/23 02/28/24 History ergocalciferol (vitamin D2) 1,250 1,250 mcg PO MONTHLY 10/17/23 02/28/24 History mcg (50,000 unit) capsule lisinopril 10 mg tablet 10 mg PO DAILY 10/17/23 02/28/24 History omeprazole 40 mg capsule,delayed 40 mg PO PRN PRN Heartburn 10/17/23 02/28/24 History release trazodone 50 mg tablet 50 mg PO QHS PRN Insomnia 10/17/23 02/28/24 History Patient hx anesthesia problems: none Family hx anesthesia problems: none Results Review: All pre-operative results and documents have been reviewed as part of the pre-operative evaluation. [facility] Past Medical History Medical History Lumbar stenosis with neurogenic claudication Osteoporosis Allergies High cholesterol Hypertension Kidney disease Surgical History Surgical History History of hand surgery History of carpal tunnel release of both wrists History of appendectomy History of History of cholecystectomy Family History Family History Father Acute myocardial infarction Mother No problems noted. Sibling Heart disease Other Hypertension Social History Social History Smoking status: Never smoker Second hand tobacco smoke exposure: No Alcohol intake: never Substance use: never Substance use type: does not use Do You Feel Safe in your Home?: Yes Lack of Transportation: No Lack of Food: Never True Current Housing: I Have Housing Concerned About Future Housing: No Difficulty Paying Gas/Electric Bills: No Difficulty Paying for Meds: No Currently Unemployed: No Education: High School Diploma/GED Difficulty w/ Childcare or Family Care: No Living arrangements: alone Occupation/Education: retired 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 Gender identity (if verbalized by the patient): Female Spiritual care concerns: No Anes - Eval Final PreProcedure Day of Procedure 06/13/24 06:37 Patient weight: normal Heart: regular rate and rhythm Lungs: clear to auscultation Airway: Mallampati scale class II Neurological: alert and oriented Last oral intake: >/= 8 hours ASA classification: III Emergent: no Anesthetic plan: proceed Anesthesia type and monitoring: general ETT and standard monitoring Results Review: All pre-operative results and documents have been reviewed as part of the pre-operative evaluation. Informed Consent: The patient's anesthetic plan and its attendant risks and benefits were discussed with the patient/family/POA. Questions were solicited and answers provided to the satisfaction of the patient/family/POA.
--- NOTE | 2024-06-13 07:09 | WPDHPUPDATE1 ---
History and Physical Update Update Date/Time: 06/13/24 07:09 History and Physical has been reviewed, including an updated exam of the patient. There are NO changes in the patient's condition. Risks, benefits, and alternatives have been discussed and questions answered. Patient agrees to proceed with procedure.
--- NOTE | 2024-06-13 07:10 | P.HP_ITS ---
H&P: HPI History of Present Illness Date/Time: 06/13/24 07:10 Chief Complaint: This is an 83 year old healthy female who presents with acute on chronic low back pain with pain down her buttocks and bilateral legs. She explains the pain starts in her lower back and radiates to the bottom of her buttock area and she feels that she can not get to do her daily activities without significant pain. She notes that her pain can get up to an 8/10 with activity she went to physical therapy but feels that this made her pain worse. She has not seen Pain management, she really wants to get out of pain she feels like she has suffered in terms of her quality of life is now here to see me for surgical evaluation. She denies any numbness tingling in her groin or saddle anesthesia or weakness. She was found to have L3/4 lumbar stenosis and is now here for an L3/4 bilateral lumbar laminectomy and bilateral medial facetectomy. [facility] Past Medical History Medical History Lumbar stenosis with neurogenic claudication Osteoporosis Allergies High cholesterol Hypertension Kidney disease Surgical History Surgical History History of hand surgery History of carpal tunnel release of both wrists History of appendectomy History of History of cholecystectomy Family History Family History Father Acute myocardial infarction Mother No problems noted. Sibling Heart disease Other Hypertension Social History Social History Smoking status: Never smoker Second hand tobacco smoke exposure: No Alcohol intake: never Substance use: never Substance use type: does not use Do You Feel Safe in your Home?: Yes Lack of Transportation: No Lack of Food: Never True Current Housing: I Have Housing Concerned About Future Housing: No Difficulty Paying Gas/Electric Bills: No Difficulty Paying for Meds: No Currently Unemployed: No Education: High School Diploma/GED Difficulty w/ Childcare or Family Care: No Living arrangements: alone Occupation/Education: retired 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 Gender identity (if verbalized by the patient): Female Spiritual care concerns: No Meds Home Medications and Allergies Home Medications ?Medication ?Instructions ?Recorded ?Confirmed ?Type alendronate 70 mg tablet 70 mg PO WEEKLY 10/17/23 02/28/24 History amlodipine 10 mg tablet 10 mg PO DAILY 10/17/23 06/13/24 History atorvastatin 10 mg tablet 10 mg PO DAILY 10/17/23 02/28/24 History calcitriol 0.25 mcg capsule 0.25 mcg PO EVERY OTHER DAY 10/17/23 02/28/24 History citalopram 20 mg tablet 20 mg PO DAILY 10/17/23 06/13/24 History ergocalciferol (vitamin D2) 1,250 1,250 mcg PO MONTHLY 10/17/23 02/28/24 History mcg (50,000 unit) capsule lisinopril 10 mg tablet 10 mg PO DAILY 10/17/23 02/28/24 History omeprazole 40 mg capsule,delayed 40 mg PO PRN PRN Heartburn 10/17/23 02/28/24 History release trazodone 50 mg tablet 50 mg PO QHS PRN Insomnia 10/17/23 02/28/24 History Allergies Allergy/AdvReac Type Severity Reaction Status Date / Time No Known Allergies Allergy Verified 05/28/24 12:05 Exam Narrative: awake alert no acute distress MAEW 5/ including IP/Q/H/PF/DF/EHL Assessment and Plan Assessment and plan (1) Lumbar stenosis with neurogenic claudication: Code(s): M48.062 - Spinal stenosis, lumbar region with neurogenic claudication Status: Acute Assessment and Plan: This is an 83 year old healthy female who presents with acute on chronic low back pain with pain down her buttocks and bilateral legs found to have L3/4 lumbar stenosis here for an elective L3/4 bilateral lumbar laminectomy and bilateral medial facetectomy.
[2024-06-13] MEDS: ceFAZolin 2 GM/D5W 50 ML 2 GM/50 ML BAG IVPB (07:25)
[2024-06-13] MEDS: BUPIVACAINE/EPINEPHRINE 0.5% 50 ML VIAL INFILTRATE (08:08)
--- NOTE | 2024-06-13 08:55 | P.OP_ITS ---
Procedure Note - Detailed Date of Procedure 06/13/24 Pre-op Diagnosis Lumbar Stenosis with Neurogenic Claudication Post-op Diagnosis Same Procedure Performed L3-4 bilateral lumbar laminectomy and bilateral medial facetectomy Surgeon Jose Gómez MD Anesthesia General Indications Neurogenic claudication Findings Significant facet hypertrophy lumbar stenosis Description of Procedure The patient was brought to the operating and turned over Anesthesia for intubation placement of all lines. Once this was complete the patient was positioned prone on a Ray frame. All bony prominences were padded and the p atient was prepped and draped in the usual sterile fashion. Final time-out was performed. Fluoroscopy was brought in at this point to confirm the correct level of L3, L4. This was performed by placing a spinal needle sterilely at the L3-4 disc space and confirming on lateral x-ray. Once this was complete local anesthetic was injected along a linear incision over the L3-4 area. A midline incision was then made. Bovie electrocautery was used to open the fascia. Retractors were placed and the muscle was from the spinous process. The periosteal E. Hemostasis was obtained at this point we brought fluoroscopy back in and took another x-ray with an upgoing curette underneath the lamina of L3 to confirm the correct level. Once this was complete the microscope was brought in the L3-4 area was again marked and the instrument was removed from the space. At this point I used a rongeur to remove majority of the spinous process and some of the hypertrophied facet. Once this was complete I was able to use a upgoing curette to create a plane beneath the spinous process and the underlying dura. Additional bone was removed. I then used a upgoing curette to create a plane between the dura itself and hypertrophied medial facet joints. I then used a variety of Kerrisons to remove this. At this point the spinal sac was now visible where as previously it was not. The lateral recess was opened and a [place] 4 passed freely laterally. Hemostasis obtained a broad fluoroscopy again 3rd time using 2 nerve hooks at the rostral caudal extent of the laminectomy site to confirm that I decompressed the L3-4 interspace. Hemostasis was then obtained irrigation was was added to wash out the wound. At this point there was no additional bleeding we began closure in layers. The skin was closed with Steri-Strips and Mastisol as a final layer. Patient was then flipped prone turned over to Anesthesia for extubation. Estimated Blood Loss 50 Complications None Condition Stable Disposition PACU
== END 2024-06-13 10:14 | disposition home or self-care (01) ==
PROVIDERS: PCP Internal Medicine; Visit Provider Neurological Surgery
PROC: (CPT 63005; principal; 2024-06-13 07:30)
DX: M48.062 Spinal stenosis, lumbar region with neurogenic claudication (principal)
CPT/HCPCS: 63047; 99199; J0330; J0690; J1100; J2003; J2004; J2405; J2704; J3010; J7120

== ENCOUNTER 2024-11-26 10:01 | Outpatient (CLI) | payer MEDICARE, SELFPAY ==
--- NOTE | ~2024-11-26 | XR_ITS ---
Left Hand Technique: PA, oblique, and lateral views were obtained. Clinical History: Pain Findings: No acute fracture or dislocation is seen. There is advanced generative change of the first CMC joint. There is moderate degenerative change of the interphalangeal joint of the thumb. There is mild to moderate degenerative change of the first through third MCP joints. There are minimal degener ative changes of the interphalangeal joints of the fingers otherwise.. Soft tissues are unremarkable. Impression: Polyarticular osteoarthritis, as detailed above. Reviewed, dictated and finalized at location M. Impression: Polyarticular osteoarthritis, as detailed above.
--- OUTSIDE RECORDS SUMMARY | 2024-11-26 10:33 | XMS_ITS | Patient Health Record ---
Author Organization [facility] Address [address] [facility] [address] [place] [address] Care Team Providers Care Glass Calibrator Name Role Phone Rm Sinclair Unavailable [phone] Reason For Referral No Information Medications Medication SIG (Take, Route, Frequency, Duration) Notes Start Date End Date Status Atorvastatin Calcium 10 MG 1 tablet Oral ly Once a day Active Diclofenac Sodium 75 MG 1 tablet as need ed Orally Twice a day Active Calcitriol 0.25 MCG 1 capsule Orally Onc e a day; Duration: 90 days 11/12/2024 11/07/2025 Active amLODIPine Besylate 10 MG 1 tablet Orall y Once a day Active Lisinopril 10 MG 1 tablet Orally Once a day Active Omeprazole 40 MG 1 capsule 30 minutes before morning meal Orally Once a day Active Vitamin D (Ergocalciferol) 1.25 MG (04414 UT) TAKE 1 CAPSULE BY MOUTH 1 TIME A MONTH; Duration: 90 Active Calcium 600 MG 1 tablet with meals Orally Twice a day Active Citalopram Hydrobromide 20 MG 1 tablet Orally Once a day Active Problems Problem Type SNOMED Code ICD Code Onset Dates Problem Status W/U Status Risk Notes Problem Diabetic renal disease (849245401) Type 2 diabetes mellitus with diabetic chronic kidney disease (E11.22) Active confirmed Problem Anxiety disorder (742991860) Anxiety disorder, unspecified (F41.9) Active confirmed Problem Insomnia (022578667) Insomnia, unspecified (G47.00) Active confirmed Problem Pain of knee region (finding) (0540955909) Pain in unspecified knee (M25.569) Active confirmed Problem Acute renal failure syndrome (81313457) Acute kidney failure, unspecified (N17.9) Active confirmed Problem Essential hypertension (93539796) Essential hypertension (I10) Active confirmed Problem Gastroesophageal reflux disease with esophagitis (disorder) (309980076) Gastro-esophage al reflux disease with esophagitis, without bleeding (K21.00) Active confirmed Problem Chronic kidney disease stage 3B (disorder) (435350055) Chronic kidney disease, stage 3b (N18.32) Active confirmed Encounters Encounter Location Date Provider Diagnosis [facility] [address] [place] [address] 12/14/2023 Rm Sinclair Chronic kidney disease, stage 3a N18.31 ; Essential hypertension I10 ; Anemia, unspecified D64.9 ; Anxiety disorder, unspecified F41.9 and Gastro-esophageal reflux disease with esophagitis, without bleeding K21.00 [facility] [address] [place] [address] 03/14/2024 Rm Sinclair Chronic kidney disease, stage 3a N18.31 ; Essential hypertension I10 ; Anxiety disorder, unspecified F41.9 and Gastro-esophageal reflux disease with esophagitis, without bleeding K21.00 [facility] [address] [place] [address] 06/11/2024 Rm Sinclair Chronic kidney disease, stage 3a N18.31 ; Anxiety disorder, unspecified F41.9 ; Essential hypertension I10 ; Type 2 diabetes mellitus with diabetic chronic kidney disease E11.22 and Hyperkalemia E87.5 [facility] [address] [place] [address] 09/03/2024 Rm Sinclair Chronic kidney disease, stage 3b N18.32 ; Essential hypertension I10 ; Anxiety disorder, unspecified F41.9 ; Gastro-esophageal reflux disease with esophagitis, without bleeding K21.00 ; Type 2 diabetes mellitus with diabetic chronic kidney disease E11.22 ; Insomnia, unspecified G47.00 ; Pain in unspecified knee M25.569 and Acute kidney failure, unspecified N17.9 [facility] [address] [place] [address] 06/11/2024 Rm [facility] [address] [place] [address] 11/12/2024 Rm Sinclair [facility] [address] [place] [address] 11/12/2024 Rm Sinclair [facility] [address] [place] [address] 11/12/2024 Rm Sinclair Assessments Encounter Date Diagnosis (ICD Code) Assessment Notes Treatment Notes Treatment Clinical Notes Section Notes 12/14/2023 Essential hypertension (ICD-10 - I10) 12/14/2023 Chronic kidney disease, stage 3a (ICD-10 - N18.31) 03/14/2024 Chronic kidney disease, stage 3a (ICD-10 - N18.31) 06/11/2024 Anxiety disorder, unspecified (ICD-10 - F41.9) 06/11/2024 Chronic kidney disease, stage 3a (ICD-10 - N18.31) 09/03/2024 Chronic kidney disease, stage 3b (ICD-10 - N18.32) 09/03/2024 Essential hypertension (ICD-10 - I10) 06/11/2024 Essential hypertension (ICD-10 - I10) 03/14/2024 Essential hypertension (ICD-10 - I10) 12/14/2023 Anemia, unspecified (ICD-10 - D64.9) 12/14/2023 Anxiety disorder, unspecified (ICD-10 - F41.9) 03/14/2024 Anxiety disorder, unspecified (ICD-10 - F41.9) 06/11/2024 Type 2 diabetes mellitus with diabetic chronic kidney disease (ICD-10 - E11.22) 09/03/2024 Anxiety disorder, unspecified (ICD-10 - F41.9) 09/03/2024 Gastro-esophageal reflux disease with esophagitis, without bleeding (ICD-10 - K21.00) 06/11/2024 Hyperkalemia (ICD-10 - E87.5) 03/14/2024 Gastro-esophageal reflux disease with esophagitis, without bleeding (ICD-10 - K21.00) 12/14/2023 Gastro-esophageal reflux disease with esophagitis, without bleeding (ICD-10 - K21.00) 09/03/2024 Type 2 diabetes mellitus with diabetic chronic kidney disease (ICD-10 - E11.22) 09/03/2024 Insomnia, unspecified (ICD-10 - G47.00) 09/03/2024 Pain in unspecified knee (ICD-10 - M25.569) 09/03/2024 Acute kidney failure, unspecified (ICD-10 - N17.9) Plan Of Treatment Next Appt Details Provider Name:Rm Sinclair , 12/03/2024 02:45:00 PM, [address], [address], [place], [address],
--- OUTSIDE RECORDS SUMMARY | 2024-11-26 10:33 | XMS_ITS ---
Author Organization [facility] Address [address] [address] [place] [address] Care Team Providers Care Vp Digital Marketing Social Media And Crm Name Role Phone Rm Sinclair Unavailable [phone] Medications Medication SIG (Take, Route, Frequency, Duration) [...] 1 CASULE BY AYAZ TH EVERY OTHER DAY; Duration: 180 Active Atorvastatin Calcium 10 MG 1 tablet Oral ly Once a day Active Ergocalciferol 1.25 MG (05151 UT) 1 capsule Orally Once a week; Duration: 90 day(s) 11/06/2023 2024 Active Vitamin D (Ergocalciferol) 1.25 MG (36348 UT) TAKE 1 CAPSULE BY MOUTH 1 TIME A MONTH; Duration: 90 Active Calcium 600 MG 1 tablet with meals Orally Twice a day Active Citalopram Hydrobromide 20 MG 1 tablet Orally Once a day Active Encounters Encounter Location Date Provider Diagnosis [facility] [address] [facility] [address] [place] [address] 03/14/2024 Rm Sinclair Chronic kidney disease, stage 3a N18.31 ; Essential hypertension I10 ; Anxiety disorder, unspecified F41.9 and Gastro-esophageal reflux disease with esophagitis, without bleeding K21.00 Assessments Encounter Date Diagnosis (ICD Code) Assessment Notes Treatment Notes Treatment Clinical Notes Section Notes 03/14/2024 Chronic kidney disease, stage 3a (ICD-10 - N18.31) 03/14/2024 Essential hypertension (ICD-10 - I10) 03/14/2024 Anxiety disorder, unspecified (ICD-10 - F41.9) 03/14/2024 Gastro-esophageal reflux disease with esophagitis, without bleeding (ICD-10 - K21.00) Plan Of Treatment Next Appt Details Provider Name:Rm Sinclair , 12/03/2024 02:45:00 PM, [address], [facility] [address], [place], [address], Progress Notes * LUKAS CAPPSDOB: 3 (84 yo F)Acc No.[id number]:03/14/2024 Progress Notes Patient: LUKAS MARTINEZ Provider: Vale MILNER MD, F.A.C.P, F.A.S.N. :1940 A ge:83 Y S ex:Female Date:03/14/2024 Address:[address] [place] [address] [place] [address] Subjective: * Chief Complaints: * * Medical History: * Medications: T aking Calcium 600 MG Tablet 1 tablet with [...] OTHER DAY , Taking Ergocalciferol 1.25 MG (65828 UT) Capsule 1 capsule Orally Once a week , stop date 2024, Taking Vitamin D (Ergocalciferol) 1.25 MG (50145 UT) Capsule TAKE 1 CAPSULE BY MOUTH 1 TIME A MONTH Objective: * Vitals: Assessment: * Assessment: 1. C hronic kidney disease, stage 3a - N18.31 (Primary) 2 . E ssential hypertension - I10 3 . A nxiety disorder, unspecified - F41.9 4 .?Gastro-esophageal reflux disease with esophagitis, without bleeding - K21.00 Plan: * Treatment: * Billing Information: * Visit Code: 87816 Office Visit, Est Pt., Level 4. * Procedure Codes: * Electronic signature of Omid Sinclair MD on 11/26/2024 at 10:33 AM CDT Sign off status: Pending * Provider: Vale MILNER MD, F.A.C.P, F.A.S.N. Date: 1 05/14/2023 Generated for Printing/Faxing/eTransmitting on: 0 11/26/2024 10:33 AM CDT
--- OUTSIDE RECORDS SUMMARY | 2024-11-26 10:33 | XMS_ITS ---
Author Organization [facility] Address [address] [place] [address] Care Team Providers Care Spooling Supervisor Name Role Phone SinclairFrankiRm Unavailable [phone] Problems Problem Type SNOMED Code ICD Code Onset Dates Problem Status W/U Status Risk Notes Problem Chronic kidney disease stage 3B (disorder) (034332448) Chronic kidney disease, stage 3b (N18.32) Active confirmed Problem Insomnia (937060141) Insomnia, unspecified (G47.00) Active confirmed Problem Pain of knee region (finding) (2108305225) Pain in unspecified knee (M25.569) Active confirmed Problem Acute renal failure syndrome (88334563) Acute kidney failure, unspecified (N17.9) Active confirmed Encounters Encounter Location Date Provider Diagnosis [facility] [address] [facility] [address] [place] [address] 09/03/2024 Rm Sinclair Chronic kidney disease, stage 3b N18.32 ; Essential hypertension I10 ; Anxiety disorder, unspecified F41.9 ; Gastro-esophageal reflux disease with esophagitis, without bleeding K21.00 ; Type 2 diabetes mellitus with diabetic chronic kidney disease E11.22 ; Insomnia, unspecified G47.00 ; Pain in unspecified knee M25.569 and Acute kidney failure, unspecified N17.9 Assessments Encounter Date Diagnosis (ICD Code) Assessment Notes Treatment Notes Treatment Clinical Notes Section Notes 09/03/2024 Chronic kidney disease, stage 3b (ICD-10 - N18.32) 09/03/2024 Essential hypertension (ICD-10 - I10) 09/03/2024 Anxiety disorder, unspecified (ICD-10 - F41.9) [...] Name:Rm Sinclair , 12/03/2024 02:45:00 PM, [address] [facility], [facility] [address], [place], [place], [facility], Progress Notes * LUKAS CAPPSDOB: 3 (84 yo F)Acc No.[id number]:09/03/2024 Progress Notes Patient: LUKAS MARTINEZ Provider: Vale MILNER MD, F.A.C.P, F.A.S.N. :1940 A ge:84 Y S ex:Female Date:09/03/2024 Address:[address] [address] Subjective: * Chief Complaints: * * Medical History: Objective: * Vitals: Assessment: * Assessment: 1. C hronic kidney disease, stage 3b - N18.32 (Primary) 2 . E ssential hypertension - I10 3 . A nxiety disorder, unspecified - F41.9 4 .?Gastro-esophageal reflux disease with esophagitis, without bleeding - K21.00 5 . Type 2 diabetes mellitus with diabetic chronic kidney disease - E11.22 6 . I nsomnia, unspecified - G47.00 7 . P ain in unspecified knee - M25.569 ? 8 . A cute kidney failure, unspecified - N17.9 Plan: * Treatment: * Billing Information: * Visit Code: 74430 Office Visit, Est Pt., Level 4. * Procedure Codes: * Electronic signature of Omid Sinclair MD on 11/26/2024 at 10:33 AM CDT Sign off status: Pending * Provider: Vale MILNER MD, F.A.C.P, F.A.S.N. Date: 0 09/03/2024 Generated for Printing/Faxing/eTransmitting on: 0 11/26/2024 10:33 AM CDT
--- OUTSIDE RECORDS SUMMARY | 2024-11-26 10:33 | XMS_ITS | Clinical Summary ---
Author Organization [facility] Address [address] [facility] [place] [address] Care Team Providers Care Well Logging Captain Mud Analysis Name Role Phone Charlie Leblanc MD Unavailable [phone] Source Comments [facility],non-owned Affiliates and Associated Physician Practices is amultiple site organization consisting of ambulatory clinics and hospital sitesin [place], [place], [place] and [place]. This disclosure is being madepursuant to the Care Everywhere program and may not contain all information available regarding this patient. Last updated 18.[facility] activ8 Intelligence Allergies No known active allergies Medications * Be aware that medications may not be up to date on this document. Alwaysverify current medications with the patient. amLODIPine (Norvasc) 10 MG tablet Take 1 [...] mouth every 2 days Active vitamin D, ergocalciferol , (Drisdol) 1.25 MG (67402 UT) capsule Take 1 (one) capsule by mouth every 30 days Active acetaminophen (Tylenol) 500 MG tablet Take 1 (one) tablet by mouth every 4 hours as needed for Fever or Pain Maximum allowable Acetaminophen amount = 4 Grams (4000 mg) / 24 hours. Active omeprazole (PriLOSEC) 40 MG capsule omeprazole 40 mg cpdr Active Social History Tobacco Use Types Packs/Day Years Used Date Smoking Tobacco: Never Smokeless Tobacco: Never Tobacco Cessation:Counseling Given: Not Answered Alcohol Use Standard Drinks/Week Comments Never 0 (1 standard drink = 0.6 oz pur e alcohol) Comments Unknown Sex and Gender Information Value Date Recorded Sex Assigned at Not on file Legal Sex Female 6:44 PM AIRCRAFT ENGINE SPECIALIST Gender Identity Not on file Sexual Orientation Not on file Last Filed Vital Signs Vital Sign Reading Time Taken Comments Blood Pressure 154/71 05/03/2022 1:25 PM AIRCRAFT ENGINE SPECIALIST Pulse 80 05/03/2022 1:25 PM AIRCRAFT ENGINE SPECIALIST Temperature 36.5 C (97.7 F) 05/03/2022 1:06 PM AIRCRAFT ENGINE SPECIALIST Respiratory Rate 16 05/03/2022 1:25 PM AIRCRAFT ENGINE SPECIALIST Oxygen Saturation 98% 05/03/2022 1:25 PM AIRCRAFT ENGINE SPECIALIST Inhaled Oxygen Concentration - - Weight 54 kg (119 lb) 05/03/2022 9:55 AM AIRCRAFT ENGINE SPECIALIST Height 157.5 cm (5' 2) 05/03/2022 9:55 AM AIRCRAFT ENGINE SPECIALIST Body Mass Index 21.77 05/03/2022 9:55 AM AIRCRAFT ENGINE SPECIALIST Plan of Treatment Health Maintenance Due Date Last Done Comments BONE DENSITY TESTING 1940 MEDICARE AWV 12 MONTHS 1940 DTAP/TDAP/TD VACCINES (1 - Tdap) 1961 PNEUMOCOCCAL VACCINE 50+ (1 of 1 - PCV) 1992 ZOSTER VACCINE (1 of 2) 1992 Respiratory Syncytial Virus (RSV) Vaccine Pt: or over 60 yrs (1 - 1-dose 75+ series) 2017 COVID-19 VACCINE (2 - season) 2023 02/21/2021 DEPRESSION SCREENING 04/30/2024 INFLUENZA VACCINE (#1) 2024 , 01/08/2019, 01/11/2017, Additional history exists HEPATITIS B VACCINE Aged Out No longe r eligible based on patient's age to complete this topic HIB VACCINE Aged Out No longer eligi ble based on patient's age to complete this topic HPV VACCINE Aged Out No longer eligi ble based on patient's age to complete this topic MENINGOCOCCAL (Group B) VACCINE SHARED DECISION-MAKING Aged Out No longer eligible based on patient's age to complete this topic MENINGOCOCCAL GROUPS A/C/Y/W VACCINE Aged Out No longer eligible based on patient's age to complete this topic Medical Devices Explanted Type Area Green Inspector Device Identifier Shelf Expiration Date Model / Serial / Lot Stent Biliary 10fr 7cm Cntr Bnd Temp [facility] - [id number] Implanted:Qty: 1 on 03/01/2022 by Tam Moncada MD at [facility] Explanted:Qty: 1 on 05/03/2022 by Tam Moncada MD at [facility] N/A: Bile Duct Diveboard Microvasive 11/08/2023 [id number] / [id number] / [id number] Insurance MEDICARE [facility] MEDICARE AETNA [facility] Care Teams Well Logging Captain Mud Analysis Relationship Specialty Start Date End Date Charlie Leblanc MD [address] [facility] [address] [place] [address] PCP - [facility] 08/28/24
--- OUTSIDE RECORDS SUMMARY | 2024-11-26 10:33 | XMS_ITS ---
Author Organization [facility] Address [address] [address] [place] [address] Care Team Providers Care Simulation Software Engineer Name Role Phone Rm Sinclair Unavailable [phone] Problems Problem Type SNOMED Code ICD Code Onset Dates Problem Status W/U Status Risk Notes Problem Diabetic renal disease (358984194) Type 2 diabetes mellitus with diabetic chronic kidney disease (E11.22) Active confirmed Encounters Encounter Location Date Provider Diagnosis [place] [facility] [address] [facility] [address] [place] [address] 06/11/2024 Rm Sinclair Chronic kidney disease, stage 3a N18.31 ; Anxiety disorder, unspecified F41.9 ; Essential hypertension I10 ; Type 2 diabetes mellitus with diabetic chronic kidney disease E11.22 and Hyperkalemia E87.5 Assessments Encounter Date Diagnosis (ICD Code) Assessment Notes Treatment Notes Treatment Clinical Notes Section Notes 06/11/2024 Chronic kidney disease, stage 3a (ICD-10 - N18.31) 06/11/2024 Anxiety disorder, unspecified (ICD-10 - F41.9) 06/11/2024 Essential hypertension (ICD-10 - I10) 06/11/2024 Type 2 diabetes mellitus with diabetic chronic kidney disease (ICD-10 - E11.22) 06/11/2024 Hyperkalemia (ICD-10 - E87.5) Plan Of Treatment Next Appt Details Provider Name:Rm Sinclair , 12/03/2024 02:45:00 PM, [address] [facility], [facility] [address], [place], [address], Progress Notes * LUKAS CAPPSDOB: 3 (84 yo F)Acc No.[id number]:06/11/2024 Progress Notes Patient: LUKAS MARTINEZ Provider: Vale MILNER MD, F.A.C.P, F.A.S.N. :1940 A ge:83 Y S ex:Female Date:06/11/2024 Address:[facility] [address] [address] Subjective: * Chief Complaints: * * Medical History: Objective: * Vitals: Assessment: * Assessment: 1. C hronic kidney disease, stage 3a - N18.31 (Primary) 2 . A nxiety disorder, unspecified - F41.9 3 . E ssential hypertension - I10 4 .?Type 2 diabetes mellitus with diabetic chronic kidney disease - E11.22 5 . H yperkalemia - E87.5 Plan: * Treatment: * Billing Information: * Visit Code: 38499 Office Visit, Est Pt., Level 4. * Procedure Codes: * Electronic signature of Omid Sinclair MD on 11/26/2024 at 10:33 AM CDT Sign off status: Pending * Provider: Vale MILNER MD, F.Maliha.Gaudencio.P, F.A.S.N. Date: 0 06/11/2024 Generated for Printing/Faxing/eTransmitting on: 0 11/26/2024 10:33 AM CDT
== END 2024-11-26 10:02 | disposition home or self-care (01) ==
PROVIDERS: PCP Internal Medicine; Visit Provider Orthopaedic Surgery
DX: M19.042 Primary osteoarthritis, left hand (principal)
CPT/HCPCS: 73130

== ENCOUNTER 2025-01-02 10:37 | Outpatient (CLI) | payer MEDICARE, SELFPAY ==
--- NOTE | ~2025-01-02 | US_ITS ---
EXAMINATION: US venous doppler LE RT DATE: 01/02/2025 11:56 INDICATION: Right lower limb pain and swelling TECHNIQUE: Grayscale ultrasound images without and with compression and Doppler ultrasound images of the right lower extremity veins were obtained. COMPARISON: None. FINDINGS: The visualized portions of right common femoral vein, profunda (deep) femoral vein, femoral vein, popliteal vein, peroneal trunk, posterior tibial veins, peroneal veins, gastrocnemius vein and greater saphenous vein outflow are patent. There is a 2.8 x 1.6 x 3.5 cm, hypoechoic region at the popliteal fossa without internal vascular flow on color Doppler or surrounding hyperemia with configuration on cine imaging most consistent with a Solares's cyst. There is a second more distal lenticular 8.8 x 2.5 x 1.0 cm complex hypoechoic fluid collection situated deep to the subcutaneous fat along the superficial muscular fascia at the upper to mid medial calf without internal vascular flow on color Doppler or surrounding hyperemia which is most suggestive of a hematoma which could be seen with muscle strain. Alternatively this could represent more caudal extension of the Solares's cyst or an abscess in the appropriate setting. IMPRESSION: 1. No deep venous thrombosis in the right lower limb. 2. Couple complex appearing fluid collections at the left popliteal fossa and at the medial proximal to mid left calf, the former with typical appearance for a Solares's cyst. The latter could represent more caudal extension of the Solares's cyst, hematoma cysts in the setting of muscle strain or abscess in the appropriate clinical setting. Reviewed, dictated and finalized at location A. IMPRESSION: 1. No deep venous thrombosis in the right lower limb. 2. Couple complex appearing fluid collections at the left popliteal fossa and a t the medial proximal to mid left calf, the former with typical appearance for a Solares's cyst. The latter could represent more caudal extension of the Solares's cyst, hematoma cysts in the setting of muscle strain or abscess in the appropr iate clinical setting.
--- OUTSIDE RECORDS SUMMARY | 2025-01-02 10:52 | XMS_ITS | Clinical Summary ---
Author Organization [facility] Address [address] [place] [address] Care Team Providers Care Reading Interventionist Name Role Phone Charlie Leblanc MD Unavailable [phone] Source Comments [facility],non-owned Affiliates and Associated Physician Practices is amultiple site organization consisting of ambulatory clinics and hospital sitesin [place], [place] and [place]. This disclosure is being madepursuant to the Care Everywhere program and may not contain all information available regarding this patient. Last updated 18.[facility] Allergies No known active allergies Medications * [...] vitamin D, ergocalciferol , (Drisdol) 1.25 MG (54968 UT) capsule Take 1 (one) capsule by [...] on file Legal Sex Female 6:44 PM TEST TUBE MAKER Gender Identity Not on file Sexual Orientation Not on file Last Filed Vital Signs Vital Sign Reading Time Taken Comments Blood Pressure 154/71 05/03/2022 1:25 PM TEST TUBE MAKER Pulse 80 05/03/2022 1:25 PM TEST TUBE MAKER Temperature 36.5 C (97.7 F) 05/03/2022 1:06 PM TEST TUBE MAKER Respiratory Rate 16 05/03/2022 1:25 PM TEST TUBE MAKER Oxygen Saturation 98% 05/03/2022 1:25 PM TEST TUBE MAKER Inhaled Oxygen Concentration - - Weight 54 kg (119 lb) 05/03/2022 9:55 AM TEST TUBE MAKER Height 157.5 cm (5' 2) 05/03/2022 9:55 AM TEST TUBE MAKER Body Mass Index 21.77 05/03/2022 9:55 AM TEST TUBE MAKER Plan of Treatment Health Maintenance Due Date Last Done Comments BONE DENSITY TESTING 1940 MEDICARE AWV 12 MONTHS 1940 DTAP/TDAP/TD VACCINES (1 - Tdap) 1961 PNEUMOCOCCAL VACCINE 50+ (1 of 1 - PCV) 1992 ZOSTER VACCINE (1 of 2) 1992 Respiratory Syncytial Virus (RSV) Vaccine Pt: or over 60 yrs (1 - 1-dose 75+ series) 2017 DEPRESSION SCREENING 04/30/2024 COVID-19 VACCINE (2 - 2024- season) 2024 02/21/2021 INFLUENZA VACCINE (#1) 2024 , 01/08/2019, 01/11/2017, [...] this topic Medical Devices Explanted Type Area Healthcare Social Worker Device Identifier Shelf Expiration Date Model / Serial / Lot Stent Biliary 10fr 7cm Cntr Bnd Temp [facility] - [id number] Implanted:Qty: 1 on 03/01/2022 by Tam Moncada MD at [facility] Explanted:Qty: 1 on 05/03/2022 by Tam oMncada MD at [facility] N/A: Bile Duct [employer] 11/08/2023 [id number] / [id number] / [id number] Insurance MEDICARE [facility] MEDICARE [employer] [facility] Care Teams Reading Interventionist Relationship Specialty Start Date End Date Charlie Leblanc MD [address] [facility] [address] [place] [address] PCP - [facility] 08/28/24
== END 2025-01-02 10:38 | disposition home or self-care (01) ==
PROVIDERS: PCP Internal Medicine; Visit Provider Orthopaedic Surgery
DX: R60.9 Edema, unspecified (principal)
CPT/HCPCS: 93971